=== PATIENT | male | born 1950 | race American Indian/Alaskan Native ===

== ENCOUNTER 2021-06-15 10:22 | Inpatient (IN) | payer SELFPAY ==
--- NOTE | 2021-06-15 11:07 | Emergency Department Report ---
ED Shortness of Breath HPI - General Chief Complaint: Dyspnea/Respdistress Stated Complaint: SOB Time Seen by Provider: 06/15/21 11:02 Source: patient Mode of arrival: Ambulatory Limitations: No Limitations - History of Present Illness Initial Comments: 70-year-old male with a past medical history of hypertension, hyperlipidemia and diabetes presents to the ER today with complaints of shortness of breath. Patient states that symptoms started about a month ago. He states that his shortness of breath is mainly on exertion and has been getting worse over the past 1 month. He reports left-sided chest pain which started about 1 week ago. He states that is intermittent and nonradiating. He reports chronic intermittent lower extremity swelling, but he states that he has been getting worse over the past couple weeks. He denies any calf pain. He denies any cough, wheezing or fever or chills at home. He denies any URI symptoms. He denies any ill contacts. He denies any history of PEs or DVT and denies any risk factors for PE or DVT. He denies any history of heart disease, or lung disease. He states that he does not smoke. He states that he did take the Vestor vaccine about 3 months ago. Complaint: shortness of breath -: month(s) (1) - Related Data Home Medications Medication Instructions Recorded Confirmed Last Taken NIFEdipine [Nifedipine ER] 60 mg PO BID 06/15/21 06/15/21 06/15/21 07:00 metFORMIN [Glucophage] 500 mg PO BID 06/15/21 06/15/21 Unknown Allergies Allergy/AdvReac Type Severity Reaction Status Date / Time No Known Allergies Allergy Verified 06/15/21 10:30 ED Review of Systems ROS: Stated complaint: SOB Other details as noted in HPI Comment: All other systems reviewed and negative Constitutional: denies: chills, fever, weakness Eyes: denies: eye pain, eye discharge, vision change ENT: denies: ear pain, throat pain, congestion Respiratory: shortness of breath, SOB with exertion. denies: cough, wheezing Cardiovascular: chest pain Gastrointestinal: denies: abdominal pain, nausea, diarrhea, constipation, hematemesis, melena, hematochezia Genitourinary: denies: urgency, dysuria Musculoskeletal: joint swelling. denies: back pain, arthralgia, myalgia Skin: denies: rash, lesions, change in color, change in hair/nails, pruritus Neurological: denies: headache, weakness, numbness, paresthesias, confusion, abnormal gait, vertigo Psychiatric: denies: anxiety, depression, auditory hallucinations, visual hallucinations, homicidal thoughts, suicidal thoughts Hematological/Lymphatic: denies: easy bleeding, swollen glands ED Past Medical Hx - Past Medical History Previous Medical History?: Yes Hx Hypertension: Yes - Surgical History Past Surgical History?: No - Medications Home Medications: Home Medications Medication Instructions Recorded Confirmed Last Taken Type NIFEdipine [Nifedipine ER] 60 mg PO BID 06/15/21 06/15/21 06/15/21 07:00 History metFORMIN [Glucophage] 500 mg PO BID 06/15/21 06/15/21 Unknown History ED Physical Exam - General Limitations: No Limitations General appearance: alert, in no apparent distress - Head Head exam: Present: atraumatic, normocephalic, normal inspection - Eye Eye exam: Present: normal appearance, PERRL, EOMI Pupils: Present: normal accommodation - ENT ENT exam: Present: normal exam, mucous membranes moist, TM's normal bilaterally - Neck Neck exam: Present: normal inspection, full ROM. Absent: meningismus - Respiratory Respiratory exam: Present: normal lung sounds bilaterally. Absent: respiratory distress, wheezes, rales, rhonchi, stridor - Cardiovascular Cardiovascular Exam: Present: regular rate, normal rhythm, normal heart sounds - Extremities Exam Extremities exam: Present: pedal edema (mild 1+ pitting edema ). Absent: calf tenderness - Back Exam Back exam: Present: full ROM - Neurological Exam Neurological exam: Present: alert, oriented X3, CN II-XII intact - Psychiatric Psychiatric exam: Present: normal affect, normal mood - Skin Skin exam: Present: intact ED Course Vital Signs 06/15/21 06/15/21 06/15/21 10:31 11:49 13:15 Temperature 98.5 F 97.4 F L Pulse Rate 99 H 93 H Respiratory 16 16 12 Rate Blood Pressure 162/91 [Left] O2 Sat by Pulse 99 99 99 Oximetry 06/15/21 13:31 Temperature 98.8 F Pulse Rate 87 Respiratory 18 Rate Blood Pressure 156/92 [Left] O2 Sat by Pulse 99 Oximetry ED Medical Decision Making - Lab Data Result diagrams: 06/15/21 11:56 06/15/21 11:56 - EKG Data EKG shows normal: sinus rhythm Rate: normal (97) No standard instances [place]/QRS: left axis deviation Qtc: prolonged - EKG Data Interpretation: nonspecific ST-T wave lencho - Radiology Data Radiology results: report reviewed Patient: REZA MARSH MR#: [id number] : 1950 Acct:[id number] Age/Sex: 70 / M ADM Date: 06/15/21 Loc: ED Attending Dr: Ordering Physician: ITZEL REYNAGA Date of Service: 06/15/21 Procedure(s): XR chest routine 2V Accession Number(s): [id number] cc: ITZEL REYNAGA Fluoro Time In Minutes: CHEST 2 VIEWS INDICATION / CLINICAL INFORMATION: Chest Pain/sob. COMPARISON: None available. FINDINGS: SUPPORT DEVICES: None. HEART / MEDIASTINUM: No significant abnormality. LUNGS / PLEURA: No significant pulmonary or pleural abnormality. No pne umothorax. ADDITIONAL FINDINGS: No significant additional findings. IMPRESSION: 1. No acute findings. Signer Name: Jc Aleman MD Signed: 06/15/2021 11:22 AM Workstation Name: [id number] Transcribed By: SB Dictated By: JC ALEMAN MD Electronically Authenticated By: JC ALEMAN MD Signed Date/Time: 06/15/211121 DD/ 21 TD/TT: [facility] [address] [place] [address] Nuclear Medicine Report Signed Patient: REZA MARSH MR#: [id number] : 1950 Acct:[id number] Age/Sex: 70 / M ADM Date: 06/15/21 Loc: ED Attending Dr: Ordering Physician: ITZEL REYNAGA Date of Service: 06/15/21 Procedure(s): NM perfusion only lung scan Accession Number(s): [id number] cc: ITZEL REYNAGA NUCLEAR MEDICINE PERFUSION SCAN INDICATION: Elevated D-Dimer, SOB CORRELATION: Chest x-ray performed earlier today at 1113 hours RADIOPHARMACEUTICAL: Perfusion: 5.3 mCi Tc-99m MAA given IV FINDINGS: Perfusion images show symmetric and uniform radiotracer distribution throughout bilateral lung zones with no evidence of unmatched segmental perfusion defects. Normal cardiac silhouette. IMPRESSION: Low probability perfusion scan for pulmonary embolism. Signer Name: Lang Mcdermott Jr, MD Signed: 06/15/2021 2:05 PM Workstation Name: [id number] Transcribed By: TTR Dictated By: LANG MCDERMOTT JR, MD Electronically Authenticated By: LANG MCDERMOTT JR, MD Signed Date/Time: 06/15/211404 DD/ 03 TD/TT: - Medical Decision Making 1328; labs reviewed --CBC shows mild anemia with a hemoglobin of 9.5, but otherwise unremarkable; CMP shows that patient is in renal failure with a creatinine of 10.5 and the BUN of 85, his troponin is also positive at 0.103, BNP is 3359, D-dimer is positive at 1059.21; chest x-ray shows nothing acute. Given patient's abnormal renal functions, CTA changed over to a VQ scan. Patient currently laying in the bed comfortably is not in any acute distress. He denies any chest pain currently. He is currently not toxic or ill-appearing. Discussed lab results with patient, he does admit that he has some level of renal insufficiency but he is not on dialysis. He denies again any history of cardiac disease or ever having had a stress test or heart cath in the past and he has never seen a sole tier in the past. Informed patient that given abnormal findings, he will be admitted to the hospital for additional cardiac work-up. 1335: Discussed case with Dr Dale for admission Critical care attestation.: If time is entered above; I have spent that time in minutes in the direct care o f this critically ill patient, excluding procedure time. ED Disposition Clinical Impression: NSTEMI (non-ST elevated myocardial infarction), Renal failure, Elevated d-dimer Disposition: 04 [facility] Is pt being admited?: Yes Condition: Stable
--- NOTE | 2021-06-15 11:27 | XRay Report ---
CHEST 2 VIEWS INDICATION / CLINICAL INFORMATION: Chest Pain/sob. COMPARISON: None available. FINDINGS: SUPPORT DEVICES: None. HEART / MEDIASTINUM: No significant abnormality. LUNGS / PLEURA: No significant pulmonary or pleural abnormality. No pneumothorax. ADDITIONAL FINDINGS: No significant additional findings. IMPRESSION: 1. No acute findings. Signer Name: Jc Aleman MD Signed: 06/15/2021 11:22 AM Workstation Name: [id number]
[2021-06-15 12:24] LABS: Basophils % (Auto) 0.2 % (0.0-1.8); Eosinophils % (Auto) 0.3 % (0.0-4.3); Hematocrit 28.7 % (35.5-45.6); Hemoglobin 9.5 gm/dl (11.8-15.2); Lymphocytes # (Auto) 1.2 K/mm3 (1.2-5.4); Lymphocytes % (Auto) 15.8 % (13.4-35.0); Mean Corpuscular HGB Conc 33 % (32-34); Mean Corpuscular Volume 83 fl (84-94); Monocytes # (Auto) 0.5 K/mm3 (0.0-0.8); Monocytes % (Auto) 6.9 % (0.0-7.3); Platelet Count 164 K/mm3 (140-440); Red Blood Count 3.44 M/mm3 (3.65-5.03); Red Cell Distribution Width 16.4 % (13.2-15.2)
[2021-06-15 12:47] LABS: Albumin 4.2 g/dL (3.9-5); Calcium 6.3 mg/dL (8.4-10.2)
[2021-06-15] MEDS ORDERED: ASPIRIN 325 MG TAB PO ONE (13:18)
--- NOTE | 2021-06-15 14:09 | Nuclear Medicine Report ---
NUCLEAR MEDICINE PERFUSION SCAN INDICATION: Elevated D-Dimer, SOB CORRELATION: Chest x-ray performed earlier today at 1113 hours RADIOPHARMACEUTICAL: Perfusion: 5.3 mCi Tc-99m MAA given IV FINDINGS: Perfusion images show symmetric and uniform radiotracer distribution throughout bilateral lung zones with no evidence of unmatched segmental perfusion defects. Normal cardiac silhouette. IMPRESSION: Low probability perfusion scan for pulmonary embolism. Signer Name: Lang Mcdermott Jr, MD Signed: 06/15/2021 2:05 PM Workstation Name: [id number]
[2021-06-15 15:13] LABS: Chol/HDL Ratio 1.96 %
[2021-06-15] MEDS ORDERED: ACETAMINOPHEN 325 MG TAB PO PRN (17:51)
[2021-06-15] MEDS ORDERED: METOCLOPRAMIDE 10 MG/2 ML INJ IV PRN (17:51)
[2021-06-15] MEDS ORDERED: oxyCODONE /ACETAMINOPHEN 5-325MG TAB PO PRN (17:51)
[2021-06-15] MEDS ORDERED: HYDROmorphone 1 MG/1 ML INJ IV PRN (17:51)
[2021-06-15] MEDS ORDERED: ONDANSETRON 4 MG/2 ML INJ IV PRN (17:51)
--- NOTE | 2021-06-15 17:51 | History and Physical Report ---
History of Present Illness Date of examination: 06/15/21 Date of admission: 06/15/21 13:36 Chief complaint: Shortness of breath for 4 weeks History of present illness: 70-year-old -[place] male with history of chronic kidney disease, hypertension and type 2 diabetes comes in for shortness of breath of unknown duration will also for the last 1 week. Patient with orthopnea. Patient has CKD. For follow-up. Also complains of lower extremity swelling. Patient is shortness of breath on minimal exertion consistent with class IV NYHA symptoms. Also orthopnea present. Patient did not have dialysis but patient knows that he has chronic kidney disease. No fever or chills. Patient is vaccinated. Took [employer] vaccination 3 months ago Patient has no known history of pulmonary embolism or DVT. - Past Medical History Previous Medical History?: Yes --Hypertension: Yes --CKD - Surgical History and Past Surgical History?: No -social history No smoking or drinking alcohol - family history HTN Review of Systems ROS: Stated complaint: SOB Other details as noted in HPI Comment: All other systems reviewed and negative Constitutional: denies: chills, fever, weakness Eyes: denies: eye pain, eye discharge, vision change ENT: denies: ear pain, throat pain, congestion Respiratory: shortness of breath, SOB with exertion. denies: cough, wheezing Cardiovascular: chest pain Gastrointestinal: denies: abdominal pain, nausea, diarrhea, constipation, hematemesis, melena, hematochezia Genitourinary: denies: urgency, dysuria Musculoskeletal: joint swelling. denies: back pain, arthralgia, myalgia Skin: denies: rash, lesions, change in color, change in hair/nails, pruritus Neurological: denies: headache, weakness, numbness, paresthesias, confusion, abnormal gait, vertigo Psychiatric: denies: anxiety, depression, auditory hallucinations, visual hallucinations, homicidal thoughts, suicidal thoughts Hematological/Lymphatic: denies: easy bleeding, swollen glands Medications and Allergies Allergies Allergy/AdvReac Type Severity Reaction Status Date / Time No Known Allergies Allergy Verified 06/15/21 10:30 Home Medications Medication Instructions Recorded Confirmed Last Taken Type NIFEdipine [Nifedipine ER] 60 mg PO BID 06/15/21 06/15/21 06/15/21 07:00 History metFORMIN [Glucophage] 500 mg PO BID 06/15/21 06/15/21 Unknown History Active Meds: Active Medications Nifedipine (Nifedipine Xl 60 Mg Tab) 60 mg PO BID MELLISA Exam - Constitutional Vitals: Temp Pulse Resp BP Pulse Ox 98.8 F 87 18 156/92 99 06/15/21 13:31 06/15/21 13:31 06/15/21 13:31 06/15/21 13:31 06/15/21 13:31 General appearance: Present: mild distress, well-nourished - EENT Eyes: Present: PERRL ENT: hearing intact, clear oral mucosa - Neck Neck: Present: supple, normal ROM - Respiratory Respiratory effort: normal Respiratory: bilateral: CTA - Cardiovascular Heart rate: 78 Rhythm: regular Heart Sounds: Present: S1 & S2. Absent: rub, click - Extremities Extremities: pulses symmetrical, No edema Peripheral Pulses: within normal limits - Abdominal General gastrointestinal: Present: soft, non-tender, non-distended, normal bowel sounds Male genitourinary: Present: normal - Integumentary Integumentary: Present: clear, warm, dry - Musculoskeletal Musculoskeletal: gait normal, strength equal bilaterally - Psychiatric Psychiatric: appropriate mood/affect, intact judgment & insight - Neurologic Neurologic: CNII-XII intact, moves all extremities - Allied Health Allied health notes reviewed: nursing, case management HEART Score - HEART Score History: Slightly suspicious Age: > 65 Risk factors: 1-2 risk factors Troponin: Troponin T 0.105 ng/mL (0.00-0.029) H* 06/15/21 13:40 - Critical Actions Critical Actions: 4-6 pts:12-16.6% risk of adverse cardiac event. Should be admitted Results - Labs CBC & Chem 7: 06/16/21 02:49 06/16/21 02:49 Labs: Laboratory Last Values WBC 7.4 K/mm3 (4.5-11.0) 06/15/21 11:56 RBC 3.44 M/mm3 (3.65-5.03) L 06/15/21 11:56 Hgb 9.5 gm/dl (11.8-15.2) L 06/15/21 11:56 Hct 28.7 % (35.5-45.6) L 06/15/21 11:56 MCV 83 fl (84-94) L 06/15/21 11:56 MCH 28 pg (28-32) 06/15/21 11:56 MCHC 33 % (32-34) 06/15/21 11:56 RDW 16.4 % (13.2-15.2) H 06/15/21 11:56 Plt Count 164 K/mm3 (140-440) 06/15/21 11:56 Lymph % (Auto) 15.8 % (13.4-35.0) 06/15/21 11:56 [place] % (Auto) 6.9 % (0.0-7.3) 06/15/21 11:56 Eos % (Auto) 0.3 % (0.0-4.3) 06/15/21 11:56 Baso % (Auto) 0.2 % (0.0-1.8) 06/15/21 11:56 Lymph # (Auto) 1.2 K/mm3 (1.2-5.4) 06/15/21 11:56 [place] # (Auto) 0.5 K/mm3 (0.0-0.8) 06/15/21 11:56 Eos # (Auto) 0.0 K/mm3 (0.0-0.4) 06/15/21 11:56 Baso # (Auto) 0.0 K/mm3 (0.0-0.1) 06/15/21 11:56 Seg Neutrophils % 76.8 % (40.0-70.0) H 06/15/21 11:56 Seg Neutrophils # 5.7 K/mm3 (1.8-7.7) 06/15/21 11:56 D-Dimer 1059.21 ng/mlDDU (0-234) H 06/15/21 11:56 Sodium 138 mmol/L (137-145) 06/15/21 11:56 Potassium 4.7 mmol/L (3.6-5.0) 06/15/21 11:56 Chloride 96.3 mmol/L (98-107) L 06/15/21 11:56 Carbon Dioxide 22 mmol/L (22-30) 06/15/21 11:56 Anion Gap 24 mmol/L 06/15/21 11:56 BUN 85 mg/dL (9-20) H 06/15/21 11:56 Creatinine 10.5 mg/dL (0.8-1.3) H 06/15/21 11:56 Estimated GFR 5 ml/min 06/15/21 11:56 BUN/Creatinine Ratio 8 % 06/15/21 11:56 Glucose 146 mg/dL (75-100) H 06/15/21 11:56 Calcium 6.3 mg/dL (8.4-10.2) L 06/15/21 11:56 Magnesium 1.90 mg/dL (1.7-2.3) 06/15/21 13:40 Total Bilirubin 0.30 mg/dL (0.1-1.2) 06/15/21 11:56 AST 11 units/L (5-40) 06/15/21 11:56 ALT 10 units/L (7-56) 06/15/21 11:56 Alkaline Phosphatase 86 units/L (35-129) 06/15/21 11:56 Troponin T 0.105 ng/mL (0.00-0.029) H* 06/15/21 13:40 NT-Pro-B Natriuret Pep 3327 pg/mL (0-900) H 06/15/21 13:40 Total Protein 7.5 g/dL (6.3-8.2) 06/15/21 11:56 Albumin 4.2 g/dL (3.9-5) 06/15/21 11:56 Albumin/Globulin Ratio 1.3 % 06/15/21 11:56 Triglycerides 67 mg/dL (2-149) 06/15/21 11:56 Cholesterol 130 mg/dL (50-199) 06/15/21 11:56 LDL Cholesterol Direct 55 mg/dL (50-130) 06/15/21 11:56 HDL Cholesterol 66 mg/dL (40-59) H 06/15/21 11:56 Cholesterol/HDL Ratio 1.96 % 06/15/21 11:56 Lipase 41 units/L (13-60) 06/15/21 11:56 - Imaging and Cardiology EKG: report reviewed Imaging and Cardiology: Chest x-ray No acute findings Pulmonary perfusion scan Low probability perfusion scan for pulmonary embolism Assessment and Plan Advance Directives: Yes (Full code) VTE prophylaxis?: Chemical Plan of care discussed with patient/family: Yes - Patient Problems (1) NSTEMI (non-ST elevated myocardial infarction) Current Visit: Yes Status: Acute Plan to address problem: Secondary to troponin leak CK-MBs--normal Cardiology consult Heparin was not initiated at this point because NSTEMI type II leak is more common in the setting Lexiscan if cardiology agrees (2) ESRD needing dialysis Current Visit: Yes Status: Acute Plan to address problem: Patient never had dialysis before Creatinine is around 10,5 (3) Uncontrolled hypertension Current Visit: Yes Status: Acute Plan to address problem: Patient initiated on valsartan one 6212 and Coreg 12.5 twice daily.. Patient is on Procardia XL 60 twice a day from home Adjust medications as necessary IV hydralazine 10 mg every 3 hours as needed for blood pressure more than 160/100 (4) Volume overload Current Visit: Yes Status: Acute Qualifiers: Hypervolemia type: other Qualified Code(s): E87.79 - Other fluid overload Plan to address problem: Secondary to end-stage renal disease and fluid retention Patient needs hemodialysis Vascular surgery consult requested for Vas-Cath placement (5) Acute exacerbation of CHF (congestive heart failure) Current Visit: Yes Status: Acute Qualifiers: Heart failure type: combined systolic and diastolic Qualified Code(s): I50.43 - Acute on chronic combined systolic (congestive) and diastolic (congestive) heart failure Plan to address problem: Echocardiogram for ejection fraction and valve function Needs emergent hemodialysis for increased ultrafiltration (6) DVT prophylaxis Current Visit: Yes Status: Acute Plan to address problem: On heparin and GI prophylaxis
[2021-06-15] MEDS ORDERED: hydrALAZINE 20 MG/1 ML INJ IV PRN (18:10)
[2021-06-15 20:02] LABS: Creatine Kinase MB 4.3 ng/mL (0.0-4.0)
[2021-06-15] MEDS: VALSARTAN 160MG TAB PO SCH (21:09)
[2021-06-15] MEDS ORDERED: NON-FORMULARY EACH (Nifedipine [Nifedipine Er] 60 MG Tablet.Er) PO SCH (22:00)
[2021-06-16] MEDS: FAMOTIDINE 20 MG TAB PO SCH ×2 (00:05→10:10)
[2021-06-16] MEDS: carvediloL 12.5 MG TAB PO SCH ×2 (00:05→10:10)
[2021-06-16] MEDS: NIFEdipine XL 60 MG TAB PO SCH ×2 (00:06→10:10)
[2021-06-16] MEDS: HEPARIN 5,000 UNIT/1 ML VIAL SUB-Q SCH ×2 (00:06→10:10)
[2021-06-16 01:49] LABS: Creatine Kinase MB 4.3 ng/mL (0.0-4.0)
[2021-06-16 03:12] LABS: Basophils % (Auto) 0.5 % (0.0-1.8); Eosinophils # (Auto) 0.1 K/mm3 (0.0-0.4); Eosinophils % (Auto) 1.5 % (0.0-4.3); Hematocrit 29.5 % (35.5-45.6); Hemoglobin 9.6 gm/dl (11.8-15.2); Lymphocytes # (Auto) 1.8 K/mm3 (1.2-5.4); Lymphocytes % (Auto) 25.9 % (13.4-35.0); Mean Corpuscular HGB Conc 33 % (32-34); Mean Corpuscular Volume 83 fl (84-94); Monocytes # (Auto) 0.5 K/mm3 (0.0-0.8); Monocytes % (Auto) 6.7 % (0.0-7.3); Platelet Count 189 K/mm3 (140-440); Red Blood Count 3.57 M/mm3 (3.65-5.03); Red Cell Distribution Width 16.5 % (13.2-15.2)
[2021-06-16 04:02] LABS: Albumin 4.4 g/dL (3.9-5); Calcium 6.4 mg/dL (8.4-10.2)
[2021-06-16] MEDS: VALSARTAN 160MG TAB PO SCH (08:00)
[2021-06-16 08:03] LABS: Creatine Kinase MB 3.8 ng/mL (0.0-4.0)
--- NOTE | 2021-06-16 09:02 | Consultation ---
History of Present Illness - Reason for Consult Consult date: 06/16/21 Acute on chronic renal failure - History of Present Illness Patient with a history of known chronic kidney disease who follows up with a complex case manager in [place]. He presents complaining of worsening shortness of breath. PE work-up is negative. Patient is noted to have significantly worsening renal function. Beyond the shortness of breath, the patient has no complaints Past History Past Medical History: ESRD Medications and Allergies Allergies Allergy/AdvReac Type Severity Reaction Status Date / Time No Known Allergies Allergy Verified 06/15/21 10:30 Home Medications Medication Instructions Recorded Confirmed Last Taken Type NIFEdipine [Nifedipine ER] 60 mg PO BID 06/15/21 06/15/21 06/15/21 07:00 History metFORMIN [Glucophage] 500 mg PO BID 06/15/21 06/15/21 Unknown History Active Meds: Active Medications Acetaminophen (Acetaminophen 325 Mg Tab) 650 mg PO Q4H PRN PRN Reason: Pain MILD(1-3)/Fever >100.5/TAVERAS Carvedilol (Carvedilol 12.5 Mg Tab) 12.5 mg PO BID [facility] Last Admin: 06/16/21 00:05 Dose: 12.5 mg Documented by: Famotidine (Famotidine 20 Mg Tab) 20 mg PO BID [facility] Last Admin: 06/16/21 00:05 Dose: 20 mg Documented by: Heparin Sodium (Porcine) (Heparin 5,000 Unit/1 Ml Vial) 5,000 unit SUB-Q Q12HR [facility] Last Admin: 06/16/21 00:06 Dose: 5,000 unit Documented by: Hydralazine HCl (Hydralazine 20 Mg/1 Ml Inj) 10 mg IV Q3H PRN PRN Reason: Blood Pressure Hydromorphone HCl (Hydromorphone 1 Mg/1 Ml Inj) 0.5 mg IV Q3H PRN PRN Reason: Pain , Severe (7-10) Metoclopramide HCl (Metoclopramide 10 Mg/2 Ml Inj) 10 mg IV Q6H PRN PRN Reason: Nausea And Vomiting Nifedipine (Nifedipine Xl 60 Mg Tab) 60 mg PO BID [facility] Last Admin: 06/16/21 00:06 Dose: 60 mg Documented by: Ondansetron HCl (Ondansetron 4 Mg/2 Ml Inj) 4 mg IV Q3H PRN PRN Reason: Nausea And Vomiting Oxycodone/Acetaminophen (Oxycodone /Acetaminophen 5-325mg Tab) 1 tab PO Q6H PRN PRN Reason: Pain, Moderate (4-6) Sodium Chloride (Sodium Chloride 0.9% 10 Ml Flush Syringe) 10 ml IV BID [facility] Last Admin: 06/15/21 22:00 Dose: 10 ml Documented by: Sodium Chloride (Sodium Chloride 0.9% 10 Ml Flush Syringe) 10 ml IV PRN PRN PRN Reason: LINE FLUSH Valsartan (Valsartan 160mg Tab) 160 mg PO Q12H [facility] Last Admin: 06/15/21 21:09 Dose: 160 mg Documented by: Review of Systems All systems: negative Exam - Constitutional Vitals: Temp Pulse Resp BP Pulse Ox 98.0 F 78 18 109/64 97 06/16/21 08:03 06/16/21 08:03 06/16/21 08:03 06/16/21 08:03 06/16/21 08:03 General appearance: Present: no acute distress, obese - EENT Eyes: Present: EOM intact ENT: hearing intact - Neck Neck: Present: normal ROM - Respiratory Respiratory effort: normal - Abdominal General gastrointestinal: Present: deferred Male genitourinary: Present: deferred - Rectal Rectal Exam: deferred - Psychiatric Psychiatric: appropriate mood/affect, cooperative Results - Labs CBC & Chem 7: 06/16/21 02:49 06/16/21 02:49 Labs: Abnormal lab results 06/15/21 06/15/21 06/15/21 Range/Units 11:56 11:56 11:56 RBC 3.44 L (3.65-5.03) M/mm3 Hgb 9.5 L (11.8-15.2) gm/dl Hct 28.7 L (35.5-45.6) % MCV 83 L (84-94) fl MCH (28-32) pg RDW 16.4 H (13.2-15.2) % Seg Neutrophils % 76.8 H (40.0-70.0) % D-Dimer 1059.21 H (0-234) ng/mlDDU Chloride 96.3 L (98-107) mmol/L Carbon Dioxide (22-30) mmol/L BUN 85 H (9-20) mg/dL Creatinine 10.5 H (0.8-1.3) mg/dL Glucose 146 H (75-100) mg/dL Calcium 6.3 L (8.4-10.2) mg/dL Total Creatine Kinase (55-170) units/L CK-MB (CK-2) (0.0-4.0) ng/mL Troponin T 0.103 H* (0.00-0.029) ng/mL NT-Pro-B Natriuret Pep (0-900) pg/mL HDL Cholesterol 66 H (40-59) mg/dL 06/15/21 06/15/21 06/15/21 Range/Units 11:56 13:40 13:40 RBC (3.65-5.03) M/mm3 Hgb (11.8-15.2) gm/dl Hct (35.5-45.6) % MCV (84-94) fl MCH (28-32) pg RDW (13.2-15.2) % Seg Neutrophils % (40.0-70.0) % D-Dimer (0-234) ng/mlDDU Chloride (98-107) mmol/L Carbon Dioxide (22-30) mmol/L BUN (9-20) mg/dL Creatinine (0.8-1.3) mg/dL Glucose (75-100) mg/dL Calcium (8.4-10.2) mg/dL Total Creatine Kinase (55-170) units/L CK-MB (CK-2) (0.0-4.0) ng/mL Troponin T 0.105 H* (0.00-0.029) ng/mL NT-Pro-B Natriuret Pep 3359 H 3327 H (0-900) pg/mL HDL Cholesterol (40-59) mg/dL 06/15/21 06/16/21 06/16/21 Range/Units 19:17 00:45 02:49 RBC 3.57 L (3.65-5.03) M/mm3 Hgb 9.6 L (11.8-15.2) gm/dl Hct 29.5 L (35.5-45.6) % MCV 83 L (84-94) fl MCH 27 L (28-32) pg RDW 16.5 H (13.2-15.2) % Seg Neutrophils % (40.0-70.0) % D-Dimer (0-234) ng/mlDDU Chloride (98-107) mmol/L Carbon Dioxide (22-30) mmol/L BUN (9-20) mg/dL Creatinine (0.8-1.3) mg/dL Glucose (75-100) mg/dL Calcium (8.4-10.2) mg/dL Total Creatine Kinase 1195 H 1207 H (55-170) units/L CK-MB (CK-2) 4.3 H 4.3 H (0.0-4.0) ng/mL Troponin T (0.00-0.029) ng/mL NT-Pro-B Natriuret Pep (0-900) pg/mL HDL Cholesterol (40-59) mg/dL 06/16/21 06/16/21 Range/Units 02:49 06:54 RBC (3.65-5.03) M/mm3 Hgb (11.8-15.2) gm/dl Hct (35.5-45.6) % MCV (84-94) fl MCH (28-32) pg RDW (13.2-15.2) % Seg Neutrophils % (40.0-70.0) % D-Dimer (0-234) ng/mlDDU Chloride 95.9 L (98-107) mmol/L Carbon Dioxide 19 L (22-30) mmol/L BUN 88 H (9-20) mg/dL Creatinine 11.0 H (0.8-1.3) mg/dL Glucose 169 H (75-100) mg/dL Calcium 6.4 L (8.4-10.2) mg/dL Total Creatine Kinase 985 H (55-170) units/L CK-MB (CK-2) (0.0-4.0) ng/mL Troponin T (0.00-0.029) ng/mL NT-Pro-B Natriuret Pep (0-900) pg/mL HDL Cholesterol (40-59) mg/dL Assessment and Plan Patient will be brought down the Technical Maintenance Specialist today for placement of a Vas-Cath.
--- NOTE | 2021-06-16 09:57 | Consultation ---
History of Present Illness - Reason for Consult Consult date: 06/16/21 acute renal failure, end stage renal disease - History of Present Illness This is a 70 year-old man with ESRD who presents for shortness of breath, concerning renal labs Patient recently moved to the area from [place]. He does not have a local shovel operator but had labs showing creatinine of 11. Does have a history of CHF as well. Patient notes that he is feeling fine this AM, never had true shortness of breath per his report. Per his request, spoke with his prior shovel operator from [place] Dr. Alyssa Francisco at length this morning. He notes that clinically that patient has been stable, and in reviewing his renal f unction/electrolytes, he is at his baseline. He was working with the patient to start outpatient dialysis, but patient has been resistant to doing so. Currently, patient denies any issues including dyspnea, edema, nausea, vomiting, headaches. Past History Past Medical History: ESRD Past Surgical History: No surgical history Social history: no significant social history Family history: no significant family history Medications and Allergies Allergies Allergy/AdvReac Type Severity Reaction Status Date / Time No Known Allergies Allergy Verified 06/15/21 10:30 Home Medications Medication Instructions Recorded Confirmed Last Taken Type NIFEdipine [Nifedipine ER] 60 mg PO BID 06/15/21 06/15/21 06/15/21 07:00 History metFORMIN [Glucophage] 500 mg PO BID 06/15/21 06/15/21 Unknown History Active Meds: Active Medications Acetaminophen (Acetaminophen 325 Mg Tab) 650 mg PO Q4H PRN PRN Reason: Pain MILD(1-3)/Fever >100.5/TAVERAS Carvedilol (Carvedilol 12.5 Mg Tab) 12.5 mg PO BID [facility] Last Admin: 06/16/21 00:05 Dose: 12.5 mg Documented by: Famotidine (Famotidine 20 Mg Tab) 20 mg PO BID [facility] Last Admin: 06/16/21 00:05 Dose: 20 mg Documented by: Heparin Sodium (Porcine) (Heparin 5,000 Unit/1 Ml Vial) 5,000 unit SUB-Q Q12HR [facility] Last Admin: 06/16/21 00:06 Dose: 5,000 unit Documented by: Hydralazine HCl (Hydralazine 20 Mg/1 Ml Inj) 10 mg IV Q3H PRN PRN Reason: Blood Pressure Hydromorphone HCl (Hydromorphone 1 Mg/1 Ml Inj) 0.5 mg IV Q3H PRN PRN Reason: Pain , Severe (7-10) Metoclopramide HCl (Metoclopramide 10 Mg/2 Ml Inj) 10 mg IV Q6H PRN PRN Reason: Nausea And Vomiting Nifedipine (Nifedipine Xl 60 Mg Tab) 60 mg PO BID [facility] Last Admin: 06/16/21 00:06 Dose: 60 mg Documented by: Ondansetron HCl (Ondansetron 4 Mg/2 Ml Inj) 4 mg IV Q3H PRN PRN Reason: Nausea And Vomiting Oxycodone/Acetaminophen (Oxycodone /Acetaminophen 5-325mg Tab) 1 tab PO Q6H PRN PRN Reason: Pain, Moderate (4-6) Sodium Chloride (Sodium Chloride 0.9% 10 Ml Flush Syringe) 10 ml IV BID [facility] Last Admin: 06/15/21 22:00 Dose: 10 ml Documented by: Sodium Chloride (Sodium Chloride 0.9% 10 Ml Flush Syringe) 10 ml IV PRN PRN PRN Reason: LINE FLUSH Valsartan (Valsartan 160mg Tab) 160 mg PO Q12H [facility] Last Admin: 06/15/21 21:09 Dose: 160 mg Documented by: Review of Systems All systems: negative (as per HPI) Exam - Vital Signs Vital signs: Vital Signs Temp Pulse Resp BP Pulse Ox 98.5 F 99 H 16 162/91 99 06/15/21 10:31 06/15/21 10:31 06/15/21 10:31 06/15/21 10:31 06/15/21 10:31 - Physical Exam Narrative exam: Constitutional: no acute distress Head: NC/AT Neck: supple Lungs: clear to auscultation CV: RRR, no M/R/G Abdomen: soft, non-tender, bowel sounds present Back: nontender Extremities: no edema, pulses WNL Skin: intact Neuro: no focal deficits, alert and oriented x4 Results - Lab Results 06/16/21 02:49 06/16/21 02:49 Most recent lab results Calcium 6.4 mg/dL (8.4-10.2) L 06/16/21 02:49 Magnesium 1.90 mg/dL (1.7-2.3) 06/15/21 13:40 Assessment and Plan This is a 70 year old man with known CKD 5 who presents with abnormal labs. # ESRD: known for some time with active planning in outpatient basis in [place]. As noted, spoke at length today with his primary shovel operator in [place] who notes he is at baseline clinical status No immediate need for renal replacement therapy given his electrolytes/volume status, but will need planning for access in outpatient setting as well as dialysis planning, can be arranged as an outpatient - daily labs while inpatient - renally dose meds - avoid nephrotoxins - renal diet - we will arrange close outpatient CKD/ESKD follow up in next week with repeat labs, etc - please ensure outpatient vascular follow up and vein mapping with Dr. Morgan, et al; otherwise will refer on outpatient basis - no emergent need for HD # Acidosis: will start NaHCO3 repletion, please ensure prescription sent on discharge # Anemia: last hemoglobin 9.5, will need local bean picker machine operator for ESAs/IV iron, will refer as outpatient # HTN: BP stable this morning on current regimen # Secondary Hyperparathyroidism: check PTH, P as outpatient.
--- NOTE | 2021-06-16 10:35 | Electrocardiograph Report ---
[facility] Test Date: 2021-06-15 Test Time: 12:04:39 Pat Name: REZA MARSH Department: Room: A466 Gender: M Credit Portfolio Advisor: VINCENT : 1950 Requested By: ITZEL REYNAGA Order Number: [id number] Reading MD: Rashawn Gee Measurements Intervals [place] Rate: 87 P: 60 [place]: 190 QRS: -34 QRSD: 91 T: 77 QT: 416 QTc: 502 Interpretive Statements Sinus rhythm Probable left atrial enlargement Left axis deviation Probable anteroseptal infarct, old Prolonged QT interval No previous ECG available for comparison Electronically Signed On 06-16-2021 10:34:50 EDT by Rashawn Gee
--- NOTE | 2021-06-16 10:37 | Electrocardiograph Report ---
[facility] Test Date: 2021-06-16 Test Time: 07:17:42 Pat Name: REZA MARSH Department: Room: A466 1 Gender: M 911 Telecommunicator: PATRICE : 1950 Requested By: ITZEL REYNAGA Order Number: [id number] Reading MD: Rashawn Gee Measurements Intervals [place] Rate: 82 P: 63 MT: 203 QRS: -50 QRSD: 85 T: 69 QT: 428 QTc: 500 Interpretive Statements Sinus rhythm Left anterior fascicular block Compared to ECG 06/15/2021 12:04:39 Left anterior fascicular block now present Left-axis deviation no longer present Myocardial infarct finding no longer present Prolonged QT interval no longer present Electronically Signed On 06-16-2021 10:37:13 EDT by Rashawn Gee
[2021-06-16] MEDS ORDERED: FLU VACC QUAD 2021-22(6MOS UP)/PF 60 MCG/0.5 ML SYRINGE IM ONE (12:00)
--- NOTE | 2021-06-16 13:34 | XRay Report ---
LEFT FOOT 2 VIEW(S) INDICATION / CLINICAL INFORMATION: Left ankle pain COMPARISON: None available. FINDINGS: BONES / JOINT(S): No acute fracture or subluxation. Mild polyarticular arthritis DIP PIP joints of fi rst through fifth toes. Moderate degenerative arthrosis subtalar and talonavicular joints. SOFT TISSUES: Moderate dorsal soft tissue swelling ADDITIONAL FINDINGS: None. Signer Name: Maxime Fleming MD Signed: 06/16/2021 1:30 PM Workstation Name: [id number]
--- NOTE | 2021-06-16 14:31 | Discharge Summary ---
Providers - Providers Date of Admission: 06/15/21 13:36 Date of discharge: 06/16/21 Attending physician: SVETA MARCUS MD 06/15/21 17:51 Consult to Physician [CONS] Routine Comment: Consulting Provider: JOSEPH MORAN Physician Instructions: Reason For Exam: esrd 06/15/21 19:50 Consult to Physician [CONS] Routine Comment: Consulting Provider: SARAH TORREZ Physician Instructions: Reason For Exam: Vas-Cath placement Primary care physician: [employer] Hospitalization Reason for admission: Shortness of breath Condition: Good Pertinent studies: Reviewed. Procedures: None. Hospital course: The patient is a 70-year-old -Cymro male with history of chronic kidney disease, hypertension and type 2 diabetes presents with shortness of breath of for approximately 1 week. The patient was found to have significant CKD (stage V) leading to concerns for volume overload requiring emergent hemodialysis. The patient's symptoms resolved and he is currently saturating well on room air. Nephrology was consulted (who contacted his prior senior sous chef in [place]) and recommended permacath placement in the outpatient setting. The patient currently does not exhibit any symptoms or severe acidosis requiring emergent hemodialysis at this point in time. The patient is currently euvolemic per the last assessment. The patient complained of left ankle swelling that was evaluated with x-ray, and imaging was found to be ne gative for any acute abnormalities but positive for signs of chronic degenerative arthrosis. The patient is safe for discharge, and patient expressed understanding. The patient will follow up with nephrology in the outpatient setting for establishment of hemodialysis. Disposition: 01 HOME / SELF CARE / HOMELESS Final Discharge Diagnosis (Prints w/discharge instructions): Chronic kidney disease stage 5; metabolic acidosis with anion gap Time spent for discharge: 40 Core Measure Documentation - Palliative Care Palliative Care/ Comfort Measures: Not Applicable - Core Measures Any of the following diagnoses?: none - VTE Discharge Requirements Deep Vein Thrombosis/Pulmonary Embolism Present on Admission: No Has pt received <5 days of overlap therapy or INR<2.0: No (Not indicated) Anticoagulant overlap therapy prescribed at discharge: No Contraindication No Overlap Therapy order at DC: Not Indicated - Acute [place] Discharge Requirements Aspirin at discharge: No Reason for no aspirin on DC: Medical contraindication (Not indicated) SHELLY/ARB for LVSD if EF <40%: Not Applicable Reason for no SHELLY/ARB: Medical contraindication (Not indicated) Beta bran at discharge: No Reason for no beta bran on DC: Medical contraindication (Not indicated) Statin for LDL = or >100 mg/dl on DC: Not Applicable Reason for no statin on DC: Medical contraindication (Not indicated) - Heart Failure Discharge Requirements SHELLY/ARB for LVSD if EF <40%: Not Applicable Reason for no SHELLY/ARB: Medical contraindication (Not indicated) Beta bran at discharge: No Reason for no beta bran on DC: Medical contraindication (Not indicated) - Stroke Discharge Requirements Statin for LDL = or >70 mg/dl on DC: Not Applicable Reason for no statin on DC: Not Indicated Anticoag for atrial fib/atrial flutter: Not Applicable Reason for no anticoag for AF/F on DC: Not Indicated Antithrombotic for ischemic stroke: No Reason for no antithrombotic on DC: Not Indicated Exam - Constitutional Vitals: Temp Pulse Resp BP Pulse Ox 98.0 F 86 18 128/79 97 06/16/21 08:03 06/16/21 10:10 06/16/21 08:03 06/16/21 10:10 06/16/21 08:03 General appearance: Present: no acute distress, well-nourished, obese - EENT Eyes: Present: PERRL, EOM intact ENT: hearing intact, clear oral mucosa, dentition normal - Neck Neck: Present: supple, normal ROM - Respiratory Respiratory effort: normal - Cardiovascular Rhythm: regular Heart Sounds: Present: S1 & S2 - Extremities Extremities: no ischemia, pulses intact, pulses symmetrical, normal temperature, normal color Extremity abnormal: edema (Mild edema of left ankle) Peripheral Pulses: within normal limits - Abdominal General gastrointestinal: Present: soft, non-tender, non-distended, normal bowel sounds Male genitourinary: Present: deferred - Rectal Rectal Exam: deferred - Integumentary Integumentary: Present: clear, warm, dry - Musculoskeletal Musculoskeletal: strength equal bilaterally - Psychiatric Psychiatric: appropriate mood/affect, intact judgment & insight, memory intact, cooperative - Neurologic Neurologic: CNII-XII intact, moves all extremities - Allied Health Allied health notes reviewed: nursing Plan Activity: no restrictions Diet: renal Care Plan Goals: Patient will follow up with outpatient nephrology to establish plan for initiating hemodialysis. Health Concerns: Patient should return to the ER if they experience any of the following: Shortness of breath, chest pain/chest pressure, inability to produce urine, uncontrollable nausea and vomiting, weakness, or confusion. Assessment: Discharging home with family. Follow up with: PRIMARY CARE, [Primary Care Provider] - 7 Days AIDEN MARLOW MD [Staff Physician] - 14 Days Prescriptions: carvediloL [Coreg] 12.5 mg PO BID #30 tablet Valsartan [Diovan] 160 mg PO Q12H #30 tablet NIFEdipine XL [Procardia Xl] 60 mg PO BID #30 tablet
[2021-06-16 17:22] VITALS: BP 122/71
[2021-06-16] MEDS ORDERED: FAMOTIDINE 20 MG TAB PO SCH (22:00)
[2021-06-17] MEDS ORDERED: FLU VACC QUAD 2021-22(6MOS UP)/PF 60 MCG/0.5 ML SYRINGE IM ONE (12:00)
== END 2021-06-16 17:24 | disposition home or self-care (01) | DRG 280 ==
LOC: ED 10:22 → 4A 13:36
PROVIDERS: ADMIT Internal Medicine; ATTEND Student in an Organized Health Care Education/Training Program
DX: I13.2 Hypertensive heart and chronic kidney disease with heart failure and with stage 5 chronic kidney disease, or end stage renal disease (principal); N18.6 End stage renal disease; I21.A1 Myocardial infarction type 2; I50.43 Acute on chronic combined systolic (congestive) and diastolic (congestive) heart failure; E87.2 Acidosis; N25.81 Secondary hyperparathyroidism of renal origin; E78.5 Hyperlipidemia, unspecified; Z79.84 Long term (current) use of oral hypoglycemic drugs; E11.22 Type 2 diabetes mellitus with diabetic chronic kidney disease; D64.9 Anemia, unspecified
CPT/HCPCS: 36415; 71046; 78580; 80053; 80061; 82550; 82553; 83690; 83735; 83880; 84484; 85025; 85379; 93005; G0378; A9540; J1644

== ENCOUNTER 2021-06-29 15:16 | Inpatient (IN) | payer MEDICAID ==
--- NOTE | 2021-06-29 16:01 | Event Note ---
ED Screening Note ED Screening Note: Patient presents sent in by his speed runner Dr. Diaz He states he needs dialysis and they are planning to put a port in He states he has lower extremity edema worse in the left ankle This initial assessment/diagnostic orders/clinical plan/treatment(s) is/are subject to change based on patients health status, clinical progression and re- assessment by fellow clinical providers in the ED. Further treatment and workup at subsequent clinical providers discretion. Patient/guardian urged not to elope from the ED as their condition may be serious if not clinically assessed and managed. Initial orders include: Labs
[2021-06-29 16:20] LABS: Basophils % (Auto) 0.5 % (0.0-1.8); Eosinophils # (Auto) 0.1 K/mm3 (0.0-0.4); Eosinophils % (Auto) 1.3 % (0.0-4.3); Hematocrit 26.6 % (35.5-45.6); Hemoglobin 8.6 gm/dl (11.8-15.2); Lymphocytes # (Auto) 1.1 K/mm3 (1.2-5.4); Mean Corpuscular HGB Conc 32 % (32-34); Mean Corpuscular Volume 84 fl (84-94); Monocytes # (Auto) 0.6 K/mm3 (0.0-0.8); Monocytes % (Auto) 8.5 % (0.0-7.3); Platelet Count 153 K/mm3 (140-440); Red Blood Count 3.18 M/mm3 (3.65-5.03); Red Cell Distribution Width 17.4 % (13.2-15.2)
[2021-06-29 16:39] LABS: Albumin 4.1 g/dL (3.9-5); Calcium 6.4 mg/dL (8.4-10.2)
[2021-06-29] MEDS ORDERED: SODIUM BICARB 8.4% 50 MEQ/50 ML SYRINGE IV ONE (17:06)
[2021-06-29] MEDS ORDERED: SODIUM POLYSTYRENE 15 GM/60 ML ORAL LIQD PO ONE (17:07)
[2021-06-29] MEDS ORDERED: INSULIN REGULAR, HUMAN 100 UNITS/1 ML IV ONE (17:08)
[2021-06-29] MEDS ORDERED: DEXTROSE 50% IN WATER (25GM) 50 ML SYRINGE IV ONE (17:09)
--- NOTE | 2021-06-29 17:11 | Emergency Department Report ---
ED General Adult HPI - General Chief complaint: Recheck/Abnormal Lab/Rx Stated complaint: DIALYSIS, HIGH BLOOD PRESS Time Seen by Provider: 06/29/21 15:59 Source: patient Mode of arrival: Ambulatory Limitations: No Limitations - History of Present Illness Initial comments: Patient presents to the emergency department the chief complaint of lower extremity swelling. Patient presents to the ED by way of his forest pathology professor office was Dr. Orr. He has a history of chronic kidney disease stage V and is here for evaluation for dialysis. Patient denies chest pain or shortness of breath with exertion. He does complain of tightness of his lower extremities due to the swelling. -: Gradual Location: lower extremity Severity scale (0 -10): 2 Quality: other (tight) Consistency: constant Improves with: none Worsens with: none Associated Symptoms: denies other symptoms Treatments Prior to Arrival: none - Related Data Home Medications Medication Instructions Recorded Confirmed Last Taken NIFEdipine [Nifedipine ER] 60 mg PO BID 06/15/21 06/15/21 06/15/21 07:00 Previous Rx's Medication Instructions Recorded Last Taken Type NIFEdipine XL [Procardia Xl] 60 mg PO BID #30 tablet 06/16/21 Unknown Rx Valsartan [Diovan] 160 mg PO Q12H #30 tablet 06/16/21 Unknown Rx carvediloL [Coreg] 12.5 mg PO BID #30 tablet 06/16/21 Unknown Rx Allergies Allergy/AdvReac Type Severity Reaction Status Date / Time No Known Allergies Allergy Verified 06/15/21 10:30 ED Review of Systems ROS: Stated complaint: DIALYSIS, HIGH BLOOD PRESS Other details as noted in HPI Comment: All other systems reviewed and negative Constitutional: denies: chills, fever Eyes: denies: eye pain, eye discharge, vision change ENT: denies: ear pain, throat pain Respiratory: denies: cough, shortness of breath, wheezing Cardiovascular: denies: chest pain, palpitations Endocrine: no symptoms reported Gastrointestinal: denies: abdominal pain, nausea, diarrhea Genitourinary: denies: urgency, dysuria Musculoskeletal: denies: back pain, joint swelling, arthralgia Skin: denies: rash, lesions Neurological: denies: headache, weakness, paresthesias Psychiatric: denies: anxiety, depression Hematological/Lymphatic: denies: easy bleeding, easy bruising ED Past Medical Hx - Past Medical History Previous Medical History?: Yes Hx Hypertension: Yes Hx Renal Disease: Yes - Surgical History Past Surgical History?: No - Social History Smoking Status: Never Smoker Substance Use Type: None - Medications Home Medications: Home Medications Medication Instructions Recorded Confirmed Last Taken Type NIFEdipine [Nifedipine ER] 60 mg PO BID 06/15/21 06/15/21 06/15/21 07:00 History NIFEdipine XL [Procardia Xl] 60 mg PO BID #30 tablet 06/16/21 Unknown Rx Valsartan [Diovan] 160 mg PO Q12H #30 tablet 06/16/21 Unknown Rx carvediloL [Coreg] 12.5 mg PO BID #30 tablet 06/16/21 Unknown Rx ED Physical Exam - General Limitations: No Limitations General appearance: alert, in no apparent distress - Head Head exam: Present: atraumatic, normocephalic - Eye Eye exam: Present: normal appearance, PERRL, EOMI - ENT ENT exam: Present: mucous membranes moist - Neck Neck exam: Present: normal inspection - Respiratory Respiratory exam: Present: normal lung sounds bilaterally. Absent: respiratory distress - Cardiovascular Cardiovascular Exam: Present: regular rate, normal rhythm. Absent: systolic murmur, diastolic murmur, rubs, gallop - GI/Abdominal GI/Abdominal exam: Present: soft, normal bowel sounds - Rectal Rectal exam: Present: deferred - Extremities Exam Extremities exam: Present: other (LE edema) - Back Exam Back exam: Present: normal inspection - Neurological Exam Neurological exam: Present: alert, oriented X3 - Psychiatric Psychiatric exam: Present: normal affect, normal mood - Skin Skin exam: Present: warm, dry, intact, normal color. Absent: rash ED Course Vital Signs 06/29/21 06/29/21 06/29/21 15:34 18:08 18:16 Temperature 97.9 F Pulse Rate 80 88 Respiratory 22 14 Rate Blood Pressure 162/92 191/103 O2 Sat by Pulse 98 100 99 Oximetry 06/29/21 06/29/21 06/29/21 18:18 18:30 18:46 Temperature Pulse Rate 83 68 Respiratory 20 16 9 L Rate Blood Pressure 188/94 188/94 O2 Sat by Pulse 97 100 100 Oximetry 06/29/21 19:00 Temperature Pulse Rate 66 Respiratory 10 L Rate Blood Pressure 162/99 O2 Sat by Pulse 100 Oximetry ED Medical Decision Making - Lab Data Result diagrams: 06/29/21 16:02 06/29/21 16:02 Lab Results 06/29/21 06/29/21 06/29/21 Range/Units 16:02 16:02 Unknown WBC 7.2 (4.5-11.0) K/mm3 RBC 3.18 L (3.65-5.03) M/mm3 Hgb 8.6 L (11.8-15.2) gm/dl Hct 26.6 L (35.5-45.6) % MCV 84 (84-94) fl MCH 27 L (28-32) pg MCHC 32 (32-34) % RDW 17.4 H (13.2-15.2) % Plt Count 153 (140-440) K/mm3 Lymph % (Auto) 15.0 (13.4-35.0) % Evangeline % (Auto) 8.5 H (0.0-7.3) % Eos % (Auto) 1.3 (0.0-4.3) % Baso % (Auto) 0.5 (0.0-1.8) % Lymph # (Auto) 1.1 L (1.2-5.4) K/mm3 Evangeline # (Auto) 0.6 (0.0-0.8) K/mm3 Eos # (Auto) 0.1 (0.0-0.4) K/mm3 Baso # (Auto) 0.0 (0.0-0.1) K/mm3 Seg Neutrophils % 74.7 H (40.0-70.0) % Seg Neutrophils # 5.4 (1.8-7.7) K/mm3 PT 15.1 H (12.2-14.9) Sec. INR 1.07 (0.87-1.13) APTT 29.7 (24.2-36.6) Sec. Sodium 141 (137-145) mmol/L Potassium 5.6 H (3.6-5.0) mmol/L Chloride 103.5 (98-107) mmol/L Carbon Dioxide 22 (22-30) mmol/L Anion Gap 21 mmol/L BUN 90 H (9-20) mg/dL Creatinine 10.8 H (0.8-1.3) mg/dL Estimated GFR 6 ml/min BUN/Creatinine Ratio 8 % Glucose 122 H (75-100) mg/dL Calcium 6.4 L (8.4-10.2) mg/dL Total Bilirubin 0.30 (0.1-1.2) mg/dL AST 9 (5-40) units/L ALT 9 (7-56) units/L Alkaline Phosphatase 74 (35-129) units/L Total Protein 6.7 (6.3-8.2) g/dL Albumin 4.1 (3.9-5) g/dL Albumin/Globulin Ratio 1.6 % - EKG Data -: EKG Interpreted by Me EKG shows normal: sinus rhythm Rate: normal - EKG Data When compared to previous EKG there are: other 06/29/21 18:47 LAD - Radiology Data Radiology results: report reviewed - Medical Decision Making Patient given IV sodium bicarb, IV calcium chloride, IV insulin, IV D50, Kayexalate Critical Care Time: Yes Critical care time in (mins) excluding proc time.: 35 Critical care attestation.: If time is entered above; I have spent that time in minutes in the direct care of this critically ill patient, excluding procedure time. ED Disposition Clinical Impression: Hyperkalemia, Chronic kidney disease, stage V requiring chronic dialysis Disposition: 09 ADMITTED INPATIENT Is pt being admited?: Yes Does the pt Need Aspirin: No Condition: Fair Referrals: PRIMARY CARE, [Primary Care Provider] - 3-5 Days
[2021-06-29 17:38] LABS: INR 1.07 (0.87-1.13)
[2021-06-29 17:39] LABS: Partial Thromboplastin Time 29.7 Sec. (24.2-36.6)
[2021-06-29] MEDS ORDERED: CALCIUM CHLORIDE 1,000 MG in SODIUM CHLORIDE 0.9% 100 ML IV ONE (18:00)
[2021-06-30] MEDS ORDERED: ONDANSETRON 4 MG/2 ML INJ IV PRN (01:53)
[2021-06-30] MEDS ORDERED: METOCLOPRAMIDE 10 MG/2 ML INJ IV PRN ×2 (01:53→02:03)
[2021-06-30] MEDS ORDERED: ACETAMINOPHEN 325 MG TAB PO PRN (01:53)
[2021-06-30] MEDS ORDERED: HYDROmorphone 1 MG/1 ML INJ IV PRN (01:53)
--- NOTE | 2021-06-30 01:53 | History and Physical Report ---
History of Present Illness Date of examination: 06/29/21 Date of admission: 06/29/21 19:22 Chief complaint: Swelling of both the legs and shortness of breath for 1 week History of present illness: 70-year-old -[place] male with history of hypertension and end-stage renal disease was sent in by his manager cash for evaluation of dialysis. Patient has been getting shortness of breath on very minimal exertion, orthopnea and bilateral leg swelling. Patient is a very poor historian. Patient says he stays in [place]. Patient has chronic kidney disease stage V progressing to end-stage renal disease needing dialysis. His creatinine was in the mid tens in the emergency room. No fever or chills. - Past Medical History --Previous Medical History?: Yes --Hypertension: Yes --Renal Disease: Yes - Surgical History --Past Surgical History?: No - Social History --Smoking Status: Never Smoker --Substance Use Type: None -Family history Htn - Medications Home Medications: Home Medications Medication Instructions Recorded Confirmed Last Taken Type NIFEdipine [Nifedipine ER] 60 mg PO BID 06/15/21 06/15/21 06/15/21 07:00 History NIFEdipine XL [Procardia Xl] 60 mg PO BID #30 tablet 06/16/21 Unknown Rx Valsartan [Diovan] 160 mg PO Q12H #30 tablet 06/16/21 Unknown Rx carvediloL [Coreg] 12.5 mg PO BID #30 tablet 06/16/21 Unknown Rx Review of Systems --ROS: Stated complaint: DIALYSIS, HIGH BLOOD PRESS Other details as noted in HPI Comment: All other systems reviewed and negative Constitutional: denies: chills, fever Eyes: denies: eye pain, eye discharge, vision change ENT: denies: ear pain, throat pain Respiratory: denies: cough, shortness of breath, wheezing Cardiovascular: denies: chest pain, palpitations Endocrine: no symptoms reported Gastrointestinal: denies: abdominal pain, nausea, diarrhea Genitourinary: denies: urgency, dysuria Musculoskeletal: denies: back pain, joint swelling, arthralgia Skin: denies: rash, lesions Neurological: denies: headache, weakness, paresthesias Psychiatric: denies: anxiety, depression Hematological/Lymphatic: denies: easy bleeding, easy bruising Medications and Allergies Allergies Allergy/AdvReac Type Severity Reaction Status Date / Time No Known Allergies Allergy Verified 06/15/21 10:30 Home Medications Medication Instructions Recorded Confirmed Last Taken Type NIFEdipine [Nifedipine ER] 60 mg PO BID 06/15/21 06/15/21 06/15/21 07:00 History NIFEdipine XL [Procardia Xl] 60 mg PO BID #30 tablet 06/16/21 Unknown Rx Valsartan [Diovan] 160 mg PO Q12H #30 tablet 06/16/21 Unknown Rx carvediloL [Coreg] 12.5 mg PO BID #30 tablet 06/16/21 Unknown Rx Exam - Constitutional Vitals: Temp Pulse Resp BP Pulse Ox 98.7 F 82 11 L 137/101 99 06/30/21 01:22 06/30/21 01:22 06/30/21 01:22 06/30/21 01:22 06/30/21 01:22 General appearance: Present: no acute distress, well-nourished - EENT Eyes: Present: PERRL ENT: hearing intact, clear oral mucosa - Neck Neck: Present: supple, normal ROM - Respiratory Respiratory effort: normal Respiratory: bilateral: CTA - Cardiovascular Heart rate: 78 Rhythm: regular Heart Sounds: Present: S1 & S2. Absent: rub, click - Extremities Extremities: pulses symmetrical, No edema, abnormal (Swelling of both the lower extremities, 4+ pitting edema) Peripheral Pulses: within normal limits - Abdominal General gastrointestinal: Present: soft, non-tender, non-distended, normal bowel sounds Male genitourinary: Present: normal - Integumentary Integumentary: Present: clear, warm, dry - Musculoskeletal Musculoskeletal: gait normal, strength equal bilaterally - Psychiatric Psychiatric: appropriate mood/affect, intact judgment & insight - Neurologic Neurologic: CNII-XII intact, moves all extremities HEART Score - HEART Score History: Moderately suspicious Age: > 65 Risk factors: > 3 risk factors or hx of atherosclerotic disease Troponin: 1-3x normal limit - Critical Actions Critical Actions: 4-6 pts:12-16.6% risk of adverse cardiac event. Should be admitted Results - Labs CBC & Chem 7: 06/29/21 16:02 06/30/21 04:21 Labs: Laboratory Last Values WBC 7.2 K/mm3 (4.5-11.0) 06/29/21 16:02 RBC 3.18 M/mm3 (3.65-5.03) L 06/29/21 16:02 Hgb 8.6 gm/dl (11.8-15.2) L 06/29/21 16:02 Hct 26.6 % (35.5-45.6) L 06/29/21 16:02 MCV 84 fl (84-94) 06/29/21 16:02 MCH 27 pg (28-32) L 06/29/21 16:02 MCHC 32 % (32-34) 06/29/21 16:02 RDW 17.4 % (13.2-15.2) H 06/29/21 16:02 Plt Count 153 K/mm3 (140-440) 06/29/21 16:02 Lymph % (Auto) 15.0 % (13.4-35.0) 06/29/21 16:02 [place] % (Auto) 8.5 % (0.0-7.3) H 06/29/21 16:02 Eos % (Auto) 1.3 % (0.0-4.3) 06/29/21 16:02 Baso % (Auto) 0.5 % (0.0-1.8) 06/29/21 16:02 Lymph # (Auto) 1.1 K/mm3 (1.2-5.4) L 06/29/21 16:02 [place] # (Auto) 0.6 K/mm3 (0.0-0.8) 06/29/21 16:02 Eos # (Auto) 0.1 K/mm3 (0.0-0.4) 06/29/21 16:02 Baso # (Auto) 0.0 K/mm3 (0.0-0.1) 06/29/21 16:02 Seg Neutrophils % 74.7 % (40.0-70.0) H 06/29/21 16:02 Seg Neutrophils # 5.4 K/mm3 (1.8-7.7) 06/29/21 16:02 PT 15.1 Sec. (12.2-14.9) H 06/29/21 Unknown INR 1.07 (0.87-1.13) 06/29/21 Unknown APTT 29.7 Sec. (24.2-36.6) 06/29/21 Unknown Sodium 141 mmol/L (137-145) 06/29/21 16:02 Potassium 5.6 mmol/L (3.6-5.0) H 06/29/21 16:02 Chloride 103.5 mmol/L (98-107) 06/29/21 16:02 Carbon Dioxide 22 mmol/L (22-30) 06/29/21 16:02 Anion Gap 21 mmol/L 06/29/21 16:02 BUN 90 mg/dL (9-20) H 06/29/21 16:02 Creatinine 10.8 mg/dL (0.8-1.3) H 06/29/21 16:02 Estimated GFR 6 ml/min 06/29/21 16:02 BUN/Creatinine Ratio 8 % 06/29/21 16:02 Glucose 122 mg/dL (75-100) H 06/29/21 16:02 Calcium 6.4 mg/dL (8.4-10.2) L 06/29/21 16:02 Total Bilirubin 0.30 mg/dL (0.1-1.2) 06/29/21 16:02 AST 9 units/L (5-40) 06/29/21 16:02 ALT 9 units/L (7-56) 06/29/21 16:02 Alkaline Phosphatase 74 units/L (35-129) 06/29/21 16:02 Total Protein 6.7 g/dL (6.3-8.2) 06/29/21 16:02 Albumin 4.1 g/dL (3.9-5) 06/29/21 16:02 Albumin/Globulin Ratio 1.6 % 06/29/21 16:02 Short CBC 06/29/21 Range/Units 16:02 WBC 7.2 (4.5-11.0) K/mm3 Hgb 8.6 L (11.8-15.2) gm/dl Hct 26.6 L (35.5-45.6) % Plt Count 153 (140-440) K/mm3 BMP 06/29/21 06/30/21 16:02 04:21 Sodium 141 146 H Potassium 5.6 H 5.2 H Chloride 103.5 106.8 Carbon Dioxide 22 24 BUN 90 H 90 H Creatinine 10.8 H 11.1 H Glucose 122 H 101 H Calcium 6.4 L 6.6 L Liver Function 06/29/21 Range/Units 16:02 Total Bilirubin 0.30 (0.1-1.2) mg/dL AST 9 (5-40) units/L ALT 9 (7-56) units/L Alkaline Phosphatase 74 (35-129) units/L Albumin 4.1 (3.9-5) g/dL Assessment and Plan Advance Directives: Yes (Full code) VTE prophylaxis?: Chemical Plan of care discussed with patient/family: Yes - Patient Problems (1) Hypertensive emergency Current Visit: Yes Status: Acute Plan to address problem: Patient initiated on valsartan carvedilol and hydralazine 50 mg every 8 hours Hydralazine IV 10 mg every 3 hours as needed basis (2) Acute respiratory failure with hypoxia Current Visit: Yes Status: Acute Plan to address problem: Patient is minimally hypoxic O2 supplementation (3) Hypervolemia Current Visit: Yes Status: Acute Qualifiers: Hypervolemia type: unspecified Qualified Code(s): E87.70 - Fluid overload, unspecified Plan to address problem: Patient needs emergent hemodialysis Vas-Cath to be done followed by hemodialysis Vascular and nephrology consulted (4) ESRD needing dialysis Current Visit: No Status: Acute Plan to address problem: Patient needs a Vas-Cath and hemodialysis emergently Vascular surgery/IR and nephrology consult requested (5) Hyperkalemia Current Visit: Yes Status: Acute Plan to address problem: Hyperkalemia treated in the emergency room with Kayexalate calcium gluconate and sodium bicarbonate (6) Hypocalcemia Current Visit: Yes Status: Acute Plan to address problem: Caltrate D twice daily (7) Anemia Current Visit: Yes Status: Chronic Qualifiers: Anemia type: due to chronic kidney disease Plan to address problem: Anemia due to chronic kidney disease Will defer to nephrology regarding Epogen (8) DVT prophylaxis Current Visit: No Status: Acute Plan to address problem: On heparin and GI prophylaxis
[2021-06-30] MEDS: hydrALAZINE 20 MG/1 ML INJ IV PRN (02:13)
[2021-06-30] MEDS: hydrALAZINE 25 MG TAB PO SCH ×3 (02:13→17:02)
[2021-06-30] MEDS: carvediloL 12.5 MG TAB PO SCH ×3 (02:51→21:54)
[2021-06-30 05:10] LABS: Calcium 6.6 mg/dL (8.4-10.2)
[2021-06-30] MEDS ORDERED: CALCIUM GLUCONATE 2,000 MG in SODIUM CHLORIDE 0.9% 100 ML IV ONE (06:42)
[2021-06-30] MEDS: VALSARTAN 160MG TAB PO SCH ×2 (06:49→21:52)
[2021-06-30] MEDS ORDERED: SODIUM CHLORIDE 0.9% 100 ML IV PRN (10:00)
[2021-06-30] MEDS: CALCIUM CARB/VIT D3/MINERALS 600 MG/800 UNITS TAB PO SCH ×2 (10:40→21:54)
[2021-06-30] MEDS: FAMOTIDINE 10 MG TAB PO SCH ×2 (10:40→21:55)
--- NOTE | 2021-06-30 11:55 | Electrocardiograph Report ---
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
[2021-06-30] MEDS ORDERED: MIDAZOLAM 2 MG/2 ML INJ ONE (11:58)
[2021-06-30] MEDS ORDERED: fentaNYL 100 MCG/2 ML INJ ONE (11:58)
[2021-06-30] MEDS ORDERED: LIDOCAINE (2%) 20 MG/1 ML VIAL 20 ML MDV INFILTRATI ONE ×3 (12:00→12:41)
[2021-06-30] MEDS ORDERED: HEPARIN/NS 5000 UNIT/500ML 500 ML IR ONE (12:00)
--- NOTE | 2021-06-30 12:19 | Consultation ---
History of Present Illness - Reason for Consult Consult date: 06/30/21 End-stage renal disease - History of Present Illness Patient with a history of hypertension, end-stage renal disease who presents with worsening volume overload and shortness of breath. Patient has not yet been initiated on hemodialysis. He follows with Dr. Diaz Medications and Allergies Allergies Allergy/AdvReac Type Severity Reaction Status Date / Time tramadol AdvReac Vomiting Verified 06/30/21 09:22 Home Medications Medication Instructions Recorded Confirmed Last Taken Type NIFEdipine XL [Procardia Xl] 60 mg PO BID #30 tablet 06/16/21 06/30/21 06/28/21 Rx Valsartan [Diovan] 160 mg PO Q12H #30 tablet 06/16/21 06/30/21 06/28/21 Rx carvediloL [Coreg] 12.5 mg PO BID #30 tablet 06/16/21 06/30/21 06/28/21 Rx AtorvaSTATin [Lipitor] 40 mg PO QHS 06/30/21 06/30/21 06/28/21 History Cholecalciferol (Vitamin D3) 2 cap PO QDAY 06/30/21 06/30/21 06/28/21 History [Vitamin D3 5,000 UNIT] Cyanocobalamin (Vitamin B-12) 500 mcg SL QDAY 06/30/21 06/30/21 06/28/21 History [Vitamin B-12] Doxazosin [Cardura] 4 mg PO QDAY 06/30/21 06/30/21 06/28/21 History Magnesium 250 mg PO QDAY 06/30/21 06/30/21 06/28/21 History Thiamine HCl [Vitamin B-1] 250 mg PO QDAY 06/30/21 06/30/21 06/28/21 History Torsemide [Demadex] 100 mg PO BID 06/30/21 06/30/21 06/28/21 History Turmeric Root Extract [Turmeric 500 mg PO QDAY 06/30/21 06/30/21 06/28/21 History Curcumin] allopurinoL [Zyloprim] 100 mg PO QDAY 06/30/21 06/30/21 06/28/21 History predniSONE [Deltasone] 40 mg PO QDAY 06/30/21 06/30/21 06/28/21 History Active Meds: Active Medications Acetaminophen (Acetaminophen 325 Mg Tab) 650 mg PO Q4H PRN PRN Reason: Pain MILD(1-3)/Fever >100.5/TAVERAS Carvedilol (Carvedilol 12.5 Mg Tab) 12.5 mg PO BID [facility] Last Admin: 06/30/21 10:40 Dose: Not Given Documented by: Famotidine (Famotidine 10 Mg Tab) 10 mg PO BID [facility] Last Admin: 06/30/21 10:40 Dose: Not Given Documented by: Hydralazine HCl (Hydralazine 25 Mg Tab) 50 mg PO Q8H [facility] Last Admin: 06/30/21 02:13 Dose: 50 mg Documented by: Hydralazine HCl (Hydralazine 20 Mg/1 Ml Inj) 10 mg IV Q3H PRN PRN Reason: Blood Pressure Last Admin: 06/30/21 02:13 Dose: 10 mg Documented by: Hydromorphone HCl (Hydromorphone 1 Mg/1 Ml Inj) 0.5 mg IV Q3H PRN PRN Reason: Pain , Severe (7-10) Sodium Chloride (Nacl 0.9%) 100 mls @ 999 mls/hr IV EM PRN PRN Reason: Hypotension Metoclopramide HCl (Metoclopramide 10 Mg/2 Ml Inj) 2.5 mg IV Q6H PRN PRN Reason: Nausea And Vomiting Multivitamins/Minerals (Calcium Carb/Vit D3/Minerals 600 Mg/800 Units Tab) 1 each PO BID [facility] Last Admin: 06/30/21 10:40 Dose: Not Given Documented by: Ondansetron HCl (Ondansetron 4 Mg/2 Ml Inj) 4 mg IV Q8H PRN PRN Reason: Nausea And Vomiting Oxycodone/Acetaminophen (Oxycodone /Acetaminophen 5-325mg Tab) 1 tab PO Q6H PRN PRN Reason: Pain, Moderate (4-6) Sodium Chloride (Sodium Chloride 0.9% 10 Ml Flush Syringe) 10 ml IV BID [facility] Last Admin: 06/30/21 10:41 Dose: 10 ml Documented by: Sodium Chloride (Sodium Chloride 0.9% 10 Ml Flush Syringe) 10 ml IV PRN PRN PRN Reason: LINE FLUSH Valsartan (Valsartan 160mg Tab) 160 mg PO BID [facility] Last Admin: 06/30/21 06:49 Dose: 160 mg Documented by: Review of Systems All systems: negative Exam - Constitutional Vitals: Temp Pulse Resp BP Pulse Ox 98.8 F 77 11 L 156/86 100 06/30/21 05:11 06/30/21 06:49 06/30/21 05:11 06/30/21 06:49 06/30/21 05:11 General appearance: Present: no acute distress - EENT Eyes: Present: EOM intact ENT: hearing intact - Neck Neck: Present: supple - Respiratory Respiratory effort: normal, other (Sitting up) - Cardiovascular Rhythm: regular - Extremities Extremities: no ischemia Extremity abnormal: edema - Abdominal General gastrointestinal: Present: deferred Male genitourinary: Present: deferred - Rectal Rectal Exam: deferred - Psychiatric Psychiatric: appropriate mood/affect, cooperative Results - Labs CBC & Chem 7: 06/29/21 16:02 06/30/21 04:21 Labs: Abnormal lab results 06/29/21 06/29/21 06/29/21 Range/Units 16:02 16:02 Unknown RBC 3.18 L (3.65-5.03) M/mm3 Hgb 8.6 L (11.8-15.2) gm/dl Hct 26.6 L (35.5-45.6) % MCH 27 L (28-32) pg RDW 17.4 H (13.2-15.2) % [place] % (Auto) 8.5 H (0.0-7.3) % Lymph # (Auto) 1.1 L (1.2-5.4) K/mm3 Seg Neutrophils % 74.7 H (40.0-70.0) % PT 15.1 H (12.2-14.9) Sec. Sodium (137-145) mmol/L Potassium 5.6 H (3.6-5.0) mmol/L BUN 90 H (9-20) mg/dL Creatinine 10.8 H (0.8-1.3) mg/dL Glucose 122 H (75-100) mg/dL Calcium 6.4 L (8.4-10.2) mg/dL 06/30/21 Range/Units 04:21 RBC (3.65-5.03) M/mm3 Hgb (11.8-15.2) gm/dl Hct (35.5-45.6) % MCH (28-32) pg RDW (13.2-15.2) % [place] % (Auto) (0.0-7.3) % Lymph # (Auto) (1.2-5.4) K/mm3 Seg Neutrophils % (40.0-70.0) % PT (12.2-14.9) Sec. Sodium 146 H (137-145) mmol/L Potassium 5.2 H (3.6-5.0) mmol/L BUN 90 H (9-20) mg/dL Creatinine 11.1 H (0.8-1.3) mg/dL Glucose 101 H (75-100) mg/dL Calcium 6.6 L (8.4-10.2) mg/dL Assessment and Plan Patient was brought to the [facility] today for placement of a Vas-Cath and initiation of hemodialysis.
[2021-06-30] MEDS ORDERED: SODIUM CHLORIDE 0.9% 250ML 250 ML ONE (12:22)
[2021-06-30] MEDS ORDERED: HEPARIN 2,000 UNIT in SODIUM CHLORIDE 0.9% 500 ML 500 ML IR ONE (12:41)
[2021-06-30] MEDS ORDERED: HEPARIN 10,000 UNITS/10 ML VIAL ONE (12:42)
[2021-06-30] MEDS ORDERED: HEPARIN 10,000 UNITS/10 ML VIAL IV ONE (12:44)
--- NOTE | 2021-06-30 12:52 | Event Note ---
Date: 06/30/21 Not in room during visit, in labor service representative for procedure. Plan to start HD today following catheter placement Patient was seen outpatient yesterday and is agreeable to plan, permission was obtained from patient and daughter to initiate HD. All possible complications were discussed and questions were answered. Skyla Graham MD
[2021-06-30] MEDS ORDERED: hydrALAZINE 20 MG/1 ML INJ ONE (13:02)
--- NOTE | 2021-06-30 13:04 | Operative Report ---
Operative Report Operative Report: Exam: Ultrasound and fluoroscopic guided placement of Vas-Cath Clinical indication: Patient with a history of end-stage renal disease who presents with volume overload and needs immediate access for dialysis Date: 06/30/2021 Procedure: Following an explanation of the risks, benefits and alternatives; written informed consent was obtained. The patient was brought to the angiographic suite and placed in spine position on the examination table. Initial ultrasound evaluation of his neck demonstrated a patent right internal jugular vein. The patient's right neck was prepped and draped in the usual sterile fashion. 2% lidocaine was used for anesthesia. Under ultrasound guidance, the right internal jugular vein was cannulated with a 7 cm 18-gauge needle. A 0.035 guidewire was advanced into the IVC and right hepatic vein. The needle was removed and following serial dilation over the guidewire, a 15 cm precurved Vas-Cath was advanced over the guidewire to position the tip of the catheter in the proximal right atrium. The guidewire was removed. Both ports flushed and aspirated easily and were then locked with appropriate volumes of heparin. The catheter was securely fastened to the skin surface using 2-0 Ethilon suture. Sterile dressings were applied. The patient tolerated the procedure well. There were no immediate postprocedure complications. Sedation was not utilized secondary to patient's respiratory status. Continuous cardiopulmonary monitoring was utilized. Impression: Ultrasound and fluoroscopic guided placement of Vas-Cath via the right internal jugular vein.
--- NOTE | 2021-06-30 13:35 | Progress Note ---
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 #Hypertensive emergency #Volume overload/hypervolemia -Patient initiated on valsartan 160 mg daily, carvedilol 12.5 mg twice daily, p.o. hydralazine 50 mg every 8 hours, and IV hydralazine 10 mg every 3 hours as needed -Blood pressure goal <140/80 -continue to monitor #Newly diagnosed ESRD -Vas-Cath placed by Vascular (06/30/2021) -Nephrology on board; appreciate recs. Initiating hemodialysis today. -Renally dose medications. Avoid nephrotoxic drugs. -Initiating renal diet. -Continue to monitor #Acute hypoxic respiratory failure-resolved -Patient initially on 2 L nasal cannula -Likely secondary to hypertensive emergency and need for emergent dialysis -continue to monitor #Hyperkalemia #Hypocalcemia -Potassium 5.2; treated with Kayexalate, calcium gluconate, and sodium bicarbonate in the ED -Calcium repleted -Should be corrected with hemodialysis. Continue to monitor #Anemia of chronic disease -Hemoglobin 8.6 -Transfuse if hemoglobin less than 7 or patient becomes symptomatic -We will likely benefit from initiation of Epogen during hemodialysis -Continue to monitor #DVT prophylaxis -Continue subcutaneous heparin 5000 units every 8 hours Disposition Plan: Continue medical management Total Time Spent with Patient (Minutes): 30 History Interval history: No acute events overnight. Hospitalist Physical - Constitutional Vitals: Temp Pulse Resp BP Pulse Ox 98.8 F 83 15 169/94 100 06/30/21 05:11 06/30/21 10:00 06/30/21 10:00 06/30/21 10:00 06/30/21 09:00 General appearance: Present: no acute distress - EENT Eyes: Present: PERRL, EOM intact ENT: hearing intact, clear oral mucosa, dentition normal - Neck Neck: Present: supple, normal ROM - Respiratory Respiratory effort: normal - Cardiovascular Rhythm: regular Heart Sounds: Present: S1 & S2 - Extremities Extremities: no ischemia, pulses intact, pulses symmetrical, normal temperature, normal color Extremity abnormal: edema (1+ pitting edema of bilateral feet) Peripheral Pulses: within normal limits - Abdominal General gastrointestinal: soft, non-tender, non-distended, normal bowel sounds - Integumentary Integumentary: Present: clear, warm, dry - Psychiatric Psychiatric: appropriate mood/affect, memory intact, cooperative, other (limited insight of medical condition) - Neurologic Neurologic: CNII-XII intact, moves all extremities - Allied Health Allied health notes reviewed: nursing HEART Score - HEART Score Age: > 65 Risk factors: > 3 risk factors or hx of atherosclerotic disease Troponin: 1-3x normal limit - Critical Actions Critical Actions: 4-6 pts:12-16.6% risk of adverse cardiac event. Should be admitted Results - Labs CBC & Chem 7: 06/29/21 16:02 06/30/21 04:21 Labs: Laboratory Last Values WBC 7.2 K/mm3 (4.5-11.0) 06/29/21 16:02 RBC 3.18 M/mm3 (3.65-5.03) L 06/29/21 16:02 Hgb 8.6 gm/dl (11.8-15.2) L 06/29/21 16:02 Hct 26.6 % (35.5-45.6) L 06/29/21 16:02 MCV 84 fl (84-94) 06/29/21 16:02 MCH 27 pg (28-32) L 06/29/21 16:02 MCHC 32 % (32-34) 06/29/21 16:02 RDW 17.4 % (13.2-15.2) H 06/29/21 16:02 Plt Count 153 K/mm3 (140-440) 06/29/21 16:02 Lymph % (Auto) 15.0 % (13.4-35.0) 06/29/21 16:02 [place] % (Auto) 8.5 % (0.0-7.3) H 06/29/21 16:02 Eos % (Auto) 1.3 % (0.0-4.3) 06/29/21 16:02 Baso % (Auto) 0.5 % (0.0-1.8) 06/29/21 16:02 Lymph # (Auto) 1.1 K/mm3 (1.2-5.4) L 06/29/21 16:02 [place] # (Auto) 0.6 K/mm3 (0.0-0.8) 06/29/21 16:02 Eos # (Auto) 0.1 K/mm3 (0.0-0.4) 06/29/21 16:02 Baso # (Auto) 0.0 K/mm3 (0.0-0.1) 06/29/21 16:02 Seg Neutrophils % 74.7 % (40.0-70.0) H 06/29/21 16:02 Seg Neutrophils # 5.4 K/mm3 (1.8-7.7) 06/29/21 16:02 PT 15.1 Sec. (12.2-14.9) H 06/29/21 Unknown INR 1.07 (0.87-1.13) 06/29/21 Unknown APTT 29.7 Sec. (24.2-36.6) 06/29/21 Unknown Sodium 146 mmol/L (137-145) H 06/30/21 04:21 Potassium 5.2 mmol/L (3.6-5.0) H 06/30/21 04:21 Chloride 106.8 mmol/L (98-107) 06/30/21 04:21 Carbon Dioxide 24 mmol/L (22-30) 06/30/21 04:21 Anion Gap 20 mmol/L 06/30/21 04:21 BUN 90 mg/dL (9-20) H 06/30/21 04:21 Creatinine 11.1 mg/dL (0.8-1.3) H 06/30/21 04:21 Estimated GFR 6 ml/min 06/30/21 04:21 BUN/Creatinine Ratio 8 % 06/30/21 04:21 Glucose 101 mg/dL (75-100) H 06/30/21 04:21 Calcium 6.6 mg/dL (8.4-10.2) L 06/30/21 04:21 Total Bilirubin 0.30 mg/dL (0.1-1.2) 06/29/21 16:02 AST 9 units/L (5-40) 06/29/21 16:02 ALT 9 units/L (7-56) 06/29/21 16:02 Alkaline Phosphatase 74 units/L (35-129) 06/29/21 16:02 Total Protein 6.7 g/dL (6.3-8.2) 06/29/21 16:02 Albumin 4.1 g/dL (3.9-5) 06/29/21 16:02 Albumin/Globulin Ratio 1.6 % 06/29/21 16:02 Active Medications - Current Medications Current Medications: Generic Name Dose Route Start Last Admin Trade Name Freq PRN Reason Stop Dose Admin Acetaminophen 650 mg 06/30/21 01:53 Acetaminophen 325 Mg Tab PO Q4H PRN Pain MILD(1-3)/Fever >100.5/TAVERAS Carvedilol 12.5 mg 06/30/21 02:00 06/30/21 10:40 Carvedilol 12.5 Mg Tab PO Not Given BID MELLISA Famotidine 10 mg 06/30/21 10:00 06/30/21 10:40 Famotidine 10 Mg Tab PO Not Given BID MELLISA Hydralazine HCl 50 mg 06/30/21 02:00 06/30/21 02:13 Hydralazine 25 Mg Tab PO 50 mg Q8H MELLISA Administration Hydralazine HCl 10 mg 06/30/21 02:00 06/30/21 02:13 Hydralazine 20 Mg/1 Ml Inj IV 10 mg Q3H PRN Administration Blood Pressure Hydromorphone HCl 0.5 mg 06/30/21 01:53 Hydromorphone 1 Mg/1 Ml Inj IV Q3H PRN Pain , Severe (7-10) Sodium Chloride 100 mls @ 999 mls/hr 06/30/21 10:00 Nacl 0.9% IV EM PRN Hypotension Metoclopramide HCl 2.5 mg 06/30/21 02:03 Metoclopramide 10 Mg/2 Ml Inj IV Q6H PRN Nausea And Vomiting Multivitamins/Minerals 1 each 06/30/21 10:00 06/30/21 10:40 Calcium Carb/Vit D3/Minerals 600 Mg/800 Units Tab PO Not Given BID [facility] Ondansetron HCl 4 mg 06/30/21 01:53 Ondansetron 4 Mg/2 Ml Inj IV Q8H PRN Nausea And Vomiting Oxycodone/Acetaminophen 1 tab 06/30/21 01:53 Oxycodone /Acetaminophen 5-325mg Tab PO Q6H PRN Pain, Moderate (4-6) Sodium Chloride 10 ml 06/30/21 10:00 06/30/21 10:41 Sodium Chloride 0.9% 10 Ml Flush Syringe IV 10 ml BID MELLISA Administration Sodium Chloride 10 ml 06/30/21 01:53 Sodium Chloride 0.9% 10 Ml Flush Syringe IV PRN PRN LINE FLUSH Valsartan 160 mg 06/30/21 06:35 06/30/21 06:49 Valsartan 160mg Tab PO 160 mg BID MELLISA Administration
[2021-06-30 16:45] LABS: Hepatitis C Virus Antibody Non-Reactive (NonReactive)
[2021-06-30 17:05] LABS: Hepatitis B Surface Antigen Nonreactive (Negative)
[2021-07-01] MEDS: oxyCODONE /ACETAMINOPHEN 5-325MG TAB PO PRN ×2 (00:10→18:22)
[2021-07-01] MEDS: hydrALAZINE 25 MG TAB PO SCH ×3 (02:50→18:45)
[2021-07-01 06:33] LABS: Basophils % (Auto) 0.4 % (0.0-1.8); Eosinophils # (Auto) 0.1 K/mm3 (0.0-0.4); Eosinophils % (Auto) 1.8 % (0.0-4.3); Hematocrit 25.7 % (35.5-45.6); Hemoglobin 8.3 gm/dl (11.8-15.2); Lymphocytes # (Auto) 1.5 K/mm3 (1.2-5.4); Lymphocytes % (Auto) 20.1 % (13.4-35.0); Mean Corpuscular HGB Conc 32 % (32-34); Mean Corpuscular Volume 83 fl (84-94); Monocytes % (Auto) 13.2 % (0.0-7.3); Platelet Count 123 K/mm3 (140-440); Red Blood Count 3.11 M/mm3 (3.65-5.03)
[2021-07-01 06:35] LABS: INR 1.12 (0.87-1.13)
[2021-07-01 06:43] LABS: Albumin 3.6 g/dL (3.9-5); Calcium 7.4 mg/dL (8.4-10.2)
[2021-07-01] MEDS: VALSARTAN 160MG TAB PO SCH ×2 (09:34→22:04)
[2021-07-01] MEDS: carvediloL 12.5 MG TAB PO SCH ×2 (09:34→22:04)
[2021-07-01] MEDS: FAMOTIDINE 10 MG TAB PO SCH ×2 (09:34→22:04)
[2021-07-01] MEDS: CALCIUM CARB/VIT D3/MINERALS 600 MG/800 UNITS TAB PO SCH ×2 (09:34→22:04)
[2021-07-01] MEDS: predniSONE 10 MG TAB PO SCH (10:50)
--- NOTE | 2021-07-01 13:48 | Progress Note ---
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 #Hypertensive emergency-resolved #Volume overload/hypervolemia-resolved -Patient initiated on valsartan 160 mg daily, carvedilol 12.5 mg twice daily, p.o. hydralazine 50 mg every 8 hours, and IV hydralazine 10 mg every 3 hours as needed -Blood pressure goal <140/80 -Currently controlled with the initiation of hemodialysis -continue to monitor #Newly diagnosed ESRD -Vas-Cath placed by Vascular (06/30/2021) -Nephrology on board; appreciate recs. Initiated hemodialysis on 06/30/2021. Repeat dialysis today. -Renally dose medications. Avoid nephrotoxic drugs. -Continue renal diet. -Continue to monitor #Recurrent gout -Unable to utilize colchicine or allopurinol given ESRD -Initiating p.o. prednisone 30 mg for symptomatic relief. Will discuss with nephrology possible options for urate lowering medications given ESRD. -Continue to monitor #Acute hypoxic respiratory failure-resolved -Patient initially on 2 L nasal cannula -Likely secondary to hypertensive emergency and need for emergent dialysis -continue to monitor #Hyperkalemia-resolved #Hypocalcemia-resolved -Potassium 5.2; treated with Kayexalate, calcium gluconate, and sodium bicarbonate in the ED -Calcium repleted -Should be corrected with hemodialysis. Continue to monitor #Anemia of chronic disease -Hemoglobin 8.6 -Transfuse if hemoglobin less than 7 or patient becomes symptomatic -We will likely benefit from initiation of Epogen during hemodialysis -Continue to monitor #DVT prophylaxis -Continue subcutaneous heparin 5000 units every 8 hours #Discharge planning -Social work and case management currently working to obtain hemodialysis facility -Patient is self-pay and needs to initiate Medicaid/Medicare application. Disposition Plan: Continue medical management; pending outpatient HD facility Total Time Spent with Patient (Minutes): 30 History Interval history: Patient underwent placement of Vas-Cath in right upper chest and underwent initiation of dialysis on 06/30/2021. Patient tolerated both procedures well. Hospitalist Physical - Constitutional Vitals: Temp Pulse Resp BP Pulse Ox 98.1 F 92 H 18 164/81 98 07/01/21 07:40 07/01/21 07:45 07/01/21 07:45 07/01/21 07:40 07/01/21 07:45 General appearance: Present: no acute distress, well-nourished, obese - EENT Eyes: Present: PERRL, EOM intact ENT: hearing intact, clear oral mucosa, dentition normal - Neck Neck: Present: supple, normal ROM - Respiratory Respiratory effort: normal Details: Vas-Cath in upper right chest with appropriate tenderness but without purulence or skin breakdown. - Cardiovascular Rhythm: regular Heart Sounds: Present: S1 & S2 - Extremities Extremities: no ischemia, pulses intact, pulses symmetrical, normal temperature, normal color Extremity abnormal: edema (Trace to 1+ pitting edema in bilateral lower extremities to mid anguiano), tenderness (Tenderness of left ankle consistent with gout) Peripheral Pulses: within normal limits - Abdominal General gastrointestinal: soft, non-tender, non-distended, normal bowel sounds - Integumentary Integumentary: Present: clear, warm, dry - Psychiatric Psychiatric: appropriate mood/affect, memory intact, cooperative, other (Limited insight on severity of illness) - Neurologic Neurologic: CNII-XII intact, moves all extremities - Allied Health Allied health notes reviewed: nursing HEART Score - HEART Score Age: > 65 Risk factors: > 3 risk factors or hx of atherosclerotic disease Troponin: 1-3x normal limit - Critical Actions Critical Actions: 4-6 pts:12-16.6% risk of adverse cardiac event. Should be admitted Results - Labs CBC & Chem 7: 07/01/21 04:29 07/01/21 04:29 Labs: Laboratory Last Values WBC 7.6 K/mm3 (4.5-11.0) 07/01/21 04:29 RBC 3.11 M/mm3 (3.65-5.03) L 07/01/21 04:29 Hgb 8.3 gm/dl (11.8-15.2) L 07/01/21 04:29 Hct 25.7 % (35.5-45.6) L 07/01/21 04:29 MCV 83 fl (84-94) L 07/01/21 04:29 MCH 27 pg (28-32) L 07/01/21 04:29 MCHC 32 % (32-34) 07/01/21 04:29 RDW 17.0 % (13.2-15.2) H 07/01/21 04:29 Plt Count 123 K/mm3 (140-440) L 07/01/21 04:29 Lymph % (Auto) 20.1 % (13.4-35.0) 07/01/21 04:29 Simpson % (Auto) 13.2 % (0.0-7.3) H 07/01/21 04:29 Eos % (Auto) 1.8 % (0.0-4.3) 07/01/21 04:29 Baso % (Auto) 0.4 % (0.0-1.8) 07/01/21 04:29 Lymph # (Auto) 1.5 K/mm3 (1.2-5.4) 07/01/21 04:29 Simpson # (Auto) 1.0 K/mm3 (0.0-0.8) H 07/01/21 04:29 Eos # (Auto) 0.1 K/mm3 (0.0-0.4) 07/01/21 04:29 Baso # (Auto) 0.0 K/mm3 (0.0-0.1) 07/01/21 04:29 Seg Neutrophils % 64.5 % (40.0-70.0) 07/01/21 04:29 Seg Neutrophils # 4.9 K/mm3 (1.8-7.7) 07/01/21 04:29 PT 15.6 Sec. (12.2-14.9) H 07/01/21 04:29 INR 1.12 (0.87-1.13) 07/01/21 04:29 APTT 29.7 Sec. (24.2-36.6) 06/29/21 Unknown Sodium 141 mmol/L (137-145) 07/01/21 04:29 Potassium 4.4 mmol/L (3.6-5.0) 07/01/21 04:29 Chloride 101.7 mmol/L (98-107) 07/01/21 04:29 Carbon Dioxide 26 mmol/L (22-30) 07/01/21 04:29 Anion Gap 18 mmol/L 07/01/21 04:29 BUN 63 mg/dL (9-20) H 07/01/21 04:29 Creatinine 8.6 mg/dL (0.8-1.3) H 07/01/21 04:29 Estimated GFR 8 ml/min 07/01/21 04:29 BUN/Creatinine Ratio 7 % 07/01/21 04:29 Glucose 117 mg/dL (75-100) H 07/01/21 04:29 Calcium 7.4 mg/dL (8.4-10.2) L 07/01/21 04:29 Phosphorus 5.80 mg/dL (2.5-4.5) H 07/01/21 04:29 Magnesium 1.70 mg/dL (1.7-2.3) 07/01/21 04:29 Total Bilirubin 0.40 mg/dL (0.1-1.2) 07/01/21 04:29 AST 9 units/L (5-40) 07/01/21 04:29 ALT 7 units/L (7-56) 07/01/21 04:29 Alkaline Phosphatase 63 units/L (35-129) 07/01/21 04:29 Total Protein 6.2 g/dL (6.3-8.2) L 07/01/21 04:29 Albumin 3.6 g/dL (3.9-5) L 07/01/21 04:29 Albumin/Globulin Ratio 1.4 % 07/01/21 04:29 PTH Intact 335.8 pg/mL (15-65) H 06/30/21 16:06 Hepatitis A IgM Ab Non-reactive (NonReactive) 06/30/21 16:06 Hep Bs Antigen Nonreactive (Negative) 06/30/21 16:06 Hep B Core IgM Ab Non-reactive (NonReactive) 06/30/21 16:06 Hepatitis C Antibody Non-reactive (NonReactive) 06/30/21 16:06 Garcia/IV: Voiding Method Urinal Active Medications - Current Medications Current Medications: Generic Name Dose Route Start Last Admin Trade Name Freq PRN Reason Stop Dose Admin Acetaminophen 650 mg 06/30/21 01:53 Acetaminophen 325 Mg Tab PO Q4H PRN Pain MILD(1-3)/Fever >100.5/TAVERAS Carvedilol 12.5 mg 06/30/21 02:00 07/01/21 09:34 Carvedilol 12.5 Mg Tab PO 12.5 mg BID MELLISA Administration Famotidine 10 mg 06/30/21 10:00 07/01/21 09:34 Famotidine 10 Mg Tab PO 10 mg BID MELLISA Administration Hydralazine HCl 50 mg 06/30/21 02:00 07/01/21 09:33 Hydralazine 25 Mg Tab PO 50 mg Q8H MELLISA Administration Hydralazine HCl 10 mg 06/30/21 02:00 06/30/21 02:13 Hydralazine 20 Mg/1 Ml Inj IV 10 mg Q3H PRN Administration Blood Pressure Hydromorphone HCl 0.5 mg 06/30/21 01:53 Hydromorphone 1 Mg/1 Ml Inj IV Q3H PRN Pain , Severe (7-10) Sodium Chloride 100 mls @ 999 mls/hr 06/30/21 10:00 Nacl 0.9% IV EM PRN Hypotension Metoclopramide HCl 2.5 mg 06/30/21 02:03 Metoclopramide 10 Mg/2 Ml Inj IV Q6H PRN Nausea And Vomiting Multivitamins/Minerals 1 each 06/30/21 10:00 07/01/21 09:34 Calcium Carb/Vit D3/Minerals 600 Mg/800 Units Tab PO 1 each BID MELLISA Administration Ondansetron HCl 4 mg 06/30/21 01:53 Ondansetron 4 Mg/2 Ml Inj IV Q8H PRN Nausea And Vomiting Oxycodone/Acetaminophen 1 tab 06/30/21 01:53 07/01/21 00:10 Oxycodone /Acetaminophen 5-325mg Tab PO 1 tab Q6H PRN Administration Pain, Moderate (4-6) Prednisone 30 mg 07/01/21 10:00 07/01/21 10:50 Prednisone 10 Mg Tab PO 30 mg QDAY MELLISA Administration Sodium Chloride 10 ml 06/30/21 10:00 07/01/21 09:36 Sodium Chloride 0.9% 10 Ml Flush Syringe IV Not Given BID MELLISA Sodium Chloride 10 ml 06/30/21 01:53 Sodium Chloride 0.9% 10 Ml Flush Syringe IV PRN PRN LINE FLUSH Valsartan 160 mg 06/30/21 06:35 07/01/21 09:34 Valsartan 160mg Tab PO 160 mg BID MELLISA Administration Nutrition/Malnutrition Assess - Dietary Evaluation Nutrition/Malnutrition Findings: Nutrition Notes Start: 07/01/21 11:55 Freq: Status: Active Protocol: Document 07/01/21 11:55 MARIA ALEJANDRA (Rec: 07/01/21 12:14 MARIA ALEJANDRA [id number]) Nutrition Notes Need for Assessment generated from: chaser helper,MST Initial or Follow up Assessment Current Diagnosis CKD (stage V CKD),Hypertension Other Pertinent Diagnosis Lower extremities swelling, Anemia, w/Hemodialysis. Current Diet Renal Diet (since D 06/30). Labs/Tests 07/01: BUN 63, Cr 8.6, Glu 117 , Ca 7.4, Phos 5.8, T pro 6.2, Alb 3.6. Pertinent Medications 07/01: Nutritionally unremarkable. Height 6 ft Weight 125.5 kg [place] Body Weight (kg) 80.90 BMI 37.5 Weight Status Obese Percent of energy/protein needs met: Prescribed Renal Diet provides for energy/protein needs (2, 072 Kcal/77 g) during LOS. Burn Absent Trauma Absent GI Symptoms None Food Allergy No Skin Integrity/Comment Clear, warm, dry. Minimum of two criteria No physical signs of malnutrition #1 Nutrition Diagnosis No nutrition diagnosis at this time Comments: Pt shows no sign of Malnutrition risk with the information available at the time form Progress Notes and ADL Notes. Is patient on ventilator? No Is Patient Ambulatory and/or Out of Bed Yes REE-([place]-ambulatory/OOB) [ 2681.900 NUTR.[id number]] Kcal/Kg value to use for calculation 17 Approximate Energy Requirements Using 2134 kcal/Kg Calculation Used for Recommendations Kcal/kg Additional Notes Protein: 0.8-1.0 g/Kg/Kcal; 65 -81 g/day; 260-324 Kcal/day ( from IBW). Fluids: 1.0 ml/Kcal/day, or as per MD. Nutrition Intervention Change Diet Order: Continue Renal Diet. Goal #1 Maintain body weight within +/ -3% of current BWt during LOS. Goal #2 Reach and maintain acceptable chemistry lab values during LOS. Follow-Up By: 07/07/21 Additional Comments Continue monitoring acceptance of foods, %PO intake of meals , Hydration, and BM. - Attestation Statement I have reviewed and agreed w/ Malnutrition eval & tx plan: Yes
--- NOTE | 2021-07-01 17:14 | Consultation ---
History of Present Illness - Reason for Consult Consult date: 07/01/21 end stage renal disease - History of Present Illness This is a 70-year-old man who was seen in outpatient clinic for CKD stage V and was noted to be short of breath and fluid overloaded. He was subsequently advised to present to the emergency department for initiation of dialysis and access placement. Nephrology was consulted for dialysis management. He notes shortness of breath, lower extremity edema and hand tremors. He denies chest pain, nausea and vomiting. Medications and Allergies Allergies Allergy/AdvReac Type Severity Reaction Status Date / Time tramadol AdvReac Vomiting Verified 07/01/21 07:05 Home Medications Medication Instructions Recorded Confirmed Last Taken Type NIFEdipine XL [Procardia Xl] 60 mg PO BID #30 tablet 06/16/21 06/30/21 06/28/21 Rx Valsartan [Diovan] 160 mg PO Q12H #30 tablet 06/16/21 06/30/21 06/28/21 Rx carvediloL [Coreg] 12.5 mg PO BID #30 tablet 06/16/21 06/30/21 06/28/21 Rx AtorvaSTATin [Lipitor] 40 mg PO QHS 06/30/21 06/30/21 06/28/21 History Cholecalciferol (Vitamin D3) 2 cap PO QDAY 06/30/21 06/30/21 06/28/21 History [Vitamin D3 5,000 UNIT] Cyanocobalamin (Vitamin B-12) 500 mcg SL QDAY 06/30/21 06/30/21 06/28/21 History [Vitamin B-12] Doxazosin [Cardura] 4 mg PO QDAY 06/30/21 06/30/21 06/28/21 History Magnesium 250 mg PO QDAY 06/30/21 06/30/21 06/28/21 History Thiamine HCl [Vitamin B-1] 250 mg PO QDAY 06/30/21 06/30/21 06/28/21 History Torsemide [Demadex] 100 mg PO BID 06/30/21 06/30/21 06/28/21 History Turmeric Root Extract [Turmeric 500 mg PO QDAY 06/30/21 06/30/21 06/28/21 History Curcumin] allopurinoL [Zyloprim] 100 mg PO QDAY 06/30/21 06/30/21 06/28/21 History predniSONE [Deltasone] 40 mg PO QDAY 06/30/21 06/30/21 06/28/21 History Active Meds: Active Medications Acetaminophen (Acetaminophen 325 Mg Tab) 650 mg PO Q4H PRN PRN Reason: Pain MILD(1-3)/Fever >100.5/TAVERAS Carvedilol (Carvedilol 12.5 Mg Tab) 12.5 mg PO BID [facility] Last Admin: 07/01/21 09:34 Dose: 12.5 mg Documented by: Famotidine (Famotidine 10 Mg Tab) 10 mg PO BID [facility] Last Admin: 07/01/21 09:34 Dose: 10 mg Documented by: Hydralazine HCl (Hydralazine 25 Mg Tab) 50 mg PO Q8H [facility] Last Admin: 07/01/21 09:33 Dose: 50 mg Documented by: Hydralazine HCl (Hydralazine 20 Mg/1 Ml Inj) 10 mg IV Q3H PRN PRN Reason: Blood Pressure Last Admin: 06/30/21 02:13 Dose: 10 mg Documented by: Hydromorphone HCl (Hydromorphone 1 Mg/1 Ml Inj) 0.5 mg IV Q3H PRN PRN Reason: Pain , Severe (7-10) Sodium Chloride (Nacl 0.9%) 100 mls @ 999 mls/hr IV EM PRN PRN Reason: Hypotension Metoclopramide HCl (Metoclopramide 10 Mg/2 Ml Inj) 2.5 mg IV Q6H PRN PRN Reason: Nausea And Vomiting Multivitamins/Minerals (Calcium Carb/Vit D3/Minerals 600 Mg/800 Units Tab) 1 each PO BID [facility] Last Admin: 07/01/21 09:34 Dose: 1 each Documented by: Ondansetron HCl (Ondansetron 4 Mg/2 Ml Inj) 4 mg IV Q8H PRN PRN Reason: Nausea And Vomiting Oxycodone/Acetaminophen (Oxycodone /Acetaminophen 5-325mg Tab) 1 tab PO Q6H PRN PRN Reason: Pain, Moderate (4-6) Last Admin: 07/01/21 00:10 Dose: 1 tab Documented by: Prednisone (Prednisone 10 Mg Tab) 30 mg PO QDAY [facility] Last Admin: 07/01/21 10:50 Dose: 30 mg Documented by: Sodium Chloride (Sodium Chloride 0.9% 10 Ml Flush Syringe) 10 ml IV BID [facility] Last Admin: 07/01/21 09:36 Dose: Not Given Documented by: Sodium Chloride (Sodium Chloride 0.9% 10 Ml Flush Syringe) 10 ml IV PRN PRN PRN Reason: LINE FLUSH Valsartan (Valsartan 160mg Tab) 160 mg PO BID [facility] Last Admin: 07/01/21 09:34 Dose: 160 mg Documented by: Review of Systems Constitutional: no fever, no chills Ears, nose, mouth and throat: no nasal congestion, no nasal discharge Cardiovascular: shortness of breath, no chest pain Respiratory: shortness of breath, no cough Gastrointestinal: no nausea, no vomiting Genitourinary Male: no dysuria Musculoskeletal: no muscle weakness, no muscle cramps Integumentary: no rash, no pruritis Neurological: no paralysis, no weakness Psychiatric: no anxiety, no paranoia Endocrine: no polydipsia, no polyuria Hematologic/Lymphatic: no easy bruising, no easy bleeding Exam - Vital Signs Vital signs: Vital Signs Temp Pulse Resp BP Pulse Ox 97.9 F 80 22 162/92 98 06/29/21 15:34 06/29/21 15:34 06/29/21 15:34 06/29/21 15:34 06/29/21 15:34 - Physical Exam Narrative exam: General: No acute distress HEENT: Oral mucosa moist Neck: Supple, no JVD Chest: Clear to auscultation bilaterally Heart: RRR, S1 and S2, no pericardial rub Abdomen: Soft, nontender, no renal bruit Extremity: No peripheral cyanosis, bilateral lower extremity edema Neurological: Alert, awake, no asterixis Dermatology: No skin rash Psych: No agitation Musculoskeletal: No joint effusion Results - Lab Results 07/01/21 04:29 07/01/21 04:29 Most recent lab results Calcium 7.4 mg/dL (8.4-10.2) L 07/01/21 04:29 Phosphorus 5.80 mg/dL (2.5-4.5) H 07/01/21 04:29 Magnesium 1.70 mg/dL (1.7-2.3) 07/01/21 04:29 Assessment and Plan Assessment - End-stage renal disease on hemodialysis - Hypertension - Anemia of ESRD - Hyperparathyroidism - Hyperphosphatemia Recommendations - Started HD 06/30, plan for next session tomorrow - Monitor labs and volume status daily and assess need for additional dialysis session - Continue home antihypertensives - Hold antihypertensives on hemodialysis days for systolics less than 160 - Epogen with HD - Hectorol with HD - Start calcium acetate - ESRD diet with 1.4 g/kg per day protein - Renally dose medication for creatinine clearance less than 15 cc/min - CM to assist with placement
[2021-07-01] MEDS: CALCIUM ACETATE 667 MG CAP PO SCH (22:04)
[2021-07-02] MEDS: hydrALAZINE 25 MG TAB PO SCH ×3 (03:30→18:08)
[2021-07-02 05:54] LABS: Basophils % (Auto) 0.3 % (0.0-1.8); Eosinophils % (Auto) 0.4 % (0.0-4.3); Hemoglobin 8.4 gm/dl (11.8-15.2); Lymphocytes # (Auto) 1.1 K/mm3 (1.2-5.4); Lymphocytes % (Auto) 14.8 % (13.4-35.0); Mean Corpuscular HGB Conc 33 % (32-34); Mean Corpuscular Volume 83 fl (84-94); Monocytes # (Auto) 0.8 K/mm3 (0.0-0.8); Monocytes % (Auto) 10.4 % (0.0-7.3); Platelet Count 122 K/mm3 (140-440); Red Blood Count 3.12 M/mm3 (3.65-5.03); Red Cell Distribution Width 16.8 % (13.2-15.2)
[2021-07-02] MEDS: oxyCODONE /ACETAMINOPHEN 5-325MG TAB PO PRN ×2 (06:02→21:47)
[2021-07-02 06:08] LABS: Calcium 6.6 mg/dL (8.4-10.2)
[2021-07-02] MEDS: CALCIUM ACETATE 667 MG CAP PO SCH ×3 (08:07→21:42)
[2021-07-02] MEDS: CALCIUM CARB/VIT D3/MINERALS 600 MG/800 UNITS TAB PO SCH ×2 (10:08→21:43)
[2021-07-02] MEDS: carvediloL 12.5 MG TAB PO SCH ×2 (10:09→21:42)
[2021-07-02] MEDS: VALSARTAN 160MG TAB PO SCH ×2 (10:10→21:42)
--- NOTE | 2021-07-02 13:23 | Progress Note ---
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 #Hypertensive emergency-resolved #Volume overload/hypervolemia-resolved -Patient initiated on valsartan 160 mg daily, carvedilol 12.5 mg twice daily, p.o. hydralazine 50 mg every 8 hours, and IV hydralazine 10 mg every 3 hours as needed -Blood pressure goal <140/80 -Currently controlled with the initiation of hemodialysis -continue to monitor #Newly diagnosed ESRD on hemodialysis -Vas-Cath placed by [facility] (06/30/2021) -Nephrology on board; appreciate recs. Initiated hemodialysis on 06/30/2021. Repeat dialysis today. -Renally dose medications. Avoid nephrotoxic drugs. -Continue renal diet. -Continue to monitor #Recurrent gout -Unable to utilize colchicine or allopurinol given ESRD -Initiating p.o. prednisone 30 mg for symptomatic relief. Will discuss with nephrology possible options for urate lowering medications given ESRD. -Continue to monitor #Acute hypoxic respiratory failure-resolved -Patient initially on 2 L nasal cannula -Likely secondary to hypertensive emergency and need for emergent dialysis -continue to monitor #Hyperkalemia-resolved #Hypocalcemia-resolved -Potassium 5.2; treated with Kayexalate, calcium gluconate, and sodium bicarbonate in the ED -Calcium repleted -Should be corrected with hemodialysis. Continue to monitor #Anemia of chronic disease -Hemoglobin 8.6 -Transfuse if hemoglobin less than 7 or patient becomes symptomatic -We will likely benefit from initiation of Epogen during hemodialysis -Continue to monitor #DVT prophylaxis -Continue subcutaneous heparin 5000 units every 8 hours #Discharge planning -Social work and case management currently working to obtain hemodialysis facility -Patient is self-pay and needs to initiate Medicaid/Medicare application. Disposition Plan: Continue medical management. Pending outpatient hemodialysis placement. Total Time Spent with Patient (Minutes): 35 History Interval history: Patient underwent hemodialysis (day 2 of 3 of initiation). Patient tolerated procedure well. No acute events over night. The patient denies fevers, chills, nausea, vomiting, abdominal pain, chest pain/pressure, shortness of breath, urinary symptoms, weakness, or confusion. Hospitalist Physical - Constitutional Vitals: Temp Pulse Resp BP Pulse Ox 98.8 F 70 20 158/80 97 07/02/21 11:21 07/02/21 11:21 07/02/21 11:21 07/02/21 11:21 07/02/21 11:21 General appearance: Present: no acute distress, well-nourished, obese - EENT Eyes: Present: PERRL, EOM intact ENT: hearing intact, clear oral mucosa, dentition normal - Neck Neck: Present: supple, normal ROM - Respiratory Respiratory effort: normal Details: Vas-Cath in upper right chest. Skin intact without erythema, purulence, or skin breakdown. - Cardiovascular Rhythm: regular Heart Sounds: Present: S1 & S2 - Extremities Extremities: no ischemia, pulses intact, pulses symmetrical, No edema, normal temperature, normal color Peripheral Pulses: within normal limits - Abdominal General gastrointestinal: soft, non-tender, non-distended, normal bowel sounds - Integumentary Integumentary: Present: clear, warm, dry - Psychiatric Psychiatric: appropriate mood/affect, intact judgment & insight, memory intact, cooperative - Neurologic Neurologic: CNII-XII intact, moves all extremities - Allied Health Allied health notes reviewed: nursing HEART Score - HEART Score Age: > 65 Risk factors: > 3 risk factors or hx of atherosclerotic disease Troponin: 1-3x normal limit - Critical Actions Critical Actions: 4-6 pts:12-16.6% risk of adverse cardiac event. Should be admitted Results - Labs CBC & Chem 7: 07/02/21 04:29 07/02/21 04:29 Labs: Laboratory Last Values WBC 7.4 K/mm3 (4.5-11.0) 07/02/21 04:29 RBC 3.12 M/mm3 (3.65-5.03) L 07/02/21 04:29 Hgb 8.4 gm/dl (11.8-15.2) L 07/02/21 04:29 Hct 26.0 % (35.5-45.6) L 07/02/21 04:29 MCV 83 fl (84-94) L 07/02/21 04:29 MCH 27 pg (28-32) L 07/02/21 04:29 MCHC 33 % (32-34) 07/02/21 04:29 RDW 16.8 % (13.2-15.2) H 07/02/21 04:29 Plt Count 122 K/mm3 (140-440) L 07/02/21 04:29 Lymph % (Auto) 14.8 % (13.4-35.0) 07/02/21 04:29 Norman % (Auto) 10.4 % (0.0-7.3) H 07/02/21 04:29 Eos % (Auto) 0.4 % (0.0-4.3) 07/02/21 04:29 Baso % (Auto) 0.3 % (0.0-1.8) 07/02/21 04:29 Lymph # (Auto) 1.1 K/mm3 (1.2-5.4) L 07/02/21 04:29 Norman # (Auto) 0.8 K/mm3 (0.0-0.8) 07/02/21 04:29 Eos # (Auto) 0.0 K/mm3 (0.0-0.4) 07/02/21 04:29 Baso # (Auto) 0.0 K/mm3 (0.0-0.1) 07/02/21 04:29 Seg Neutrophils % 74.1 % (40.0-70.0) H 07/02/21 04:29 Seg Neutrophils # 5.5 K/mm3 (1.8-7.7) 07/02/21 04:29 PT 15.6 Sec. (12.2-14.9) H 07/01/21 04:29 INR 1.12 (0.87-1.13) 07/01/21 04:29 APTT 29.7 Sec. (24.2-36.6) 06/29/21 Unknown Sodium 141 mmol/L (137-145) 07/02/21 04:29 Potassium 4.6 mmol/L (3.6-5.0) 07/02/21 04:29 Chloride 102.2 mmol/L (98-107) 07/02/21 04:29 Carbon Dioxide 23 mmol/L (22-30) 07/02/21 04:29 Anion Gap 20 mmol/L 07/02/21 04:29 BUN 69 mg/dL (9-20) H 07/02/21 04:29 Creatinine 9.9 mg/dL (0.8-1.3) H 07/02/21 04:29 Estimated GFR 6 ml/min 07/02/21 04:29 BUN/Creatinine Ratio 7 % 07/02/21 04:29 Glucose 150 mg/dL (75-100) H 07/02/21 04:29 Calcium 6.6 mg/dL (8.4-10.2) L 07/02/21 04:29 Phosphorus 4.80 mg/dL (2.5-4.5) H 07/02/21 04:29 Magnesium 1.80 mg/dL (1.7-2.3) 07/02/21 04:29 Total Bilirubin 0.40 mg/dL (0.1-1.2) 07/01/21 04:29 AST 9 units/L (5-40) 07/01/21 04:29 ALT 7 units/L (7-56) 07/01/21 04:29 Alkaline Phosphatase 63 units/L (35-129) 07/01/21 04:29 Total Protein 6.2 g/dL (6.3-8.2) L 07/01/21 04:29 Albumin 3.6 g/dL (3.9-5) L 07/01/21 04:29 Albumin/Globulin Ratio 1.4 % 07/01/21 04:29 PTH Intact 335.8 pg/mL (15-65) H 06/30/21 16:06 Nasal Screen MRSA (PCR) Negative (Negative) 06/30/21 17:36 Hepatitis A IgM Ab Non-reactive (NonReactive) 06/30/21 16:06 Hep Bs Antigen Nonreactive (Negative) 06/30/21 16:06 Hep B Core IgM Ab Non-reactive (NonReactive) 06/30/21 16:06 Hepatitis C Antibody Non-reactive (NonReactive) 06/30/21 16:06 Garcia/IV: Voiding Method Urinal Active Medications - Current Medications Current Medications: Generic Name Dose Route Start Last Admin Trade Name Freq PRN Reason Stop Dose Admin Acetaminophen 650 mg 06/30/21 01:53 Acetaminophen 325 Mg Tab PO Q4H PRN Pain MILD(1-3)/Fever >100.5/TAVERAS Calcium Acetate 667 mg 07/01/21 20:00 07/01/21 22:04 Calcium Acetate 667 Mg Cap PO 667 mg TID MELLISA Administration Carvedilol 12.5 mg 06/30/21 02:00 07/01/21 22:04 Carvedilol 12.5 Mg Tab PO 12.5 mg BID MELLISA Administration Famotidine 10 mg 06/30/21 10:00 07/01/21 22:04 Famotidine 10 Mg Tab PO 10 mg BID MELLISA Administration Hydralazine HCl 50 mg 06/30/21 02:00 07/02/21 03:30 Hydralazine 25 Mg Tab PO 50 mg Q8H MELLISA Administration Hydralazine HCl 10 mg 06/30/21 02:00 06/30/21 02:13 Hydralazine 20 Mg/1 Ml Inj IV 10 mg Q3H PRN Administration Blood Pressure Hydromorphone HCl 0.5 mg 06/30/21 01:53 Hydromorphone 1 Mg/1 Ml Inj IV Q3H PRN Pain , Severe (7-10) Sodium Chloride 100 mls @ 999 mls/hr 06/30/21 10:00 Nacl 0.9% IV EM PRN Hypotension Metoclopramide HCl 2.5 mg 06/30/21 02:03 Metoclopramide 10 Mg/2 Ml Inj IV Q6H PRN Nausea And Vomiting Multivitamins/Minerals 1 each 06/30/21 10:00 07/01/21 22:04 Calcium Carb/Vit D3/Minerals 600 Mg/800 Units Tab PO 1 each BID MELLISA Administration Ondansetron HCl 4 mg 06/30/21 01:53 Ondansetron 4 Mg/2 Ml Inj IV Q8H PRN Nausea And Vomiting Oxycodone/Acetaminophen 1 tab 06/30/21 01:53 07/02/21 06:02 Oxycodone /Acetaminophen 5-325mg Tab PO 1 tab Q6H PRN Administration Pain, Moderate (4-6) Prednisone 30 mg 07/01/21 10:00 07/01/21 10:50 Prednisone 10 Mg Tab PO 30 mg QDAY MELLISA Administration Sodium Chloride 10 ml 06/30/21 10:00 07/01/21 22:05 Sodium Chloride 0.9% 10 Ml Flush Syringe IV 10 ml BID MELLISA Administration Sodium Chloride 10 ml 06/30/21 01:53 Sodium Chloride 0.9% 10 Ml Flush Syringe IV PRN PRN LINE FLUSH Valsartan 160 mg 06/30/21 06:35 07/01/21 22:04 Valsartan 160mg Tab PO 160 mg BID MELLISA Administration Nutrition/Malnutrition Assess - Dietary Evaluation Nutrition/Malnutrition Findings: Nutrition Notes Start: 07/01/21 11:55 Freq: Status: Active Protocol: Document 07/01/21 11:55 MARIA ALEJANDRA (Rec: 07/01/21 12:14 MARIA ALEJANDRA [id number]) Nutrition Notes Need for Assessment generated from: gyro mechanic,MST Initial or Follow up Assessment Current Diagnosis CKD (stage V CKD),Hypertension Other Pertinent Diagnosis Lower extremities swelling, Anemia, w/Hemodialysis. Current Diet Renal Diet (since D 06/30). Labs/Tests 07/01: BUN 63, Cr 8.6, Glu 117 , Ca 7.4, Phos 5.8, T pro 6.2, Alb 3.6. Pertinent Medications 07/01: Nutritionally unremarkable. Height 6 ft Weight 125.5 kg [place]herty Body Weight (kg) 80.90 BMI 37.5 Weight Status Obese Percent of energy/protein needs met: Prescribed Renal Diet provides for energy/protein needs (2, 072 Kcal/77 g) during LOS. Burn Absent Trauma Absent GI Symptoms None Food Allergy No Skin Integrity/Comment Clear, warm, dry. Minimum of two criteria No physical signs of malnutrition #1 Nutrition Diagnosis No nutrition diagnosis at this time Comments: Pt shows no sign of Malnutrition risk with the information available at the time form Progress Notes and ADL Notes. Is patient on ventilator? No Is Patient Ambulatory and/or Out of Bed Yes REE-([facility]-ambulatory/OOB) [ 2681.900 NUTR.MSJOOB] Kcal/Kg value to use for calculation 17 Approximate Energy Requirements Using 2134 kcal/Kg Calculation Used for Recommendations Kcal/kg Additional Notes Protein: 0.8-1.0 g/Kg/Kcal; 65 -81 g/day; 260-324 Kcal/day ( from IBW). Fluids: 1.0 ml/Kcal/day, or as per MD. Nutrition Intervention Change Diet Order: Continue Renal Diet. Goal #1 Maintain body weight within +/ -3% of current BWt during LOS. Goal #2 Reach and maintain acceptable chemistry lab values during LOS. Follow-Up By: 07/07/21 Additional Comments Continue monitoring acceptance of foods, %PO intake of meals , Hydration, and BM.
[2021-07-02] MEDS: hydrALAZINE 20 MG/1 ML INJ IV PRN (17:13)
[2021-07-02] MEDS: predniSONE 10 MG TAB PO SCH (18:10)
[2021-07-02] MEDS: FAMOTIDINE 10 MG TAB PO SCH ×2 (18:10→21:41)
[2021-07-03] MEDS: hydrALAZINE 25 MG TAB PO SCH ×3 (04:54→21:18)
[2021-07-03 05:21] LABS: Basophils % (Auto) 0.5 % (0.0-1.8); Eosinophils # (Auto) 0.2 K/mm3 (0.0-0.4); Eosinophils % (Auto) 2.9 % (0.0-4.3); Hematocrit 26.6 % (35.5-45.6); Hemoglobin 8.6 gm/dl (11.8-15.2); Lymphocytes # (Auto) 1.7 K/mm3 (1.2-5.4); Lymphocytes % (Auto) 22.2 % (13.4-35.0); Mean Corpuscular HGB Conc 32 % (32-34); Mean Corpuscular Volume 84 fl (84-94); Monocytes # (Auto) 0.9 K/mm3 (0.0-0.8); Monocytes % (Auto) 12.2 % (0.0-7.3); Platelet Count 134 K/mm3 (140-440); Red Blood Count 3.18 M/mm3 (3.65-5.03); Red Cell Distribution Width 17.3 % (13.2-15.2)
[2021-07-03 05:41] LABS: Calcium 6.8 mg/dL (8.4-10.2)
[2021-07-03] MEDS: CALCIUM ACETATE 667 MG CAP PO SCH ×3 (08:00→21:17)
[2021-07-03] MEDS: CALCITRIOL 0.5 MCG CAP PO SCH (10:25)
[2021-07-03] MEDS: CALCIUM CARB/VIT D3/MINERALS 600 MG/800 UNITS TAB PO SCH ×2 (10:25→21:17)
[2021-07-03] MEDS: carvediloL 12.5 MG TAB PO SCH ×2 (10:25→21:17)
[2021-07-03] MEDS: VALSARTAN 160MG TAB PO SCH ×2 (10:25→21:17)
[2021-07-03] MEDS: predniSONE 10 MG TAB PO SCH (10:25)
[2021-07-03] MEDS: FAMOTIDINE 10 MG TAB PO SCH ×2 (10:25→21:18)
[2021-07-03] MEDS ORDERED: LIDOCAINE 5% OINTMENT 35 GM TP ONE (12:00)
--- NOTE | 2021-07-03 12:52 | Progress Note ---
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 #Hypertensive emergency-resolved #Volume overload/hypervolemia-resolved -Patient initiated on valsartan 160 mg daily, carvedilol 12.5 mg twice daily, p.o. hydralazine 50 mg every 8 hours, and IV hydralazine 10 mg every 3 hours as needed -Blood pressure goal <140/80 -Currently controlled with the initiation of hemodialysis -continue to monitor #Newly diagnosed ESRD on hemodialysis -Vas-Cath placed by [facility] (06/30/2021) -Nephrology on board; appreciate recs. Initiated hemodialysis on 06/30/2021. Repeat dialysis today. -Renally dose medications. Avoid nephrotoxic drugs. -Continue renal diet. -Continue to monitor #Recurrent gout-stable -Unable to utilize colchicine or allopurinol given ESRD -Initiating p.o. prednisone 30 mg for symptomatic relief. Will discuss with nephrology possible options for urate lowering medications given ESRD. -Continue to monitor #Acute hypoxic respiratory failure-resolved -Patient initially on 2 L nasal cannula -Likely secondary to hypertensive emergency and need for emergent dialysis -continue to monitor #Hyperkalemia-resolved #Hypocalcemia-resolved -Potassium 5.2; treated with Kayexalate, calcium gluconate, and sodium bicarbonate in the ED -Calcium repleted -Should be corrected with hemodialysis. Continue to monitor #Anemia of chronic disease -Hemoglobin 8.6 -Transfuse if hemoglobin less than 7 or patient becomes symptomatic -We will likely benefit from initiation of Epogen during hemodialysis -Continue to monitor #DVT prophylaxis -Continue subcutaneous heparin 5000 units every 8 hours #Discharge planning -Social work and case management currently working to obtain hemodialysis facility -Patient is self-pay and needs to initiate Medicaid/Medicare application. -Patient is medically ready for discharge. Disposition Plan: Pending hemodialysis placement. Medically ready for discharge. Total Time Spent with Patient (Minutes): 30 History Interval history: No acute events over night. The patient denies fevers, chills, nausea, vomiting, abdominal pain, chest pain/pressure, shortness of breath, urinary symptoms, weakness, or confusion. Hospitalist Physical - Constitutional Vitals: Temp Pulse Resp BP Pulse Ox 98.8 F 82 20 153/82 97 07/03/21 09:06 07/03/21 09:06 07/03/21 09:06 07/03/21 09:06 07/03/21 09:06 General appearance: Present: no acute distress, well-nourished, obese - EENT Eyes: Present: PERRL, EOM intact ENT: hearing intact, clear oral mucosa, dentition normal - Neck Neck: Present: supple, normal ROM Details: Vas-Cath in upper right chest. No purulence, erythema, or skin breakdown present. Appropriate tenderness at site given recent insertion. - Respiratory Respiratory effort: normal - Cardiovascular Rhythm: regular Heart Sounds: Present: S1 & S2 - Extremities Extremities: no ischemia, pulses intact, pulses symmetrical, normal temperature, normal color Extremity abnormal: edema, tenderness (Tenderness of the left ankle with mild e kacie) Peripheral Pulses: within normal limits - Abdominal General gastrointestinal: soft, non-tender, non-distended, normal bowel sounds - Integumentary Integumentary: Present: clear, warm, dry - Psychiatric Psychiatric: appropriate mood/affect, intact judgment & insight, memory intact, cooperative - Neurologic Neurologic: CNII-XII intact - Allied Health Allied health notes reviewed: nursing HEART Score - HEART Score Age: > 65 Risk factors: > 3 risk factors or hx of atherosclerotic disease Troponin: 1-3x normal limit - Critical Actions Critical Actions: 4-6 pts:12-16.6% risk of adverse cardiac event. Should be admitted Results - Labs CBC & Chem 7: 07/03/21 04:11 07/03/21 04:11 Labs: Laboratory Last Values WBC 7.6 K/mm3 (4.5-11.0) 07/03/21 04:11 RBC 3.18 M/mm3 (3.65-5.03) L 07/03/21 04:11 Hgb 8.6 gm/dl (11.8-15.2) L 07/03/21 04:11 Hct 26.6 % (35.5-45.6) L 07/03/21 04:11 MCV 84 fl (84-94) 07/03/21 04:11 MCH 27 pg (28-32) L 07/03/21 04:11 MCHC 32 % (32-34) 07/03/21 04:11 RDW 17.3 % (13.2-15.2) H 07/03/21 04:11 Plt Count 134 K/mm3 (140-440) L 07/03/21 04:11 Lymph % (Auto) 22.2 % (13.4-35.0) 07/03/21 04:11 Stanton % (Auto) 12.2 % (0.0-7.3) H 07/03/21 04:11 Eos % (Auto) 2.9 % (0.0-4.3) 07/03/21 04:11 Baso % (Auto) 0.5 % (0.0-1.8) 07/03/21 04:11 Lymph # (Auto) 1.7 K/mm3 (1.2-5.4) 07/03/21 04:11 Stanton # (Auto) 0.9 K/mm3 (0.0-0.8) H 07/03/21 04:11 Eos # (Auto) 0.2 K/mm3 (0.0-0.4) 07/03/21 04:11 Baso # (Auto) 0.0 K/mm3 (0.0-0.1) 07/03/21 04:11 Seg Neutrophils % 62.2 % (40.0-70.0) 07/03/21 04:11 Seg Neutrophils # 4.7 K/mm3 (1.8-7.7) 07/03/21 04:11 PT 15.6 Sec. (12.2-14.9) H 07/01/21 04:29 INR 1.12 (0.87-1.13) 07/01/21 04:29 APTT 29.7 Sec. (24.2-36.6) 06/29/21 Unknown Sodium 142 mmol/L (137-145) 07/03/21 04:11 Potassium 4.2 mmol/L (3.6-5.0) 07/03/21 04:11 Chloride 103.2 mmol/L (98-107) 07/03/21 04:11 Carbon Dioxide 26 mmol/L (22-30) 07/03/21 04:11 Anion Gap 17 mmol/L 07/03/21 04:11 BUN 43 mg/dL (9-20) H 07/03/21 04:11 Creatinine 7.1 mg/dL (0.8-1.3) H 07/03/21 04:11 Estimated GFR 9 ml/min 07/03/21 04:11 BUN/Creatinine Ratio 6 % 07/03/21 04:11 Glucose 126 mg/dL (75-100) H 07/03/21 04:11 Calcium 6.8 mg/dL (8.4-10.2) L 07/03/21 04:11 Phosphorus 4.30 mg/dL (2.5-4.5) 07/03/21 04:11 Magnesium 1.70 mg/dL (1.7-2.3) 07/03/21 04:11 Total Bilirubin 0.40 mg/dL (0.1-1.2) 07/01/21 04:29 AST 9 units/L (5-40) 07/01/21 04:29 ALT 7 units/L (7-56) 07/01/21 04:29 Alkaline Phosphatase 63 units/L (35-129) 07/01/21 04:29 Total Protein 6.2 g/dL (6.3-8.2) L 07/01/21 04:29 Albumin 3.6 g/dL (3.9-5) L 07/01/21 04:29 Albumin/Globulin Ratio 1.4 % 07/01/21 04:29 PTH Intact 335.8 pg/mL (15-65) H 06/30/21 16:06 Nasal Screen MRSA (PCR) Negative (Negative) 06/30/21 17:36 Coronavirus (PCR) Negative (Negative) 07/02/21 Unknown Hepatitis A IgM Ab Non-reactive (NonReactive) 06/30/21 16:06 Hep Bs Antigen Nonreactive (Negative) 06/30/21 16:06 Hep B Core IgM Ab Non-reactive (NonReactive) 06/30/21 16:06 Hepatitis C Antibody Non-reactive (NonReactive) 06/30/21 16:06 Garcia/IV: Voiding Method Toilet Active Medications - Current Medications Current Medications: Generic Name Dose Route Start Last Admin Trade Name Freq PRN Reason Stop Dose Admin Acetaminophen 650 mg 06/30/21 01:53 Acetaminophen 325 Mg Tab PO Q4H PRN Pain MILD(1-3)/Fever >100.5/TAVERAS Calcitriol 0.5 mcg 07/03/21 10:00 07/03/21 10:25 Calcitriol 0.5 Mcg Cap PO 0.5 mcg QDAY MELLISA Administration Calcium Acetate 667 mg 07/01/21 20:00 07/02/21 21:42 Calcium Acetate 667 Mg Cap PO 667 mg TID MELLISA Administration Carvedilol 12.5 mg 06/30/21 02:00 07/03/21 10:25 Carvedilol 12.5 Mg Tab PO 12.5 mg BID MELLISA Administration Famotidine 10 mg 06/30/21 10:00 07/03/21 10:25 Famotidine 10 Mg Tab PO 10 mg BID MELLISA Administration Hydralazine HCl 50 mg 06/30/21 02:00 07/03/21 10:26 Hydralazine 25 Mg Tab PO 50 mg Q8H MELLISA Administration Hydralazine HCl 10 mg 06/30/21 02:00 07/02/21 17:13 Hydralazine 20 Mg/1 Ml Inj IV 10 mg Q3H PRN Administration Blood Pressure Hydromorphone HCl 0.5 mg 06/30/21 01:53 Hydromorphone 1 Mg/1 Ml Inj IV Q3H PRN Pain , Severe (7-10) Sodium Chloride 100 mls @ 999 mls/hr 06/30/21 10:00 Nacl 0.9% IV EM PRN Hypotension Metoclopramide HCl 2.5 mg 06/30/21 02:03 Metoclopramide 10 Mg/2 Ml Inj IV Q6H PRN Nausea And Vomiting Multivitamins/Minerals 1 each 06/30/21 10:00 07/03/21 10:25 Calcium Carb/Vit D3/Minerals 600 Mg/800 Units Tab PO 1 each BID MELLISA Administration Ondansetron HCl 4 mg 06/30/21 01:53 Ondansetron 4 Mg/2 Ml Inj IV Q8H PRN Nausea And Vomiting Oxycodone/Acetaminophen 1 tab 06/30/21 01:53 07/02/21 21:47 Oxycodone /Acetaminophen 5-325mg Tab PO 1 tab Q6H PRN Administration Pain, Moderate (4-6) Prednisone 30 mg 07/01/21 10:00 07/03/21 10:25 Prednisone 10 Mg Tab PO 07/05/21 10:00 30 mg QDAY MELLISA Administration Sodium Chloride 10 ml 06/30/21 10:00 07/03/21 10:26 Sodium Chloride 0.9% 10 Ml Flush Syringe IV 10 ml BID MELLISA Administration Sodium Chloride 10 ml 06/30/21 01:53 Sodium Chloride 0.9% 10 Ml Flush Syringe IV PRN PRN LINE FLUSH Valsartan 160 mg 06/30/21 06:35 07/03/21 10:25 Valsartan 160mg Tab PO 160 mg BID MELLISA Administration Nutrition/Malnutrition Assess - Dietary Evaluation Nutrition/Malnutrition Findings: Nutrition Notes Start: 07/01/21 11:55 Freq: Status: Active Protocol: Document 07/01/21 11:55 MARIA ALEJANDRA (Rec: 07/01/21 12:14 MARIA ALEJANDRA [id number]) Nutrition Notes Need for Assessment generated from: ornamenter hand,MST Initial or Follow up Assessment Current Diagnosis CKD (stage V CKD),Hypertension Other Pertinent Diagnosis Lower extremities swelling, Anemia, w/Hemodialysis. Current Diet Renal Diet (since D 06/30). Labs/Tests 07/01: BUN 63, Cr 8.6, Glu 117 , Ca 7.4, Phos 5.8, T pro 6.2, Alb 3.6. Pertinent Medications 07/01: Nutritionally unremarkable. Height 6 ft Weight 125.5 kg [place] Body Weight (kg) 80.90 BMI 37.5 Weight Status Obese Percent of energy/protein needs met: Prescribed Renal Diet provides for energy/protein needs (2, 072 Kcal/77 g) during LOS. Burn Absent Trauma Absent GI Symptoms None Food Allergy No Skin Integrity/Comment Clear, warm, dry. Minimum of two criteria No physical signs of malnutrition #1 Nutrition Diagnosis No nutrition diagnosis at this time Comments: Pt shows no sign of Malnutrition risk with the information available at the time form Progress Notes and ADL Notes. Is patient on ventilator? No Is Patient Ambulatory and/or Out of Bed Yes REE-([place]-ambulatory/OOB) [ 2683.900 NUTR.MSJOOB] Kcal/Kg value to use for calculation 17 Approximate Energy Requirements Using 2134 kcal/Kg Calculation Used for Recommendations Kcal/kg Additional Notes Protein: 0.8-1.0 g/Kg/Kcal; 65 -81 g/day; 260-324 Kcal/day ( from IBW). Fluids: 1.0 ml/Kcal/day, or as per MD. Nutrition Intervention Change Diet Order: Continue Renal Diet. Goal #1 Maintain body weight within +/ -3% of current BWt during LOS. Goal #2 Reach and maintain acceptable chemistry lab values during LOS. Follow-Up By: 07/07/21 Additional Comments Continue monitoring acceptance of foods, %PO intake of meals , Hydration, and BM. - Attestation Statement I have reviewed and agreed w/ Malnutrition eval & tx plan: Yes
--- NOTE | 2021-07-03 15:35 | Progress Note ---
Assessment and Plan Assessment - End-stage renal disease on hemodialysis - Hypertension - Anemia of ESRD - Hyperparathyroidism - Hyperphosphatemia Recommendations - Started HD 06/30, plan for next session tomorrow - Monitor labs and volume status daily and assess need for additional dialysis session - Continue home antihypertensives - Hold antihypertensives on hemodialysis days for systolics less than 160 - Continue Calcitriol - Epogen with HD - Continue calcium acetate - ESRD diet with 1.4 g/kg per day protein - Renally dose medication for creatinine clearance less than 15 cc/min - CM to assist with placement Subjective Date of service: 07/03/21 Principal diagnosis: Uremia Interval history: No issues with HD Feels better post dialysis Objective - Exam Narrative Exam: General: No acute distress HEENT: Oral mucosa moist Neck: Supple, no JVD Chest: Clear to auscultation bilaterally Heart: RRR, S1 and S2, no pericardial rub Abdomen: Soft, nontender, no renal bruit Extremity: No peripheral cyanosis, bilateral lower extremity edema Neurological: Alert, awake, + asterixis Dermatology: No skin rash Psych: No agitation Musculoskeletal: No joint effusion - Vital Signs Vital signs: Vital Signs - 12hr 07/03/21 07/03/21 07/03/21 04:23 04:54 08:58 Temperature 98.2 F Pulse Rate 69 69 82 Respiratory 18 Rate Blood Pressure 153/84 153/84 O2 Sat by Pulse 97 100 Oximetry 07/03/21 07/03/21 09:06 12:40 Temperature 98.8 F 99.1 F Pulse Rate 82 74 Respiratory 20 20 Rate Blood Pressure 153/82 166/102 O2 Sat by Pulse 97 96 Oximetry - Lab 07/03/21 04:11 07/03/21 04:11 Most recent lab results Calcium 6.8 mg/dL (8.4-10.2) L 07/03/21 04:11 Phosphorus 4.30 mg/dL (2.5-4.5) 07/03/21 04:11 Magnesium 1.70 mg/dL (1.7-2.3) 07/03/21 04:11 Medications & Allergies - Medications Allergies/Adverse Reactions: Allergies tramadol Adverse Reaction (Verified 07/01/21 07:05) Vomiting Patient states that when he takes tramadol on an empty stomach, it makes him vomit Home Medications: Home Medications Medication Instructions Recorded Confirmed Last Taken Type NIFEdipine XL [Procardia Xl] 60 mg PO BID #30 tablet 06/16/21 06/30/21 06/28/21 Rx Valsartan [Diovan] 160 mg PO Q12H #30 tablet 06/16/21 06/30/21 06/28/21 Rx carvediloL [Coreg] 12.5 mg PO BID #30 tablet 06/16/21 06/30/21 06/28/21 Rx AtorvaSTATin [Lipitor] 40 mg PO QHS 06/30/21 06/30/21 06/28/21 History Cholecalciferol (Vitamin D3) 2 cap PO QDAY 06/30/21 06/30/21 06/28/21 History [Vitamin D3 5,000 UNIT] Cyanocobalamin (Vitamin B-12) 500 mcg SL QDAY 06/30/21 06/30/21 06/28/21 History [Vitamin B-12] Doxazosin [Cardura] 4 mg PO QDAY 06/30/21 06/30/21 06/28/21 History Magnesium 250 mg PO QDAY 06/30/21 06/30/21 06/28/21 History Thiamine HCl [Vitamin B-1] 250 mg PO QDAY 06/30/21 06/30/21 06/28/21 History Torsemide [Demadex] 100 mg PO BID 06/30/21 06/30/21 06/28/21 History Turmeric Root Extract [Turmeric 500 mg PO QDAY 06/30/21 06/30/21 06/28/21 History Curcumin] allopurinoL [Zyloprim] 100 mg PO QDAY 06/30/21 06/30/21 06/28/21 History predniSONE [Deltasone] 40 mg PO QDAY 06/30/21 06/30/21 06/28/21 History Active Medications: Generic Name Dose Route Start Last Admin Trade Name Freq PRN Reason Stop Dose Admin Acetaminophen 650 mg 06/30/21 01:53 Acetaminophen 325 Mg Tab PO Q4H PRN Pain MILD(1-3)/Fever >100.5/TAVERAS Calcitriol 0.5 mcg 07/03/21 10:00 07/03/21 10:25 Calcitriol 0.5 Mcg Cap PO 0.5 mcg QDAY MELLISA Administration Calcium Acetate 667 mg 07/01/21 20:00 07/03/21 08:00 Calcium Acetate 667 Mg Cap PO Not Given TID MELLISA Carvedilol 12.5 mg 06/30/21 02:00 07/03/21 10:25 Carvedilol 12.5 Mg Tab PO 12.5 mg BID MELLISA Administration Famotidine 10 mg 06/30/21 10:00 07/03/21 10:25 Famotidine 10 Mg Tab PO 10 mg BID MELLISA Administration Hydralazine HCl 50 mg 06/30/21 02:00 07/03/21 10:26 Hydralazine 25 Mg Tab PO 50 mg Q8H MELLISA Administration Hydralazine HCl 10 mg 06/30/21 02:00 07/02/21 17:13 Hydralazine 20 Mg/1 Ml Inj IV 10 mg Q3H PRN Administration Blood Pressure Hydromorphone HCl 0.5 mg 06/30/21 01:53 Hydromorphone 1 Mg/1 Ml Inj IV Q3H PRN Pain , Severe (7-10) Sodium Chloride 100 mls @ 999 mls/hr 06/30/21 10:00 Nacl 0.9% IV EM PRN Hypotension Metoclopramide HCl 2.5 mg 06/30/21 02:03 Metoclopramide 10 Mg/2 Ml Inj IV Q6H PRN Nausea And Vomiting Multivitamins/Minerals 1 each 06/30/21 10:00 07/03/21 10:25 Calcium Carb/Vit D3/Minerals 600 Mg/800 Units Tab PO 1 each BID MELLISA Administration Ondansetron HCl 4 mg 06/30/21 01:53 Ondansetron 4 Mg/2 Ml Inj IV Q8H PRN Nausea And Vomiting Oxycodone/Acetaminophen 1 tab 06/30/21 01:53 07/02/21 21:47 Oxycodone /Acetaminophen 5-325mg Tab PO 1 tab Q6H PRN Administration Pain, Moderate (4-6) Prednisone 30 mg 07/01/21 10:00 07/03/21 10:25 Prednisone 10 Mg Tab PO 07/05/21 10:00 30 mg QDAY MELLISA Administration Sodium Chloride 10 ml 06/30/21 10:00 07/03/21 10:26 Sodium Chloride 0.9% 10 Ml Flush Syringe IV 10 ml BID MELLISA Administration Sodium Chloride 10 ml 06/30/21 01:53 Sodium Chloride 0.9% 10 Ml Flush Syringe IV PRN PRN LINE FLUSH Valsartan 160 mg 06/30/21 06:35 07/03/21 10:25 Valsartan 160mg Tab PO 160 mg BID MELLISA Administration
[2021-07-04] MEDS: hydrALAZINE 25 MG TAB PO SCH ×3 (05:44→21:02)
[2021-07-04] MEDS ORDERED: EPOETIN ALFA-EPBX 10,000 UNIT/1 ML VIAL IV PRN (06:00)
[2021-07-04 06:40] LABS: Calcium 6.7 mg/dL (8.4-10.2)
[2021-07-04] MEDS ORDERED: CALCIUM GLUCONATE 2,000 MG in SODIUM CHLORIDE 0.9% 100 ML IV ONE (09:00)
--- NOTE | 2021-07-04 09:33 | Progress Note ---
Assessment and Plan - End-stage renal disease on hemodialysis --HD intiation on Jun 30 - Hypertension - Anemia of ESRD - Secondary hyperparathyroidism Recommendations - Hemodialysis today - UF as tolerated - Continue home antihypertensives; hold antihypertensives on hemodialysis days for systolics less than 160 - Continuen with HDe Calcitriol - Epog - Continue calcium acetate - ESRD diet with 1.4 g/kg per day protein - Renally dose medication for creatinine clearance less than 15 cc/min - Outpatient HD clnic placement in progress - Will need permcath placement prior to discharge Subjective Date of service: 07/04/21 Principal diagnosis: Uremia Interval history: Patient has no complaints today Objective - Vital Signs Vital signs: Vital Signs - 12hr 07/03/21 07/04/21 07/04/21 23:51 04:29 05:44 Temperature 98.4 F 98.4 F Pulse Rate 77 83 85 Respiratory 18 18 Rate Blood Pressure 145/79 164/89 164/89 O2 Sat by Pulse 97 99 Oximetry 07/04/21 08:01 Temperature 98.8 F Pulse Rate 82 Respiratory 18 Rate Blood Pressure 164/85 O2 Sat by Pulse 97 Oximetry - General Appearance General appearance: well-developed, well-nourished EENT: ATNC Respiratory: Present: Clear to Ascultation Cardiology: regular, S1S2 Gastrointestinal: normal Integumentary: no rash, warm and dry Neurologic: alert and oriented x3 Psychiatric: cooperative - Lab 07/03/21 04:11 07/04/21 05:33 Most recent lab results Calcium 6.7 mg/dL (8.4-10.2) L 07/04/21 05:33 Phosphorus 4.30 mg/dL (2.5-4.5) 07/04/21 05:33 Magnesium 1.80 mg/dL (1.7-2.3) 07/04/21 05:33 Medications & Allergies - Medications Allergies/Adverse Reactions: Allergies tramadol Adverse Reaction (Verified 07/01/21 07:05) Vomiting Patient states that when he takes tramadol on an empty stomach, it makes him vomit Home Medications: Home Medications Medication Instructions Recorded Confirmed Last Taken Type NIFEdipine XL [Procardia Xl] 60 mg PO BID #30 tablet 06/16/21 06/30/21 06/28/21 Rx Valsartan [Diovan] 160 mg PO Q12H #30 tablet 06/16/21 06/30/21 06/28/21 Rx carvediloL [Coreg] 12.5 mg PO BID #30 tablet 06/16/21 06/30/21 06/28/21 Rx AtorvaSTATin [Lipitor] 40 mg PO QHS 06/30/21 06/30/21 06/28/21 History Cholecalciferol (Vitamin D3) 2 cap PO QDAY 06/30/21 06/30/21 06/28/21 History [Vitamin D3 5,000 UNIT] Cyanocobalamin (Vitamin B-12) 500 mcg SL QDAY 06/30/21 06/30/21 06/28/21 History [Vitamin B-12] Doxazosin [Cardura] 4 mg PO QDAY 06/30/21 06/30/21 06/28/21 History Magnesium 250 mg PO QDAY 06/30/21 06/30/21 06/28/21 History Thiamine HCl [Vitamin B-1] 250 mg PO QDAY 06/30/21 06/30/21 06/28/21 History Torsemide [Demadex] 100 mg PO BID 06/30/21 06/30/21 06/28/21 History Turmeric Root Extract [Turmeric 500 mg PO QDAY 06/30/21 06/30/21 06/28/21 History Curcumin] allopurinoL [Zyloprim] 100 mg PO QDAY 06/30/21 06/30/21 06/28/21 History predniSONE [Deltasone] 40 mg PO QDAY 06/30/21 06/30/21 06/28/21 History Active Medications: Generic Name Dose Route Start Last Admin Trade Name Artemioq PRN Reason Stop Dose Admin Acetaminophen 650 mg 06/30/21 01:53 Acetaminophen 325 Mg Tab PO Q4H PRN Pain MILD(1-3)/Fever >100.5/TAVERAS Amlodipine Besylate 5 mg 07/04/21 10:00 Amlodipine 5 Mg Tab PO QDAY MELLISA Calcitriol 0.5 mcg 07/03/21 10:00 07/03/21 10:25 Calcitriol 0.5 Mcg Cap PO 0.5 mcg QDAY MELLISA Administration Calcium Acetate 667 mg 07/01/21 20:00 07/03/21 21:17 Calcium Acetate 667 Mg Cap PO 667 mg TID MELLISA Administration Carvedilol 12.5 mg 06/30/21 02:00 07/03/21 21:17 Carvedilol 12.5 Mg Tab PO 12.5 mg BID MELLISA Administration Famotidine 10 mg 06/30/21 10:00 07/03/21 21:18 Famotidine 10 Mg Tab PO 10 mg BID MELLISA Administration Hydralazine HCl 50 mg 06/30/21 02:00 07/04/21 05:44 Hydralazine 25 Mg Tab PO 50 mg Q8H MELLISA Administration Hydralazine HCl 10 mg 06/30/21 02:00 07/02/21 17:13 Hydralazine 20 Mg/1 Ml Inj IV 10 mg Q3H PRN Administration Blood Pressure Hydromorphone HCl 0.5 mg 06/30/21 01:53 Hydromorphone 1 Mg/1 Ml Inj IV Q3H PRN Pain , Severe (7-10) Sodium Chloride 100 mls @ 999 mls/hr 06/30/21 10:00 Nacl 0.9% IV EM PRN Hypotension Metoclopramide HCl 2.5 mg 06/30/21 02:03 Metoclopramide 10 Mg/2 Ml Inj IV Q6H PRN Nausea And Vomiting Multivitamins/Minerals 1 each 06/30/21 10:00 07/03/21 21:17 Calcium Carb/Vit D3/Minerals 600 Mg/800 Units Tab PO 1 each BID MELLISA Administration Ondansetron HCl 4 mg 06/30/21 01:53 Ondansetron 4 Mg/2 Ml Inj IV Q8H PRN Nausea And Vomiting Oxycodone/Acetaminophen 1 tab 06/30/21 01:53 07/02/21 21:47 Oxycodone /Acetaminophen 5-325mg Tab PO 1 tab Q6H PRN Administration Pain, Moderate (4-6) Prednisone 30 mg 07/01/21 10:00 07/03/21 10:25 Prednisone 10 Mg Tab PO 07/05/21 10:00 30 mg QDAY MELLISA Administration Sodium Chloride 10 ml 06/30/21 10:00 07/03/21 21:18 Sodium Chloride 0.9% 10 Ml Flush Syringe IV 10 ml BID MELLISA Administration Sodium Chloride 10 ml 06/30/21 01:53 Sodium Chloride 0.9% 10 Ml Flush Syringe IV PRN PRN LINE FLUSH Valsartan 160 mg 06/30/21 06:35 07/03/21 21:17 Valsartan 160mg Tab PO 160 mg BID MELLISA Administration
[2021-07-04] MEDS: CALCIUM ACETATE 667 MG CAP PO SCH ×3 (10:10→21:00)
[2021-07-04] MEDS: predniSONE 10 MG TAB PO SCH (10:10)
[2021-07-04] MEDS: FAMOTIDINE 10 MG TAB PO SCH ×2 (10:11→21:00)
[2021-07-04] MEDS: CALCIUM CARB/VIT D3/MINERALS 600 MG/800 UNITS TAB PO SCH ×2 (10:11→21:00)
[2021-07-04] MEDS: CALCITRIOL 0.5 MCG CAP PO SCH (10:11)
[2021-07-04 12:04] LABS: Vitamin D, 25-OH, D2 13 ng/mL
--- NOTE | 2021-07-04 12:11 | Event Note ---
Date: 07/04/21 Reviewed nephrology notes. NPO except sips of water after [place] Permcath tomorrow.
--- NOTE | 2021-07-04 12:44 | Discharge Summary ---
Providers - Providers Date of Admission: 06/29/21 19:22 Date of discharge: 07/04/21 Attending physician: SVETA MARCUS MD 06/30/21 01:53 Consult to Physician [CONS] Routine Comment: Consulting Provider: JOSEPH MORAN Physician Instructions: Reason For Exam: esrd 06/30/21 01:57 Consult to Physician [CONS] Routine Comment: Consulting Provider: SARAH LE Physician Instructions: Reason For Exam: Vas cath placement Primary care physician: SOFTWARE SPECIALIST Hospitalization Reason for admission: ESRD needing hemodialysis initiation Condition: Fair Pertinent studies: Reviewed. Procedures: Placement of Vas-Cath by vascular surgery. Hospital course: The patient is a 70-year-old -[place] male with history of longstanding hypertension and end-stage renal disease was sent in by his historian dramatic arts for initiation of dialysis. The patient presented with hypertensive emergency complicated by volume overload and acute hypoxic respiratory failure. Blood pressures were stabilized. Vascular surgery placed the Vas-Cath on 06/30/2021, and the patient followed with hemodialysis. The patient has undergone 2 sessions of hemodialysis while inpatient. Respiratory failure was resolved. Patient was started on amlodipine 5 mg daily for blood pressure control and will likely need titration with his primary care provider versus historian dramatic arts in the outpatient setting. Case management and social work have been working with the patient to apply for Medicaid versus Medicare. A hemodialysis chair has been established for the patient, and the patient is medically cleared for discharge. Patient expressed understanding. Disposition: 01 HOME / SELF CARE / HOMELESS Final Discharge Diagnosis (Prints w/discharge instructions): ESRD on hemodialysis; acute hypoxic respiratory failure; hypertensive emergency; chronic gout; anemia of chronic disease Time spent for discharge: 40 minutes Core Measure Documentation - Palliative Care Palliative Care/ Comfort Measures: Not Applicable - Core Measures Any of the following diagnoses?: none - VTE Discharge Requirements Deep Vein Thrombosis/Pulmonary Embolism Present on Admission: No Has pt received <5 days of overlap therapy or INR<2.0: No (Not indicated) Anticoagulant overlap therapy prescribed at discharge: No Contraindication No Overlap Therapy order at DC: Not Indicated - Acute DE Discharge Requirements Aspirin at discharge: No Reason for no aspirin on DC: Medical contraindication (Not indicated) SHELLY/ARB for LVSD if EF <40%: Not Applicable Reason for no SHELLY/ARB: Renal impairment Beta bran at discharge: No Reason for no beta bran on DC: Medical contraindication (Not indicated) Statin for LDL = or >100 mg/dl on DC: No Reason for no statin on DC: Medical contraindication (Not indicated) Exam - Constitutional Vitals: Temp Pulse Resp BP Pulse Ox 98.8 F 82 18 164/85 97 07/04/21 08:01 07/04/21 08:01 07/04/21 08:01 07/04/21 08:01 07/04/21 08:01 General appearance: Present: no acute distress, well-nourished, obese - EENT Eyes: Present: PERRL, EOM intact ENT: hearing intact, clear oral mucosa, dentition normal - Neck Neck: Present: supple, normal ROM Details: Vas-Cath in upper right chest - Respiratory Respiratory effort: normal - Cardiovascular Rhythm: regular Heart Sounds: Present: S1 & S2 - Extremities Extremities: no ischemia, pulses intact, pulses symmetrical, No edema, normal temperature, normal color Extremity abnormal: tenderness (Mild tenderness of left ankle) Peripheral Pulses: within normal limits - Abdominal General gastrointestinal: Present: soft, non-tender, non-distended, normal bowel sounds Male genitourinary: Present: deferred - Rectal Rectal Exam: deferred - Integumentary Integumentary: Present: clear, warm, dry - Musculoskeletal Musculoskeletal: strength equal bilaterally - Psychiatric Psychiatric: appropriate mood/affect, intact judgment & insight, memory intact, cooperative - Neurologic Neurologic: CNII-XII intact, moves all extremities - Allied Health Allied health notes reviewed: nursing Plan Activity: no restrictions Diet: renal Care Plan Goals: Patient discharging home safely. Assessment: The patient was admitted for initiation of hemodialysis after being declared ESRD. Patient tolerated placement of Vas-Cath in the right upper chest without any complications. The patient has since been undergoing hemodialysis (a total of 2 times while hospitalized). Social work and case management have been working with the patient and his family to obtain Medicare/Medicaid. Patient has secured a hemodialysis chair, and is medically cleared for discharge. Follow up with: KALEB AIKEN MD [Primary Care Provider] - 3-5 Days JOSEPH MORAN MD [Staff Physician] - 7 Days Prescriptions: hydrALAZINE [Apresoline TAB] 50 mg PO Q8H #90 tablet Calcium Carb/Vit D3/Minerals [Caltrate Plus] 1 each PO BID #60 tablet carvediloL [Coreg] 12.5 mg PO BID #60 tablet Valsartan [Diovan] 160 mg PO BID #60 tablet Epoetin Wellington-Epbx 10,000 Unit [Retacrit] 4,000 unit IV EM PRN #2 vial PRN Reason: anemia calcitrioL [Rocaltrol] 0.5 mcg PO QDAY #30 capsule allopurinoL [Zyloprim] 100 mg PO Q72H 11 Days #16 tab
[2021-07-04] MEDS: VALSARTAN 160MG TAB PO SCH ×2 (17:55→21:00)
[2021-07-04] MEDS: carvediloL 12.5 MG TAB PO SCH ×2 (17:55→21:01)
[2021-07-04] MEDS: amLODIPine 5 MG TAB PO SCH (21:03)
[2021-07-05] MEDS: hydrALAZINE 25 MG TAB PO SCH ×2 (02:06→10:22)
[2021-07-05 06:18] LABS: Calcium 7.4 mg/dL (8.4-10.2)
[2021-07-05] MEDS: carvediloL 12.5 MG TAB PO SCH (10:21)
[2021-07-05] MEDS: VALSARTAN 160MG TAB PO SCH (10:21)
[2021-07-05] MEDS: CALCITRIOL 0.5 MCG CAP PO SCH (10:21)
[2021-07-05] MEDS: predniSONE 10 MG TAB PO SCH (10:21)
[2021-07-05] MEDS: amLODIPine 5 MG TAB PO SCH (10:21)
[2021-07-05] MEDS: FAMOTIDINE 10 MG TAB PO SCH (10:21)
[2021-07-05] MEDS: CALCIUM CARB/VIT D3/MINERALS 600 MG/800 UNITS TAB PO SCH (10:21)
[2021-07-05] MEDS: CALCIUM ACETATE 667 MG CAP PO SCH (10:22)
[2021-07-05 12:16] VITALS: BP 190/102
[2021-07-05] MEDS ORDERED: HEPARIN/NS 5000 UNIT/500ML 500 ML IR ONE (12:37)
[2021-07-05] MEDS ORDERED: HEPARIN 10,000 UNITS/10 ML VIAL ONE (12:38)
[2021-07-05] MEDS ORDERED: LIDOCAINE 1%/EPINEPHRINE 1:100,000 VIAL (20 ML) INFILTRATI ONE ×2 (12:38→12:54)
[2021-07-05] MEDS ORDERED: MIDAZOLAM 2 MG/2 ML INJ ONE (12:41)
[2021-07-05] MEDS ORDERED: ceFAZolin/Water 2 GM/20 ML 2 GM/20 ML SYRINGE IV ONE (12:42)
[2021-07-05] MEDS ORDERED: ceFAZolin/STERILE WATER 2 GM/20 ML SYRINGE IV ONE (12:55)
[2021-07-05] MEDS ORDERED: HEPARIN/NS 5000 UNITS/500 ML BAG (CATH LAB ONLY) IR ONE (13:05)
--- NOTE | 2021-07-05 13:16 | Progress Note ---
Assessment and Plan Impression - End-stage renal disease on hemodialysis --HD intiation on Jun 30 --permacath insertion Jul 05 - Hypertension - Anemia of ESRD - Secondary hyperparathyroidism Recommendations - Hemodialysis yesterday, reviewed with dialysis nurse, no issues noted. Plan for HD tomorrow for MWF schedule - UF as tolerated - Continue home antihypertensives; hold antihypertensives on hemodialysis days for systolics less than 160 - Continuen with HD Calcitriol - Epogen prn - Continue calcium acetate - ESRD diet with 1.4 g/kg per day protein - Renally dose medication for creatinine clearance less than 15 cc/min - Outpatient HD clnic placement- appreciate placement at [facility] to start tomorrow if discharged today - Appreciate permacath placement today Subjective Date of service: 07/05/21 Principal diagnosis: Uremia Interval history: Getting permacath at time of rounds Objective - Exam Narrative Exam: Exam deferred as patient in procedure - Vital Signs Vital signs: Vital Signs - 12hr 07/05/21 07/05/21 07/05/21 04:24 04:39 08:57 Temperature 99.1 F 97.3 F L Pulse Rate 77 77 Respiratory 18 18 Rate Blood Pressure 176/98 O2 Sat by Pulse 98 98 Oximetry 07/05/21 10:30 Temperature Pulse Rate Respiratory Rate Blood Pressure 190/102 O2 Sat by Pulse Oximetry - Lab 07/03/21 04:11 07/05/21 04:36 Most recent lab results Calcium 7.4 mg/dL (8.4-10.2) L 07/05/21 04:36 Phosphorus 4.40 mg/dL (2.5-4.5) 07/05/21 04:36 Magnesium 1.70 mg/dL (1.7-2.3) 07/05/21 04:36 Medications & Allergies - Medications Allergies/Adverse Reactions: Allergies tramadol Adverse Reaction (Verified 07/01/21 07:05) Vomiting Patient states that when he takes tramadol on an empty stomach, it makes him vomit Home Medications: Home Medications Medication Instructions Recorded Confirmed Last Taken Type NIFEdipine XL [Procardia Xl] 60 mg PO BID #30 tablet 06/16/21 06/30/21 06/28/21 Rx AtorvaSTATin [Lipitor] 40 mg PO QHS 06/30/21 06/30/21 06/28/21 History Cholecalciferol (Vitamin D3) 2 cap PO QDAY 06/30/21 06/30/21 06/28/21 History [Vitamin D3 5,000 UNIT] Cyanocobalamin (Vitamin B-12) 500 mcg SL QDAY 06/30/21 06/30/21 06/28/21 History [Vitamin B-12] Doxazosin [Cardura] 4 mg PO QDAY 06/30/21 06/30/21 06/28/21 History Calcium Carb/Vit D3/Minerals 1 each PO BID #60 tablet 07/04/21 Unknown Rx [Caltrate Plus] Epoetin Wellington-Epbx 10,000 Unit 4,000 unit IV EM PRN #2 vial 07/04/21 Unknown Rx [Retacrit] Valsartan [Diovan] 160 mg PO BID #60 tablet 07/04/21 Unknown Rx allopurinoL [Zyloprim] 100 mg PO Q72H 11 Days #16 tab 07/04/21 Unknown Rx calcitrioL [Rocaltrol] 0.5 mcg PO QDAY #30 capsule 07/04/21 Unknown Rx carvediloL [Coreg] 12.5 mg PO BID #60 tablet 07/04/21 Unknown Rx hydrALAZINE [Apresoline TAB] 50 mg PO Q8H #90 tablet 07/04/21 Unknown Rx Active Medications: Generic Name Dose Route Start Last Admin Trade Name Freq PRN Reason Stop Dose Admin Acetaminophen 650 mg 06/30/21 01:53 Acetaminophen 325 Mg Tab PO Q4H PRN Pain MILD(1-3)/Fever >100.5/TAVERAS Amlodipine Besylate 5 mg 07/04/21 10:00 07/05/21 10:21 Amlodipine 5 Mg Tab PO 5 mg QDAY MELLISA Administration Calcitriol 0.5 mcg 07/03/21 10:00 07/05/21 10:21 Calcitriol 0.5 Mcg Cap PO 0.5 mcg QDAY MELLISA Administration Calcium Acetate 667 mg 07/01/21 20:00 07/05/21 10: Calcium Acetate 667 Mg Cap PO 667 mg TID MELLISA Administration Carvedilol 12.5 mg 06/30/21 02:00 07/05/21 10:21 Carvedilol 12.5 Mg Tab PO 12.5 mg BID MELLISA Administration Famotidine 10 mg 06/30/21 10:00 07/05/21 10:21 Famotidine 10 Mg Tab PO 10 mg BID MELLISA Administration Hydralazine HCl 50 mg 06/30/21 02:00 07/05/21 10:22 Hydralazine 25 Mg Tab PO 50 mg Q8H MELLISA Administration Hydralazine HCl 10 mg 06/30/21 02:00 07/02/21 17:13 Hydralazine 20 Mg/1 Ml Inj IV 10 mg Q3H PRN Administration Blood Pressure Hydromorphone HCl 0.5 mg 06/30/21 01:53 Hydromorphone 1 Mg/1 Ml Inj IV Q3H PRN Pain , Severe (7-10) Sodium Chloride 100 mls @ 999 mls/hr 06/30/21 10:00 Nacl 0.9% IV EM PRN Hypotension Metoclopramide HCl 2.5 mg 06/30/21 02:03 Metoclopramide 10 Mg/2 Ml Inj IV Q6H PRN Nausea And Vomiting Multivitamins/Minerals 1 each 06/30/21 10:00 07/05/21 10:21 Calcium Carb/Vit D3/Minerals 600 Mg/800 Units Tab PO 1 each BID MELLISA Administration Ondansetron HCl 4 mg 06/30/21 01:53 Ondansetron 4 Mg/2 Ml Inj IV Q8H PRN Nausea And Vomiting Oxycodone/Acetaminophen 1 tab 06/30/21 01:53 07/02/21 21:47 Oxycodone /Acetaminophen 5-325mg Tab PO 1 tab Q6H PRN Administration Pain, Moderate (4-6) Sodium Chloride 10 ml 06/30/21 10:00 07/05/21 10:22 Sodium Chloride 0.9% 10 Ml Flush Syringe IV 10 ml BID MELLISA Administration Sodium Chloride 10 ml 06/30/21 01:53 Sodium Chloride 0.9% 10 Ml Flush Syringe IV PRN PRN LINE FLUSH Valsartan 160 mg 06/30/21 06:35 07/05/21 10:21 Valsartan 160mg Tab PO 160 mg BID MELLISA Administration
[2021-07-05] MEDS ORDERED: ONDANSETRON 4 MG/2 ML INJ ONE (13:20)
[2021-07-05] MEDS ORDERED: fentaNYL 100 MCG/2 ML INJ ONE (13:21)
[2021-07-05] MEDS ORDERED: ONDANSETRON 4 MG/2 ML INJ IV ONE (13:24)
[2021-07-05] MEDS ORDERED: MIDAZOLAM 2 MG/2 ML INJ IV ONE ×2 (13:25→13:27)
[2021-07-05] MEDS ORDERED: fentaNYL 100 MCG/2 ML INJ IV ONE ×2 (13:25→13:27)
[2021-07-05] MEDS ORDERED: HEPARIN 10,000 UNITS/10 ML VIAL IV ONE (13:50)
--- NOTE | 2021-07-05 14:04 | Operative Report ---
Operative Report Operative Report: EXAM: 1. Fluoroscopic-guided placement of a right internal jugular tunneled cuffed hemodialysis catheter. DATE: 07/05/2021 INDICATION: End-stage renal disease requiring hemodialysis access. MEDICATIONS: Please see nursing report for full details. DEVICES: 23 cm tip to cuff dual lumen hemodialysis catheter INSTITUTIONAL COOK: SARAH TORREZ MD CONTRAST: None PROCEDURE: The risks, benefits, and alternatives were discussed and informed consent was obtained. The patient was transported to the angiography suite in satisfactory/stable condition and was transported onto the angiography table. The patient was prepped and draped in a sterile fashion. The existing vascath was prepped and draped in a sterile fashion. Suture was cut. 0.035 inch wire was advanced through the Vas-Cath into the IVC. Vas-Cath was removed. The wire was cleaned with ChloraPrep. Over the 0.035 inch wire, serial dilatation was performed with ultimate placement of a peel-away sheath. Reverse tunneled PermCath was inserted to the peel-away sheath and positioned in the right atrium. Peel-away sheath removed. A suitable exit site was identified on the patient's chest inferior and lateral to the venotomy. The site was anesthetized with local anesthetic and the track was anesthetized. Dermatotomy was made. Reverse tunneler was then tunneled from dermatotomy to the venotomy site/catheter. The PermCath was attached to the tunneling device and reverse tunneled between the dermatotomy to the venotomy. The catheter was reassembled. 4-0 Vicryl suture was used to close the venotomy and Dermabond was then applied. 2-0 Ethilon suture was used to secure the catheter at the dermatotomy. The catheter was charged with heparin 1000 units/mL space. The patient was transferred from the angiography suite back to the floor in stable condition. FINDINGS: 1. Excellent flow was obtained through the dialysis catheter with 20 mL syringes. 2. The catheter tip is in the right atrium. IMPRESSION: 1. Fluoroscopic-guided placement of a right internal jugular tunneled cuffed hemodialysis catheter.
--- NOTE | 2021-07-05 14:36 | Discharge Summary ---
Providers - Providers Date of Admission: 06/29/21 19:22 Date of discharge: 07/05/21 Attending physician: DUSTIN GONZALEZ MD 06/30/21 01:53 Consult to Physician [CONS] Routine Comment: Consulting Provider: JOSEPH MORAN Physician Instructions: Reason For Exam: esrd 06/30/21 01:57 Consult to Physician [CONS] Routine Comment: Consulting Provider: SARAH LE Physician Instructions: Reason For Exam: Vas cath placement Primary care physician: ANTENNA INSTALLER Hospitalization Reason for admission: Shortness of breath and ESRD Condition: Fair Hospital course: 70-year-old male with history of hypertension and ESRD who presented on 07/03 evaluation for dialysis. He was found to be hypoxic and started on supplemental O2. Creatinine was 10.8. Nephrology was consulted for initiation of hemodialysis. Vas-Cath was placed and patient was dialyzed on 06/30. There is improvement in volume status and blood pressure. He was also treated for acute gout flare. He was weaned off of oxygen. Dialysis center was located and permacath was placed on 07/05. Patient was discharged home clinically stable. Disposition: 01 HOME / SELF CARE / HOMELESS Final Discharge Diagnosis (Prints w/discharge instructions): ESRD requiring HD. Acute hypoxic respiratory failure. hyperkalemia. Gout flare Time spent for discharge: 20 minutes Core Measure Documentation - Palliative Care Palliative Care/ Comfort Measures: Not Applicable - Core Measures Any of the following diagnoses?: none Exam - Physical Exam Narrative exam: GENERAL: Well-developed well-nourished. Sitting on the side of the bed in no acute distress. HEENT: Normocephalic. Atraumatic. CHEST/LUNGS: Vas-Cath at right chest. CTAB on room air. HEART/CARDIOVASCULAR: RRR. No murmur, rubs or gallops appreciated. ABDOMEN: +BS. NT/ND. MUSCULOSKELETAL: No joint effusion EXTREMITIES: No cyanosis, clubbing or edema. PSYCH: Cooperative. - Constitutional Vitals: Temp Pulse Resp BP Pulse Ox 97.3 F L 77 18 190/102 98 07/05/21 04:39 07/05/21 08:57 07/05/21 04:39 07/05/21 10:30 07/05/21 08:57 Plan Activity: advance as tolerated Diet: renal Care Plan Goals: You are accepted to start dialysis at: [facility] dialysis clinic [address] [place] [address] [place] [address] Phone number: [phone] Time/days: Every Sunday, Sunday and Sunday at 3 PM Your first treatment is scheduled for July 06, 2021 at 2:15 PM to fill out paperwork. Assessment: The patient was admitted for initiation of hemodialysis after being declared ESRD. Patient tolerated placement of Vas-Cath in the right upper chest without any complications. The patient has since been undergoing hemodialysis (a total of 2 times while hospitalized). Social work and case management have been working with the patient and his family to obtain Medicare/Medicaid. Permacath was placed on 07/05 without complications. Patient has secured a hemodialysis chair, and is medically cleared for discharge. Follow up with: PRIMARY CAREMD [Primary Care Provider] - 3-5 Days JOSEPH MORAN MD [Staff Physician] - 7 Days Prescriptions: hydrALAZINE [Apresoline TAB] 50 mg PO Q8H #90 tablet Calcium Carb/Vit D3/Minerals [Caltrate Plus] 1 each PO BID #60 tablet carvediloL [Coreg] 12.5 mg PO BID #60 tablet Valsartan [Diovan] 160 mg PO BID #60 tablet Epoetin [place]-Epbx 10,000 Unit [Retacrit] 4,000 unit IV EM PRN #2 vial PRN Reason: anemia calcitrioL [Rocaltrol] 0.5 mcg PO QDAY #30 capsule allopurinoL [Zyloprim] 100 mg PO Q72H 11 Days #16 tab
== END 2021-07-05 17:00 | disposition home or self-care (01) | DRG 673 ==
LOC: ED 15:16 → 4A 19:22
PROVIDERS: ADMIT Internal Medicine; ATTEND Student in an Organized Health Care Education/Training Program
PROC: 05HM33Z Insertion of Infusion Device into Right Internal Jugular Vein, Percutaneous Approach (ICD-10-PCS; principal; 2021-06-30)
PROC: B5131ZA Fluoroscopy of Right Jugular Veins using Low Osmolar Contrast, Guidance (ICD-10-PCS; 2021-06-30)
PROC: B543ZZA Ultrasonography of Right Jugular Veins, Guidance (ICD-10-PCS; 2021-06-30)
PROC: 5A1D70Z Performance of Urinary Filtration, Intermittent, Less than 6 Hours Per Day (ICD-10-PCS; 2021-06-30)
PROC: 5A1D70Z Performance of Urinary Filtration, Intermittent, Less than 6 Hours Per Day (ICD-10-PCS; 2021-07-02)
PROC: 5A1D70Z Performance of Urinary Filtration, Intermittent, Less than 6 Hours Per Day (ICD-10-PCS; 2021-07-04)
PROC: 0JH63XZ Insertion of Tunneled Vascular Access Device into Chest Subcutaneous Tissue and Fascia, Percutaneous Approach (ICD-10-PCS; 2021-07-05)
PROC: 02H633Z Insertion of Infusion Device into Right Atrium, Percutaneous Approach (ICD-10-PCS; 2021-07-05)
PROC: B5181ZA Fluoroscopy of Superior Vena Cava using Low Osmolar Contrast, Guidance (ICD-10-PCS; 2021-07-05)
DX: I12.0 Hypertensive chronic kidney disease with stage 5 chronic kidney disease or end stage renal disease (principal); N18.6 End stage renal disease; J96.01 Acute respiratory failure with hypoxia; I16.1 Hypertensive emergency; N25.81 Secondary hyperparathyroidism of renal origin; I10 Essential (primary) hypertension; E87.5 Hyperkalemia; E87.70 Fluid overload, unspecified; D64.9 Anemia, unspecified; E83.51 Hypocalcemia; E83.39 Other disorders of phosphorus metabolism; Z20.822 Contact with and (suspected) exposure to COVID-19
CPT/HCPCS: 36415; 36556; 36558; 77001; 80048; 80053; 80074; 82306; 82962; 83735; 83970; 84100; 85025; 85610; 85730; 87641; 93005; G0378; C1750; C1752; C1769; J0360; J0610; J0690; J1644; J1815; J2250; J2405; J3010; J7040; J7050; J7512; U0003

== ENCOUNTER 2021-09-06 05:53 | Day surgery (SDC) | payer MEDICAID ==
[2021-09-06] MEDS ORDERED: MIDAZOLAM 2 MG/2 ML INJ IV NR (06:00)
[2021-09-06] MEDS ORDERED: fentaNYL 100 MCG/2 ML INJ IV PRN (06:00)
[2021-09-06] MEDS ORDERED: SODIUM CHLORIDE 0.9% 1000 ML 1,000 ML IV SCH (06:00)
[2021-09-06 06:49] LABS: Hematocrit 33.6 % (35.5-45.6); Hemoglobin 10.4 gm/dl (11.8-15.2); Mean Corpuscular HGB Conc 31 % (32-34); Mean Corpuscular Volume 87 fl (84-94); Platelet Count 196 K/mm3 (140-440); Red Blood Count 3.86 M/mm3 (3.65-5.03); Red Cell Distribution Width 18.7 % (13.2-15.2)
[2021-09-06 07:00] LABS: Calcium 8.9 mg/dL (8.4-10.2)
[2021-09-06] MEDS ORDERED: ceFAZolin/STERILE WATER 2 GM/20 ML SYRINGE IV NR (07:00)
[2021-09-06] MEDS ORDERED: fentaNYL 100 MCG/2 ML INJ ONE (07:21)
[2021-09-06] MEDS ORDERED: propofoL 200 MG/20 ML VIAL IV ONE ×5 (07:22→09:36)
[2021-09-06] MEDS ORDERED: LIDOCAINE PF 100 MG/5 ML (CARDIAC SYRINGE) IV ONE (07:22)
--- NOTE | 2021-09-06 07:32 | Anesthesia Day of Surgery ---
Anesthesia Day of Surgery - Day of Surgery Patient Examined: Yes Patient H&P Reviewed: Yes Patient is NPO: Yes
--- NOTE | 2021-09-06 07:32 | Anesthesia Consultation ---
Anesthesia Consult and Med Hx Date of service: 09/06/21 - Airway Anesthetic Teeth Evaluation: Good, Dentures (upper, permanent) ROM Head & Neck: Adequate Mental/Hyoid Distance: Adequate Mallampati Class: Class III Intubation Access Assessment: Possibly Difficult - Pre-Operative Health Status ASA Pre-Surgery Classification: ASA3 Proposed Anesthetic Plan: MAC Nerve Block: supraclavicular - Pulmonary Hx Smoking: Yes (quit >20yrs ago) Hx Respiratory Symptoms: No - Cardiovascular System Hx Hypertension: Yes (took nifedipine this morning) Hx Heart Attack/AMI: No Hx Percutaneous Transluminal Coronary Angioplasty (PTCA): No Hx Cardia Arrhythmia: No - Central Nervous System CVA: No - Endocrine Hx End Stage Renal Disease: Yes (last HD 09/05/21) Hx Liver Disease: No Hx Insulin Dependent Diabetes: No Hx Non-Insulin Dependent Diabetes: No Hx Thyroid Disease: No - Hematic Hx Anemia: Yes - Other Systems Hx Obesity: Yes (BMI 37) - Additional Comments Anesthesia Medical History Comments: No hx anesthetic complications. Reports negative COVID test at HD 09/05.
[2021-09-06] MEDS ORDERED: BUPIVACAINE/PF (0.5%) 5 MG/1 ML 30 ML VIAL INFILTRATI ONE ×2 (07:41→07:47)
[2021-09-06] MEDS ORDERED: HEPARIN 10,000 UNITS/10 ML VIAL ONE (07:41)
[2021-09-06] MEDS ORDERED: SODIUM CHLORIDE 0.9% 500 ML 500 ML ONE (07:42)
[2021-09-06] MEDS ORDERED: LIDOCAINE (1%) 10 MG/1 ML VIAL 20 ML MDV ONE (07:47)
[2021-09-06] MEDS ORDERED: KETAMINE/STERILE WATER 50 MG/ML SYRINGE ONE (08:32)
[2021-09-06] MEDS ORDERED: HEPARIN 10,000 UNITS/10 ML VIAL IR ONE (08:45)
[2021-09-06] MEDS ORDERED: SODIUM CHLORIDE 0.9% 500 ML IVPB IRRIGATION ONE (08:47)
--- NOTE | 2021-09-06 09:59 | Short Stay Summary ---
Short Stay Documentation Date of service: 09/06/21 Narrative H&P: See H&P - History H&P: obtained from office - Allergies and Medications Current Medications: Allergies tramadol Adverse Reaction (Verified 07/01/21 07:05) Vomiting Patient states that when he takes tramadol on an empty stomach, it makes him vomit Home Medications Medication Instructions Recorded Confirmed Last Taken Type NIFEdipine XL [Procardia Xl] 60 mg PO BID #30 tablet 06/16/21 09/06/21 09/06/21 05:00 Rx Cholecalciferol (Vitamin D3) 2 cap PO QDAY 06/30/21 09/06/21 09/05/21 09:00 History [Vitamin D3 5,000 UNIT] Cyanocobalamin (Vitamin B-12) 500 mcg SL QDAY 06/30/21 09/06/21 09/05/21 09:00 History [Vitamin B-12] Calcium Carb/Vit D3/Minerals 1 each PO BID #60 tablet 07/04/21 09/06/21 09/05/21 17:00 Rx [Caltrate Plus] Epoetin [place]-Epbx 10,000 Unit 4,000 unit IV EM PRN #2 vial 07/04/21 08/30/21 Unknown Rx [Retacrit] allopurinoL [Zyloprim] 100 mg PO Q72H 11 Days #16 tab 07/04/21 08/30/21 Unknown Rx calcitrioL [Rocaltrol] 0.5 mcg PO QDAY #30 capsule 07/04/21 09/06/21 09/05/21 09:00 Rx Active Medications Cefazolin Sodium (Cefazolin/Sterile Water 2 Gm/20 Ml Syringe) 2 gm IV PREOP NR Stop: 09/07/21 23:59 Fentanyl (Fentanyl 100 Mcg/2 Ml Inj) 100 mcg IV ONCE PRN PRN Reason: sedation for nerve block Stop: 09/06/21 20:00 Last Admin: 09/06/21 07:55 Dose: 100 mcg Documented by: Sodium Chloride (Nacl 0.9% 1000 Ml) 1,000 mls @ 42 mls/hr IV DIRECT MELLISA Stop: 09/06/21 23:59 Last Admin: 09/06/21 07:50 Dose: 42 mls/hr Documented by: Midazolam HCl (Midazolam 2 Mg/2 Ml Inj) 2 mg IV PREOP NR Stop: 09/06/21 20:00 Last Admin: 09/06/21 07:55 Dose: 2 mg Documented by: - Brief post op/procedure progress note Date of procedure: 09/06/21 Pre-op diagnosis: End-stage renal disease Post-op diagnosis: same (End-Stage Renal Disease) Procedure: Creation of Left Brachiocephalic Arteriovenous Fistula Anesthesia: MAC, regional Surgeon: RISA ARIAS Estimated blood loss: minimal Pathology: none Condition: stable - Disposition Condition at discharge: Good Disposition: 01 HOME / SELF CARE / HOMELESS Short Stay Discharge Plan Activity: other (No heavy lifting with left arm for 2 weeks. Please use a s tress ball with left hand as often as possible.) Wound: open to air, keep clean and dry, other (Okay to wash the left arm wound with soap and water but do not soak in water for 2 weeks.) Follow up with: PRIMARY CARE, [Primary Care Provider] - 7 Days Prescriptions: HYDROcodone/APAP 7.5-325 [[place] 7.5/325] 1 each PO Q6HR PRN #30 tablet PRN Reason: Pain
--- NOTE | 2021-09-06 10:01 | Operative Report ---
Operative Report Operative Report: Date of procedure: 09/06/2021 Pre-operative diagnosis: End-Stage Renal Disease Post-operative diagnosis: End-Stage Renal Disease Procedure(s): Creation of Left Brachial Artery to Cephalic Vein Arteriovenous Fistula Surgeon: Sudhir Ornelas MD Electronics Assembler And Tester: None Anesthesia: Regional/MAC EBL: Minimal Counts: Correct Complications: None Condition: Stable Findings: Successful creation of left brachiocephalic arteriovenous fistula with palpable thrill and palpable radial pulse at the completion of the case. Specimen: None Indications: The patient is a 70-year-old male with history of end-stage renal disease who is currently on hemodialysis through a right internal jugular permacath. He is in need of long-term dialysis access and was found to be a suitable candidate for creation of a left brachiocephalic arteriovenous fistula. He was given the risk, benefits, and alternative procedures and consented to the procedure. Description of Procedure: The patient had a regional block of the patient's left arm was performed in the preoperative area prior to being transported to the operating room. Once the regional block was performed the patient was transported to the operating room and adequate sedation was given. When the patient was sedated a timeout was pe rformed and the patient's left arm was then prepped and draped in normal sterile fashion. A transverse incision was then made and carried down to the cephalic vein using sharp dissection. The vein was dissected out both proximally and distally and suture ligated and divided distally. I flushed the vein with heparinized saline and flow was controlled with a bulldog clamp. I then dissected out the brachial artery through this incision circumferentially both proximal and distal and controlled the artery with vessel loops. I systemically heparinized the patient with 3000 units of heparin IV and used angled DeBakey clamps to control flow through the artery. I created an arteriotomy using an 11 blade and Peralta scissors. I created an end to side anastomosis between the cephalic vein and brachial artery using a 6-0 Prolene in running fashion. Prior to completing the anastomosis I flashed the artery both proximally and distally and then flushed the anastomosis with heparinized saline to remove any debris. I then completed the anastomosis and removed all clamps allowing flow into the fistula which had an adequate thrill. I achieved hemostasis with a combination of Quick Clot and electrocautery. Once hemostasis had been achieved I closed the wound in 2 layers using a 3-0 Vicryl in a running fashion in the deep dermal layer and a 4-0 Monocryl in running fashion in the subcuticular layer. I then dressed the wound with Dermabond. The patient tolerated the procedure well. All sponge, needle, and instrument counts were correct. The patient was taken to the recovery area in stable condition.
[2021-09-06 12:13] VITALS: BP 120/74
--- NOTE | 2021-09-06 12:52 | Post Anesthesia Evaluation ---
- Post Anesthesia Evaluation Patient Participated: Yes Airway Patent: Yes Stable Respiratory Function: Yes Nausea/Vomiting: No Temp > 96.8F: Yes Pain Manageable: Yes Adequeate Hydration: Yes Anesthesia Complications: No
== END 2021-09-06 11:20 | disposition home or self-care (01) ==
LOC: OR 05:53
PROVIDERS: ATTEND Surgery Vascular Surgery
DX: I12.0 Hypertensive chronic kidney disease with stage 5 chronic kidney disease or end stage renal disease (principal); N18.6 End stage renal disease; Z99.2 Dependence on renal dialysis; E66.9 Obesity, unspecified; Z68.37 Body mass index [BMI] 37.0-37.9, adult; Z87.891 Personal history of nicotine dependence; Z79.899 Other long term (current) drug therapy; Z88.8 Allergy status to other drugs, medicaments and biological substances; Z98.890 Other specified postprocedural states
CPT/HCPCS: 36415; 36818; 64450; 80048; 82962; 85027; J0690; J1644; J2001; J2250; J2704; J3010; J3490; J7030; J7040; J7120; Q0162

== ENCOUNTER 2022-02-06 11:47 | Emergency (ER) | payer MEDICARE, MEDICAID ==
[2022-02-06 11:58] VITALS: BP 150/89
[2022-02-06 13:41] LABS: Albumin 4.9 g/dL (3.9-5); Calcium 9.4 mg/dL (8.4-10.2)
[2022-02-06 13:44] LABS: Basophils % (Auto) 0.6 % (0.0-1.8); Eosinophils # (Auto) 0.2 K/mm3 (0.0-0.4); Eosinophils % (Auto) 3.1 % (0.0-4.3); Hematocrit 34.1 % (35.5-45.6); Hemoglobin 11.1 gm/dl (11.8-15.2); Lymphocytes # (Auto) 1.3 K/mm3 (1.2-5.4); Lymphocytes % (Auto) 24.9 % (13.4-35.0); Mean Corpuscular HGB Conc 33 % (32-34); Mean Corpuscular Volume 87 fl (84-94); Monocytes # (Auto) 0.4 K/mm3 (0.0-0.8); Monocytes % (Auto) 8.4 % (0.0-7.3); Platelet Count 184 K/mm3 (140-440); Red Blood Count 3.92 M/mm3 (3.65-5.03); Red Cell Distribution Width 16.4 % (13.2-15.2)
--- NOTE | 2022-02-06 14:21 | XRay Report ---
CHEST 2 VIEWS INDICATION / CLINICAL INFORMATION: Catheter confirmation. COMPARISON: 06/15/21. FINDINGS: SUPPORT DEVICES: There is a large bore catheter on the right with the tip overlying the right lower n wayne, directed superiorly. HEART / MEDIASTINUM: The heart size and pulmonary vasculature are normal. LUNGS / PLEURA: No significant pulmonary or pleural abnormality. No pneumothorax. ADDITIONAL FINDINGS: No significant additional findings. IMPRESSION: There is a catheter overlying the right neck which could be extravascular. If the tip is intravascular, it is presumably in the right jugular vein and directed superiorly. Signer Name: Frank Macedo MD Signed: 02/06/2022 2:17 PM Workstation Name: [id number]
--- NOTE | 2022-02-06 17:17 | Emergency Department Report ---
HPI - General Chief Complaint: Wound/Laceration Time Seen by Provider: 02/06/22 17:13 - HPI HPI: The patient was told at dialysis to come here to take a look at his right supraclavicular hemodialysis catheter. The patient has a working left upper extremity AV fistula. He says the catheter seems like it slipped out a little bit but denies any localized pain and no other symptoms. He denies nausea vomiting fever chills chest pain focal weakness shortness of breath or any other associated symptoms. He is scheduled to get this catheter removed in 3 days from now. ED Past Medical Hx - Past Medical History Hx Hypertension: Yes (took nifedipine this morning) Hx Heart Attack/AMI: No Hx Congestive Heart Failure: Yes Hx Liver Disease: No Hx Renal Disease: Yes (STAGE 4 WITH HEMODIALYSIS M/W/F) - Surgical History Additional Surgical History: AV fistula in upper left arm, cath in upper right chest - Social History Smoking Status: Never Smoker Substance Use Type: None - Medications Home Medications: Home Medications Medication Instructions Recorded Confirmed Last Taken Type NIFEdipine XL [Procardia Xl] 60 mg PO BID #30 tablet 06/16/21 09/06/21 09/06/21 05:00 Rx Cholecalciferol (Vitamin D3) 2 cap PO QDAY 06/30/21 09/06/21 09/05/21 09:00 History [Vitamin D3 5,000 UNIT] Cyanocobalamin (Vitamin B-12) 500 mcg SL QDAY 06/30/21 09/06/21 09/05/21 09:00 History [Vitamin B-12] Calcium Carb/Vit D3/Minerals 1 each PO BID #60 tablet 07/04/21 09/06/21 09/05/21 17:00 Rx [Caltrate Plus] Epoetin [place]-Epbx 10,000 Unit 4,000 unit IV EM PRN #2 vial 07/04/21 08/30/21 Unknown Rx [Retacrit] allopurinoL [Zyloprim] 100 mg PO Q72H 11 Days #16 tab 07/04/21 08/30/21 Unknown Rx calcitrioL [Rocaltrol] 0.5 mcg PO QDAY #30 capsule 07/04/21 09/06/21 09/05/21 09:00 Rx HYDROcodone/APAP 7.5-325 [[place] 1 each PO Q6HR PRN #30 tablet 09/06/21 Unknown Rx 7.5/325] ED Review of Systems ROS: Stated complaint: DIALYSIS TUBE COMING OUT Other details as noted in HPI Other: All other systems reviewed and negative. Physical Exam - Physical Exam Vital Signs: Vital Signs 02/06/22 11:53 Temperature 98.3 F Pulse Rate 89 Respiratory 16 Rate Blood Pressure 150/89 O2 Sat by Pulse 99 Oximetry Physical Exam: Physical Exam: Constitutional: AAOX3. No acute distress. No diaphoresis. HENT: Normocephalic. Pupils equal and reactive. No throat edema or erythema. Neck: No neck rigidity or tenderness. Cardiovascular: Heart sounds: No murmur. Normal rate and regular rhythm. Pulses: Intact distal pulses. Lungs: No wheezing or rales. Chest wall: No tenderness. There is a hemodialysis catheter on the patient's right anterior chest which is supra clavicular. It seems it might have been pulled a couple centimeters but all seems intact without any evidence of localized infection. Abdominal: No distension. No mass/pulsatile mass. No abdominal tenderness, guarding nor rebound. Back: No CVA TTP. Musculoskeletal: Normal range of motion. No edema, No calf TTP. The patient has an intact left arm AV fistula with thrill. Skin: Warm and dry. Neurological: Alert and oriented to person, place, and time. Psychiatric: Mood and affect normal. Normal cognition and memory. Normal judgement. ED Course Vital Signs 02/06/22 11:53 Temperature 98.3 F Pulse Rate 89 Respiratory 16 Rate Blood Pressure 150/89 O2 Sat by Pulse 99 Oximetry - Reevaluation(s) Reevaluation #1: 02/06/22 17:15 Since he is already having an appointment with his surgeon I will leave the catheter where it is which is very secure. They will take it out once he sees a surgeon in 3 days or he will return if any other issues arise. ED Medical Decision Making - Lab Data Result diagrams: 02/06/22 12:58 02/06/22 12:58 Critical care attestation.: If time is entered above; I have spent that time in minutes in the direct care of this critically ill patient, excluding procedure time. ED Disposition Clinical Impression: Problem with intravenous catheter Disposition: HOME / SELF CARE / HOMELESS Is pt being admited?: No Does the pt Need Aspirin: No Condition: Stable Additional Instructions: Your catheter might help but displaced by couple centimeters but it seems in good place and well secured. Please make sure to make your appointment with your surgeon to get it removed in 3 days. Return if any other issues arise.
--- NOTE | 2022-02-06 20:17 | Electrocardiograph Report ---
[facility] Test Date: 2022-02-06 Test Time: 12:50:07 Pat Name: SHANA MARSH Department: Room: Gender: M Meter Record Clerk: AMELIA : 1950 Requested By: ED DOC Order Number: [id number] Reading MD: Rashawn Gee Measurements Intervals [place] Rate: 76 P: 48 VA: 222 QRS: -30 QRSD: 93 T: 66 QT: 396 QTc: 446 Interpretive Statements Sinus rhythm Prolonged VA interval Probable left atrial enlargement Left ventricular hypertrophy Compared to ECG 06/29/2021 18:29:21 First degree AV block now present Left ventricular hypertrophy now present Electronically Signed On 02-06-2022 20:17:13 EDT by Rashawn Gee
== END 2022-02-06 17:57 | disposition home or self-care (01) ==
LOC: ED 11:47
DX: T82.42XA Displacement of vascular dialysis catheter, initial encounter (principal); I13.0 Hypertensive heart and chronic kidney disease with heart failure and stage 1 through stage 4 chronic kidney disease, or unspecified chronic kidney disease; N18.4 Chronic kidney disease, stage 4 (severe); I50.9 Heart failure, unspecified; Z99.2 Dependence on renal dialysis; Y84.9 Medical procedure, unspecified as the cause of abnormal reaction of the patient, or of later complication, without mention of misadventure at the time of the procedure; Y92.89 Other specified places as the place of occurrence of the external cause
CPT/HCPCS: 36415; 71046; 80053; 85025; 93005; 99283

== ENCOUNTER 2022-06-03 18:22 | Inpatient (IN) | payer MEDICARE ==
[2022-06-03] MEDS ORDERED: SODIUM BICARB 8.4% 50 MEQ/50 ML SYRINGE IV ONE (22:10)
--- NOTE | 2022-06-03 22:19 | Emergency Department Report ---
ED Recheck HPI - General Chief Complaint: Recheck/Abnormal Lab/Rx Stated Complaint: HIGH BP Time Seen by Provider: 06/03/22 22:01 Source: patient Mode of arrival: Ambulatory Limitations: No Limitations - History of Present Illness Initial Comments: 71-year-old male with history of end-stage renal disease (dialysis Sunday/Sunday/Sunday) presents to the emergency department possible hyperkalemia. Patient was at dialysis yesterday, and called today stating that his potassium was 7.0. Patient reports crampy, bilaterally is 1 week. The pain is moderate and only occurs when he is standing up or walking. Patient denies chest pain, shortness of breath, palpitations lightheadedness, or any other symptoms. Reports similarly high potassium, but denies alleviating or aggravating factors. - Related Data Home Medications Medication Instructions Recorded Confirmed Last Taken Cholecalciferol (Vitamin D3) 2 cap PO QDAY 06/30/21 09/06/21 09/05/21 09:00 [Vitamin D3 5,000 UNIT] Cyanocobalamin (Vitamin B-12) 500 mcg SL QDAY 06/30/21 09/06/21 09/05/21 09:00 [Vitamin B-12] Previous Rx's Medication Instructions Recorded Last Taken Type NIFEdipine XL [Procardia Xl] 60 mg PO BID #30 tablet 06/16/21 09/06/21 05:00 Rx Calcium Carb/Vit D3/Minerals 1 each PO BID #60 tablet 07/04/21 09/05/21 17:00 Rx [Caltrate Plus] Epoetin Wellington-Epbx 10,000 Unit 4,000 unit IV EM PRN #2 vial 07/04/21 Unknown Rx [Retacrit] allopurinoL [Zyloprim] 100 mg PO Q72H 11 Days #16 tab 07/04/21 Unknown Rx calcitrioL [Rocaltrol] 0.5 mcg PO QDAY #30 capsule 07/04/21 09/05/21 09:00 Rx HYDROcodone/APAP 7.5-325 [[place] 1 each PO Q6HR PRN #30 tablet 09/06/21 Unknown Rx 7.5/325] Allergies Allergy/AdvReac Type Severity Reaction Status Date / Time tramadol AdvReac Vomiting Verified 07/01/21 07:05 ED Review of Systems ROS: Stated complaint: HIGH BP Other details as noted in HPI Comment: All other systems reviewed and negative Constitutional: denies: chills, fever Eyes: denies: eye pain, eye discharge, vision change ENT: denies: ear pain, throat pain Respiratory: denies: cough, shortness of breath, wheezing Cardiovascular: denies: chest pain, palpitations Endocrine: no symptoms reported Gastrointestinal: denies: abdominal pain, nausea, diarrhea Genitourinary: denies: urgency, dysuria Musculoskeletal: myalgia. denies: back pain, joint swelling, arthralgia Skin: denies: rash, lesions Neurological: denies: headache, weakness, paresthesias Psychiatric: denies: anxiety, depression Hematological/Lymphatic: denies: easy bleeding, easy bruising ED Past Medical Hx - Past Medical History Hx Hypertension: Yes (took nifedipine this morning) Hx Heart Attack/AMI: No Hx Congestive Heart Failure: Yes Hx Liver Disease: No Hx Renal Disease: Yes (STAGE 4 WITH HEMODIALYSIS M/W/F) - Surgical History Additional Surgical History: AV fistula in upper left arm, cath in upper right chest - Social History Smoking Status: Never Smoker Substance Use Type: None - Medications Home Medications: Home Medications Medication Instructions Recorded Confirmed Last Taken Type NIFEdipine XL [Procardia Xl] 60 mg PO BID #30 tablet 06/16/21 09/06/21 09/06/21 05:00 Rx Cholecalciferol (Vitamin D3) 2 cap PO QDAY 06/30/21 09/06/21 09/05/21 09:00 History [Vitamin D3 5,000 UNIT] Cyanocobalamin (Vitamin B-12) 500 mcg SL QDAY 06/30/21 09/06/21 09/05/21 09:00 History [Vitamin B-12] Calcium Carb/Vit D3/Minerals 1 each PO BID #60 tablet 07/04/21 09/06/21 09/05/21 17:00 Rx [Caltrate Plus] Epoetin [place]-Epbx 10,000 Unit 4,000 unit IV EM PRN #2 vial 07/04/21 08/30/21 Unknown Rx [Retacrit] allopurinoL [Zyloprim] 100 mg PO Q72H 11 Days #16 tab 07/04/21 08/30/21 Unknown Rx calcitrioL [Rocaltrol] 0.5 mcg PO QDAY #30 capsule 07/04/21 09/06/21 09/05/21 09:00 Rx HYDROcodone/APAP 7.5-325 [[place] 1 each PO Q6HR PRN #30 tablet 09/06/21 Unknown Rx 7.5/325] ED Physical Exam - General Limitations: No Limitations General appearance: alert, in no apparent distress - Head Head exam: Present: atraumatic, normocephalic - Eye Eye exam: Present: normal appearance, PERRL, EOMI - ENT ENT exam: Present: mucous membranes moist - Neck Neck exam: Present: normal inspection - Respiratory Respiratory exam: Present: normal lung sounds bilaterally. Absent: respiratory distress, wheezes, chest wall tenderness - Cardiovascular Cardiovascular Exam: Present: regular rate, normal rhythm. Absent: systolic murmur, diastolic murmur, rubs, gallop - GI/Abdominal GI/Abdominal exam: Present: soft, normal bowel sounds - Rectal Rectal exam: Present: deferred - Extremities Exam Extremities exam: Present: normal inspection - Back Exam Back exam: Present: normal inspection - Neurological Exam Neurological exam: Present: alert, oriented X3 - Psychiatric Psychiatric exam: Present: normal affect, normal mood - Skin Skin exam: Present: warm, dry, intact, normal color. Absent: rash ED Course Vital Signs 06/03/22 06/03/22 21:03 23:46 Temperature 98.6 F Pulse Rate 72 Pulse Rate [ 68 Bilateral Throughout] Respiratory 20 Rate Respiratory 16 Rate [Bilateral Throughout] Blood Pressure 169/93 [Right] O2 Sat by Pulse 99 Oximetry ED Recheck MDM - Medical Decision Making 71-year-old male with history of end-stage renal disease presents to the emergency department with concern that he may have elevated potassium, and he was notified that his potassium from dialysis was 7.0, yesterday. Patient's only complaints are crampy bilateral leg pain. Vital signs and physical exam are unremarkable. Chest x-ray shows no acute abnormalities. Patient's chemistry is remarkable for potassium of 7.8, BUN of 90, and creatinine of 17.9. Patient was given calcium chloride, dextrose, insulin, sodium bicarbonate, and nebulized albuterol. Kayexalate was also ordered. Nephrology was consulted, and order stat dialysis. Patient verbalized understanding of his diagnoses, and is amenable to plan and admission. Patient will be admitted to Dr. Polanco. EKG is sinus rhythm at 71 with long SC interval, LVH with no hyperacute T waves and no ST-T wave changes concerning for infarct. Critical Care Time: Yes Critical care time in (mins) excluding proc time.: 33 Critical care attestation.: If time is entered above; I have spent that time in minutes in the direct care of this critically ill patient, excluding procedure time. ED Disposition Clinical Impression: Hyperkalemia, Acute on chronic renal failure Disposition: ADMITTED INPATIENT Is pt being admited?: Yes Condition: Stable Time of Disposition: 23:52
[2022-06-03 22:30] LABS: Basophils % (Auto) 0.4 % (0.0-1.8); Eosinophils # (Auto) 0.2 K/mm3 (0.0-0.4); Eosinophils % (Auto) 2.9 % (0.0-4.3); Hematocrit 34.5 % (35.5-45.6); Hemoglobin 11.3 gm/dl (11.8-15.2); Lymphocytes # (Auto) 1.8 K/mm3 (1.2-5.4); Lymphocytes % (Auto) 29.7 % (13.4-35.0); Mean Corpuscular HGB Conc 33 % (32-34); Mean Corpuscular Volume 91 fl (84-94); Monocytes # (Auto) 0.6 K/mm3 (0.0-0.8); Monocytes % (Auto) 9.4 % (0.0-7.3); Platelet Count 166 K/mm3 (140-440); Red Blood Count 3.79 M/mm3 (3.65-5.03); Red Cell Distribution Width 15.2 % (13.2-15.2)
[2022-06-03 22:53] LABS: Albumin 5.4 g/dL (3.9-5); Calcium 8.9 mg/dL (8.4-10.2)
[2022-06-03] MEDS ORDERED: INSULIN REGULAR, HUMAN 100 UNITS/1 ML IV ONE (23:07)
[2022-06-03] MEDS ORDERED: CALCIUM CHLORIDE 1,000 MG/10 ML SYRINGE IV ONE (23:07)
[2022-06-03] MEDS ORDERED: DEXTROSE 50% IN WATER (25GM) 50 ML SYRINGE IV ONE (23:07)
[2022-06-03] MEDS ORDERED: ALBUTEROL 2.5 MG/3 ML NEBU IH ONE (23:12)
--- NOTE | 2022-06-03 23:46 | XRay Report ---
CHEST 1 VIEW 06/03/2022 11:20 PM INDICATION / CLINICAL INFORMATION: hyperkalemia. COMPARISON: 02/06/2022 FINDINGS: SUPPORT DEVICES: None. HEART / MEDIASTINUM: No significant abnormality. LUNGS / PLEURA: No significant pulmonary or pleural abnormality. No pneumothorax. ADDITIONAL FINDINGS: None IMPRESSION: 1. No acute chest process. Signer Name: Frank Schaeffer MD Signed: 06/03/2022 11:41 PM Workstation Name: [id number]
[2022-06-03] MEDS ORDERED: SODIUM POLYSTYRENE 15 GM/60 ML ORAL LIQD PO ONE (23:55)
[2022-06-04 01:37] LABS: Hepatitis B Surface Antigen Non-Reactive (Negative); Hepatitis C Virus Antibody Non-Reactive (NonReactive)
[2022-06-04] MEDS ORDERED: ALBUTEROL 2.5 MG/3 ML NEBU IH PRN ×2 (01:58→09:00)
[2022-06-04] MEDS ORDERED: MORPHINE 4 MG/1 ML INJ IV PRN (01:58)
[2022-06-04] MEDS ORDERED: MORPHINE 2 MG/1 ML INJ IV PRN (01:58)
[2022-06-04] MEDS ORDERED: ONDANSETRON 4 MG/2 ML INJ IV PRN (01:58)
[2022-06-04] MEDS ORDERED: ACETAMINOPHEN 325 MG TAB PO PRN (01:58)
[2022-06-04] MEDS ORDERED: EPOETIN ALFA-EPBX 10,000 UNIT/1 ML VIAL IV PRN (02:00)
--- NOTE | 2022-06-04 02:06 | History and Physical Report ---
History of Present Illness Date of examination: 06/04/22 Date of admission: 06/04/22 Chief complaint: Hyperkalemia Abnormal labs History of present illness: 71-year-old male with history of end-stage renal disease presents to the emergency department with concern that he may have elevated potassium, and he was notified that his potassium from dialysis was 7.0, yesterday. Patient's only complaints are crampy bilateral leg pain. Vital signs and physical exam are unremarkable. Chest x-ray shows no acute abnormalities. Patient's chemistry is remarkable for potassium of 7.8, BUN of 90, and creatinine of 17.9. Patient was given calcium chloride, dextrose, insulin, sodium bicarbonate, and nebulized albuterol. Kayexalate was also ordered. Nephrology was consulted, and patient is having stat dialysis. EKG is sinus rhythm at 71 with long [place] interval, LVH with no hyperacute T waves and no ST-T wave changes concerning for infarct. Past History Past Medical History: ESRD, heart failure, hypertension, renal failure, other (Yes (STAGE 4 WITH HEMODIALYSIS M/W/F)) Past Surgical History: Other (AV fistula in upper left arm, cath in upper right chest) Social history: no significant social history Family history: hypertension Medications and Allergies Allergies Allergy/AdvReac Type Severity Reaction Status Date / Time tramadol AdvReac Vomiting Verified 07/01/21 07:05 Home Medications Medication Instructions Recorded Confirmed Last Taken Type NIFEdipine XL [Procardia Xl] 60 mg PO BID #30 tablet 06/16/21 09/06/21 09/06/21 05:00 Rx Cholecalciferol (Vitamin D3) 2 cap PO QDAY 06/30/21 09/06/21 09/05/21 09:00 History [Vitamin D3 5,000 UNIT] Cyanocobalamin (Vitamin B-12) 500 mcg SL QDAY 06/30/21 09/06/21 09/05/21 09:00 History [Vitamin B-12] Calcium Carb/Vit D3/Minerals 1 each PO BID #60 tablet 07/04/21 09/06/21 09/05/21 17:00 Rx [Caltrate Plus] Epoetin [place]-Epbx 10,000 Unit 4,000 unit IV EM PRN #2 vial 07/04/21 08/30/21 Unknown Rx [Retacrit] allopurinoL [Zyloprim] 100 mg PO Q72H 11 Days #16 tab 07/04/21 08/30/21 Unknown Rx calcitrioL [Rocaltrol] 0.5 mcg PO QDAY #30 capsule 07/04/21 09/06/21 09/05/21 09:00 Rx HYDROcodone/APAP 7.5-325 [Metaline 1 each PO Q6HR PRN #30 tablet 09/06/21 Unknown Rx 7.5/325] Review of Systems All systems: negative Constitutional: other (Bilaterally crampy for 1 week) Exam - Constitutional Vitals: Temp Pulse Resp BP Pulse Ox 98.6 F 78 16 169/93 99 06/03/22 21:03 06/04/22 00:18 06/04/22 00:18 06/03/22 21:03 06/03/22 21:03 General appearance: Present: no acute distress, well-nourished - EENT Eyes: Present: PERRL ENT: hearing intact, clear oral mucosa - Neck Neck: Present: supple, normal ROM - Respiratory Respiratory effort: normal Respiratory: bilateral: CTA - Cardiovascular Heart Sounds: Present: S1 & S2. Absent: rub, click - Extremities Extremities: pulses symmetrical, No edema Peripheral Pulses: within normal limits - Abdominal General gastrointestinal: Present: soft, non-tender, non-distended, normal bowel sounds Male genitourinary: Present: normal - Integumentary Integumentary: Present: clear, warm, dry - Musculoskeletal Musculoskeletal: gait normal, strength equal bilaterally - Psychiatric Psychiatric: appropriate mood/affect, intact judgment & insight - Neurologic Neurologic: CNII-XII intact, moves all extremities Results - Labs CBC & Chem 7: 06/03/22 21:33 06/03/22 21:33 Labs: Laboratory Last Values WBC 6.1 K/mm3 (4.5-11.0) 06/03/22 21:33 RBC 3.79 M/mm3 (3.65-5.03) 06/03/22 21:33 Hgb 11.3 gm/dl (11.8-15.2) L 06/03/22 21:33 Hct 34.5 % (35.5-45.6) L 06/03/22 21:33 MCV 91 fl (84-94) 06/03/22 21:33 MCH 30 pg (28-32) 06/03/22 21:33 MCHC 33 % (32-34) 06/03/22 21:33 RDW 15.2 % (13.2-15.2) 06/03/22 21:33 Plt Count 166 K/mm3 (140-440) 06/03/22 21:33 Lymph % (Auto) 29.7 % (13.4-35.0) 06/03/22 21:33 [place] % (Auto) 9.4 % (0.0-7.3) H 06/03/22 21:33 Eos % (Auto) 2.9 % (0.0-4.3) 06/03/22 21:33 Baso % (Auto) 0.4 % (0.0-1.8) 06/03/22 21:33 Lymph # (Auto) 1.8 K/mm3 (1.2-5.4) 06/03/22 21:33 [place] # (Auto) 0.6 K/mm3 (0.0-0.8) 06/03/22 21:33 Eos # (Auto) 0.2 K/mm3 (0.0-0.4) 06/03/22 21:33 Baso # (Auto) 0.0 K/mm3 (0.0-0.1) 06/03/22 21:33 Seg Neutrophils % 57.6 % (40.0-70.0) 06/03/22 21:33 Seg Neutrophils # 3.5 K/mm3 (1.8-7.7) 06/03/22 21:33 Sodium 139 mmol/L (137-145) 06/03/22 21:33 Potassium 7.8 mmol/L (3.6-5.0) H* 06/03/22 21:33 Chloride 102.0 mmol/L (98-107) 06/03/22 21:33 Carbon Dioxide 16 mmol/L (22-30) L 06/03/22 21:33 Anion Gap 29 mmol/L 06/03/22 21:33 BUN 90 mg/dL (9-20) H 06/03/22 21:33 Creatinine 17.6 mg/dL (0.8-1.3) H 06/03/22 21:33 Estimated GFR 3 ml/min 06/03/22 21:33 BUN/Creatinine Ratio 5 % 06/03/22 21:33 Glucose 73 mg/dL (75-100) L 06/03/22 21:33 Calcium 8.9 mg/dL (8.4-10.2) 06/03/22 21:33 Total Bilirubin 0.20 mg/dL (0.1-1.2) 06/03/22 21:33 AST 10 units/L (5-40) 06/03/22 21:33 ALT 9 units/L (7-56) 06/03/22 21:33 Alkaline Phosphatase 110 units/L (35-129) 06/03/22 21:33 Total Protein 8.5 g/dL (6.3-8.2) H 06/03/22 21:33 Albumin 5.4 g/dL (3.9-5) H 06/03/22 21:33 Albumin/Globulin Ratio 1.7 % 06/03/22 21:33 Hepatitis A IgM Ab Non-reactive (NonReactive) 06/04/22 00:36 Hep Bs Antigen Non-reactive (Negative) 06/04/22 00:36 Hep B Core IgM Ab Non-reactive (NonReactive) 06/04/22 00:36 Hepatitis C Antibody Non-reactive (NonReactive) 06/04/22 00:36 - Imaging and Cardiology Chest x-ray: report reviewed Assessment and Plan VTE prophylaxis?: Mechanical Plan of care discussed with patient/family: Yes - Patient Problems (1) ESRD needing dialysis Current Visit: No Status: Acute Plan to address problem: Admit the patient to the medical telemetry. Renal diet.Patient was given calcium chloride, dextrose, insulin, sodium bicarbonate, and nebulized albuterol. Kayexalate was also ordered. Nephrology was consulted, and patient is having stat dialysis. Recheck CBC BMP in the morning. Most likely the dialysis catheter is not working properly. The pannus pressure is high and that is why the hyperkalemia. Check with nephrology and consult vascular surgeon if needed to address that (2) Hyperkalemia Current Visit: Yes Status: Acute Plan to address problem: Renal diet.Patient was given calcium chloride, dextrose, insulin, sodium bicarbonate, and nebulized albuterol. Kayexalate was also ordered. Nephrology was consulted, and patient is having stat dialysis. Recheck CBC BMP in the morning. Most likely the dialysis catheter is not working properly. The pannus pressure is high and that is why the hyperkalemia. Check with nephrology and consult vascular surgeon if needed to address that (3) CHF (congestive heart failure) Current Visit: Yes Status: Acute Plan to address problem: Fluid restriction. Daily weight. Maintain input output. Continue dialysis. Continue home medication (4) Uncontrolled hypertension Current Visit: No Status: Acute Plan to address problem: Nifedipine XL 60 mg p.o. twice daily. Hydralazine 10 mg IV every 6 hours as needed. We will monitor the patient closely (5) DVT prophylaxis Current Visit: No Status: Acute Plan to address problem: SCD for DVT prophylaxis. Pepcid 20 mg p.o. twice daily for GI prophylaxis. Patient is a full code
[2022-06-04] MEDS ORDERED: SODIUM POLYSTYRENE 15 GM/60 ML ORAL LIQD PO ONE ×2 (02:07→10:40)
[2022-06-04] MEDS ORDERED: SODIUM BICARB 8.4% 50 MEQ/50 ML SYRINGE IV ONE (02:08)
[2022-06-04] MEDS ORDERED: CALC GLUCONATE 1GM/NS 100 ML 1 GM/100 ML BAG IV ONE (02:15)
[2022-06-04] MEDS: IPRATROPIUM/ALBUTEROL SULFATE 3 ML AMPUL.NEB IH SCH ×2 (05:46→08:40)
[2022-06-04] MEDS ORDERED: EPOETIN ALFA-EPBX 2,000 UNIT/1 ML INJ IV PRN (08:00)
[2022-06-04 09:00] LABS: Calcium 8.5 mg/dL (8.4-10.2)
[2022-06-04] MEDS: CYANOCOBALAMIN (VIT B-12) 1000 MCG TAB PO SCH (09:41)
--- NOTE | 2022-06-04 09:41 | Consultation ---
History of Present Illness - Reason for Consult Consult date: 06/04/22 end stage renal disease - History of Present Illness The patient is a 71 year old male with ESRD was admitted yesterday for severe hyperkalemia. STAT HD ordered but had malfunctioned access, 2L UF were tolerated but remains to have elevated K Past History Past Medical History: ESRD, heart failure, hypertension, renal failure, other (Yes (STAGE 4 WITH HEMODIALYSIS M/W/F)) Past Surgical History: Other (AV fistula in upper left arm, cath in upper right chest) Social history: no significant social history Family history: hypertension Medications and Allergies Allergies Allergy/AdvReac Type Severity Reaction Status Date / Time tramadol AdvReac Vomiting Verified 06/04/22 05:30 Home Medications Medication Instructions Recorded Confirmed Last Taken Type NIFEdipine XL [Procardia Xl] 60 mg PO BID #30 tablet 06/16/21 06/04/22 05/29/22 Rx Cholecalciferol (Vitamin D3) 2 cap PO QDAY 06/30/21 06/04/22 05/29/22 History [Vitamin D3 5,000 UNIT] Cyanocobalamin (Vitamin B-12) 500 mcg SL QDAY 06/30/21 06/04/22 05/29/22 History [Vitamin B-12] AtorvaSTATin [Lipitor] 40 mg PO QHS 06/04/22 06/04/22 05/29/22 History Doxazosin [Cardura] 4 mg PO QDAY 06/04/22 06/04/22 05/21/22 History Active Meds: Active Medications Acetaminophen (Acetaminophen 325 Mg Tab) 650 mg PO Q4H PRN PRN Reason: Pain MILD(1-3)/Fever >100.5/TAVERAS Albuterol (Albuterol 2.5 Mg/3 Ml Nebu) 2.5 mg IH Q4HRT PRN PRN Reason: Shortness Of Breath Allopurinol (Allopurinol 100 Mg Tab) 100 mg PO MoWeFr MELLISA Calcitriol (Calcitriol 0.5 Mcg Cap) 0.5 mcg PO QDAY MELLISA Cholecalciferol (Cholecalciferol (Vit D3) 5,000 Unit Tab) 10,000 unit PO QDAY MELLISA Cyanocobalamin (Cyanocobalamin (Vit B-12) 1000 Mcg Tab) 500 mcg PO QDAY MELLISA Dextrose (Dextrose 50% In Water (25gm) 50 Ml Syringe) 25 ml IV Q30MIN [facility]; Protocol Stop: 06/05/22 10:01 Epoetin [place]-epbx (Epoetin [place]-Epbx 2,000 Unit/1 Ml Inj) 4,000 unit IV EM PRN PRN Reason: anemia Famotidine (Famotidine 10 Mg Tab) 10 mg PO BID [facility] Calcium Gluconate 1,000 mg/ (Sodium Chloride) 110 mls @ 660 mls/hr IV ONCE ONE Stop: 06/04/22 09:44 Insulin Human Regular (Insulin Regular, Human 100 Units/1 Ml) 5 units IV ONCE ONE Stop: 06/04/22 09:35 Morphine Sulfate (Morphine 2 Mg/1 Ml Inj) 2 mg IV Q4H PRN PRN Reason: Pain, Moderate (4-6) Morphine Sulfate (Morphine 4 Mg/1 Ml Inj) 4 mg IV Q4H PRN PRN Reason: Pain , Severe (7-10) Multivitamins/Minerals (Calcium Carb/Vit D3/Minerals 600 Mg/800 Units Tab) 1 each PO BID [facility] Nifedipine (Nifedipine Xl 60 Mg Tab) 60 mg PO BID [facility] Ondansetron HCl (Ondansetron 4 Mg/2 Ml Inj) 4 mg IV Q8H PRN PRN Reason: Nausea And Vomiting Sodium Chloride (Sodium Chloride 0.9% 10 Ml Flush Syringe) 10 ml IV BID [facility] Sodium Chloride (Sodium Chloride 0.9% 10 Ml Flush Syringe) 10 ml IV PRN PRN PRN Reason: LINE FLUSH Sodium Polystyrene Sulfonate (Sodium Polystyrene 15 Gm/60 Ml Oral Liqd) 30 gm PO ONCE ONE Stop: 06/04/22 09:36 Review of Systems All systems: negative (weakness) Exam - Vital Signs Vital signs: Vital Signs Temp Pulse Resp BP Pulse Ox 98.6 F 72 20 169/93 99 06/03/22 21:03 06/03/22 21:03 06/03/22 21:03 06/03/22 21:03 06/03/22 21:03 - General Appearance General appearance: well-developed EENT: ATNC, PERRL Neck: Present: neck supple Respiratory: Clear to Ascultation Heart: regular, S1S2 Gastrointestinal: Present: normoactive bowel sounds Integumentary: no rash, warm and dry Neurologic: no focal deficit, no asterixis Musculoskeletal: Present: deferred Results - Lab Results 06/03/22 21:33 06/04/22 08:00 Most recent lab results Calcium 8.5 mg/dL (8.4-10.2) 06/04/22 08:00 Assessment and Plan ESRD on HD Anemia in CKD HTN Hyperklaemia S/P STAT HD yesterday for clearance volume removal, malfunctioned access, vascular surgery was consulted HD again today with 1K bath hyperkalemia cocktail ordered. will assess dialysis needs daily STEFFANY with HD Renally dose meds Strict I&O Daily weight
[2022-06-04] MEDS: NIFEdipine XL 60 MG TAB PO SCH ×2 (09:42→21:46)
[2022-06-04] MEDS: CHOLECALCIFEROL (VIT D3) 5,000 UNIT TAB PO SCH (09:42)
[2022-06-04] MEDS: CALCITRIOL 0.5 MCG CAP PO SCH (09:42)
[2022-06-04] MEDS: FAMOTIDINE 10 MG TAB PO SCH ×2 (09:42→21:46)
[2022-06-04] MEDS: CALCIUM CARB/VIT D3/MINERALS 600 MG/800 UNITS TAB PO SCH ×2 (09:53→21:46)
[2022-06-04] MEDS ORDERED: DEXTROSE 50% IN WATER (25GM) 50 ML SYRINGE IV SCH (10:00)
[2022-06-04] MEDS ORDERED: FAMOTIDINE 20 MG TAB PO SCH (10:00)
[2022-06-04] MEDS ORDERED: CHOLECALCIFEROL 125 MCG PO SCH (10:00)
[2022-06-04] MEDS ORDERED: CYANOCOBALAMIN 500 MCG SL SCH (10:00)
[2022-06-04] MEDS ORDERED: [UNRECOGNIZED DRUG - OTHER] PO SCH (10:00)
--- NOTE | 2022-06-04 10:10 | Event Note ---
Date: 06/04/22 Patient seen and examined still with hyperkalemia. He reports that he has been told that his AV graft is malfunctioning. We will consult vascular to evaluate him while in house.
[2022-06-04] MEDS ORDERED: INSULIN REGULAR, HUMAN 100 UNITS/1 ML IV ONE (10:40)
[2022-06-04] MEDS ORDERED: CALCIUM GLUCONATE 1,000 MG in SODIUM CHLORIDE 0.9% 100 ML IV ONE (10:40)
--- NOTE | 2022-06-04 10:57 | Electrocardiograph Report ---
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
--- NOTE | 2022-06-04 12:25 | Consultation ---
History of Present Illness - Reason for Consult Consult date: 06/04/22 Complications of Dialysis Access Requesting physician: FEMI KLEIN - History of Present Illness The patient is a 71-year-old male with history of end-stage renal disease who had a creation of a left brachiocephalic arteriovenous fistula in August 2021. He presents to the hospital with hyperkalemia that persist despite hemodialysis being performed. The patient states he was told he had a malfunction of his access requiring possible intervention. He denies any pain or prolonged bleeding. He has no additional complaints at this time. Past History Past Medical History: dialysis, ESRD, heart failure, hypertension, renal failure, other (Yes (STAGE 4 WITH HEMODIALYSIS M/W/F)) Past Surgical History: Other (Creation of left brachiocephalic arteriovenous fistula) Social history: no significant social history Family history: hypertension Medications and Allergies Allergies Allergy/AdvReac Type Severity Reaction Status Date / Time tramadol AdvReac Vomiting Verified 06/04/22 05:30 Home Medications Medication Instructions Recorded Confirmed Last Taken Type NIFEdipine XL [Procardia Xl] 60 mg PO BID #30 tablet 06/16/21 06/04/22 05/29/22 Rx Cholecalciferol (Vitamin D3) 2 cap PO QDAY 06/30/21 06/04/22 05/29/22 History [Vitamin D3 5,000 UNIT] Cyanocobalamin (Vitamin B-12) 500 mcg SL QDAY 06/30/21 06/04/22 05/29/22 History [Vitamin B-12] AtorvaSTATin [Lipitor] 40 mg PO QHS 06/04/22 06/04/22 05/29/22 History Doxazosin [Cardura] 4 mg PO QDAY 06/04/22 06/04/22 05/21/22 History Active Meds: Active Medications Acetaminophen (Acetaminophen 325 Mg Tab) 650 mg PO Q4H PRN PRN Reason: Pain MILD(1-3)/Fever >100.5/TAVERAS Albuterol (Albuterol 2.5 Mg/3 Ml Nebu) 2.5 mg IH Q4HRT PRN PRN Reason: Shortness Of Breath Allopurinol (Allopurinol 100 Mg Tab) 100 mg PO MoWeFr MELLISA Calcitriol (Calcitriol 0.5 Mcg Cap) 0.5 mcg PO QDAY MELLISA Last Admin: 06/04/22 09:42 Dose: 0.5 mcg Cholecalciferol (Cholecalciferol (Vit D3) 5,000 Unit Tab) 10,000 unit PO QDAY [facility] Last Admin: 06/04/22 09:42 Dose: 10,000 unit Cyanocobalamin (Cyanocobalamin (Vit B-12) 1000 Mcg Tab) 500 mcg PO QDAY [facility] Last Admin: 06/04/22 09:41 Dose: 500 mcg Dextrose (Dextrose 50% In Water (25gm) 50 Ml Syringe) 25 ml IV Q30MIN [facility]; Protocol Stop: 06/05/22 10:01 Epoetin [place]-epbx (Epoetin [place]-Epbx 2,000 Unit/1 Ml Inj) 4,000 unit IV EM PRN PRN Reason: anemia Famotidine (Famotidine 10 Mg Tab) 10 mg PO BID [facility] Last Admin: 06/04/22 09:42 Dose: 10 mg Morphine Sulfate (Morphine 2 Mg/1 Ml Inj) 2 mg IV Q4H PRN PRN Reason: Pain, Moderate (4-6) Morphine Sulfate (Morphine 4 Mg/1 Ml Inj) 4 mg IV Q4H PRN PRN Reason: Pain , Severe (7-10) Multivitamins/Minerals (Calcium Carb/Vit D3/Minerals 600 Mg/800 Units Tab) 1 each PO BID [facility] Last Admin: 06/04/22 09:53 Dose: 1 each Nifedipine (Nifedipine Xl 60 Mg Tab) 60 mg PO BID [facility] Last Admin: 06/04/22 09:42 Dose: 60 mg Ondansetron HCl (Ondansetron 4 Mg/2 Ml Inj) 4 mg IV Q8H PRN PRN Reason: Nausea And Vomiting Sodium Chloride (Sodium Chloride 0.9% 10 Ml Flush Syringe) 10 ml IV BID [facility] Last Admin: 06/04/22 09:43 Dose: 10 ml Sodium Chloride (Sodium Chloride 0.9% 10 Ml Flush Syringe) 10 ml IV PRN PRN PRN Reason: LINE FLUSH Review of Systems All systems: negative Exam - Constitutional Vitals: Temp Pulse Resp BP Pulse Ox 98.4 F 76 16 144/85 99 06/04/22 07:34 06/04/22 08:40 06/04/22 08:40 06/04/22 05:27 06/04/22 08:50 General appearance: Present: no acute distress - Respiratory Respiratory effort: normal - Cardiovascular Rhythm: regular - Extremities Extremities: abnormal (Left arm AV fistula with pulsatility near the arterial inflow and cannulation zone, no pulse or thrill is felt near the outflow) - Abdominal General gastrointestinal: Present: deferred Male genitourinary: Present: deferred - Rectal Rectal Exam: deferred Results - Labs CBC & Chem 7: 06/03/22 21:33 06/04/22 08:00 Labs: Abnormal lab results 06/03/22 06/03/22 06/04/22 Range/Units 21:33 21:33 08:00 Hgb 11.3 L (11.8-15.2) gm/dl Hct 34.5 L (35.5-45.6) % [place] % (Auto) 9.4 H (0.0-7.3) % Potassium 7.8 H* 6.6 H* (3.6-5.0) mmol/L Carbon Dioxide 16 L 19 L (22-30) mmol/L BUN 90 H 74 H (9-20) mg/dL Creatinine 17.6 H 17.1 H (0.8-1.3) mg/dL Glucose 73 L (75-100) mg/dL Total Protein 8.5 H (6.3-8.2) g/dL Albumin 5.4 H (3.9-5) g/dL Assessment and Plan The patient is a 71-year-old male with history of end-stage renal disease who presents with hyperkalemia and complications of his arteriovenous access. Examination of the access is consistent with venous outflow stenosis versus occlusion. The patient requires a diagnostic fistulogram with possible intervention. I discussed the risk, benefits, and alternative procedures with the patient has expressed understanding and agrees to proceed. He will be made n.p.o. after midnight and plans for intervention tomorrow.
[2022-06-04 13:13] LABS: Calcium 8.8 mg/dL (8.4-10.2)
[2022-06-04] MEDS ORDERED: SODIUM CHLORIDE 0.9% 100 ML IV PRN (14:02)
[2022-06-05 05:46] LABS: Basophils % (Auto) 0.8 % (0.0-1.8); Eosinophils # (Auto) 0.2 K/mm3 (0.0-0.4); Eosinophils % (Auto) 3.8 % (0.0-4.3); Hematocrit 31.9 % (35.5-45.6); Hemoglobin 9.9 gm/dl (11.8-15.2); Lymphocytes # (Auto) 1.8 K/mm3 (1.2-5.4); Lymphocytes % (Auto) 34.4 % (13.4-35.0); Mean Corpuscular HGB Conc 31 % (32-34); Mean Corpuscular Volume 91 fl (84-94); Monocytes # (Auto) 0.7 K/mm3 (0.0-0.8); Monocytes % (Auto) 12.6 % (0.0-7.3); Platelet Count 130 K/mm3 (140-440); Red Blood Count 3.49 M/mm3 (3.65-5.03); Red Cell Distribution Width 14.8 % (13.2-15.2)
[2022-06-05 06:04] LABS: Calcium 8.1 mg/dL (8.4-10.2)
--- NOTE | 2022-06-05 08:33 | Progress Note ---
Assessment and Plan Assessment and plan: History of present illness: 71-year-old male with history of end-stage renal disease presents to the emergency department with concern that he may have elevated potassium, and he was notified that his potassium from dialysis was 7.0, yesterday. Patient's only complaints are crampy bilateral leg pain. Vital signs and physical exam are unremarkable. Chest x-ray shows no acute abnormalities. Patient's chemistry is remarkable for potassium of 7.8, BUN of 90, and creatinine of 17.9. Patient was given calcium chloride, dextrose, insulin, sodium bicarbonate, and nebulized albuterol. Kayexalate was also ordered. Nephrology was consulted, and patient is having stat dialysis. EKG is sinus rhythm at 71 with long MN interval, LVH with no hyperacute T waves and no ST-T wave changes concerning for infarct. Patient was admitted to telemetry bed for malfunctioning AV fistula Hospital course 06/05: Procedure planned today for today. Diagnostic fistulogram today with possible intervention by Vascular. Assessment and Plan: #Malfunctioning AV fistula - vascular surgery consulted - planned fistulogram 06/05. #ESRD on hemodialysis #Hyperkalemia - 6.6 on admission, kionex is ordered - correct with HD - nephrology consulted, will follow recs. #Anemia of chronic kidney disease - hgb stable #Essential Hypertension - 164/83 on admission, more controlled now - on procardial xl 60 mg po bid #Advance care planning Disease education conducted, care plan discussed, diagnoses discussed, prognosis discussed, patient is full code, patient acknowledges understanding and agree with care plan, discussed about patient clinical course and answered all questions to satisfaction. +30 minutes. +30 minutes. Time spent: +35 min CPT 67897 History Interval history: No acute overnight events. Off to pathology lab technician for fistulogram with vascular. Hospitalist Physical - Physical exam Narrative exam: General appearance: Present: no acute distress - Respiratory Respiratory effort: normal - Cardiovascular Rhythm: regular - Extremities Extremities: abnormal (Left arm AV fistula with pulsatility near the arterial inflow and cannulation zone, no pulse or thrill is felt near the outflow) - Abdominal General gastrointestinal: Present: deferred Male genitourinary: Present: deferred - Rectal Rectal Exam: deferred - Constitutional Vitals: Temp Pulse Resp BP Pulse Ox 98.3 F 71 18 133/66 96 06/05/22 07:22 06/05/22 07:22 06/05/22 07:22 06/05/22 07:22 06/05/22 07:22 General appearance: Present: no acute distress Results - Labs CBC & Chem 7: 06/05/22 05:03 06/05/22 05:03 Labs: Laboratory Last Values WBC 5.3 K/mm3 (4.5-11.0) 06/05/22 05:03 RBC 3.49 M/mm3 (3.65-5.03) L 06/05/22 05:03 Hgb 9.9 gm/dl (11.8-15.2) L 06/05/22 05:03 Hct 31.9 % (35.5-45.6) L 06/05/22 05:03 MCV 91 fl (84-94) 06/05/22 05:03 MCH 29 pg (28-32) 06/05/22 05:03 MCHC 31 % (32-34) L 06/05/22 05:03 RDW 14.8 % (13.2-15.2) 06/05/22 05:03 Plt Count 130 K/mm3 (140-440) L 06/05/22 05:03 Lymph % (Auto) 34.4 % (13.4-35.0) 06/05/22 05:03 Osborne % (Auto) 12.6 % (0.0-7.3) H 06/05/22 05:03 Eos % (Auto) 3.8 % (0.0-4.3) 06/05/22 05:03 Baso % (Auto) 0.8 % (0.0-1.8) 06/05/22 05:03 Lymph # (Auto) 1.8 K/mm3 (1.2-5.4) 06/05/22 05:03 Osborne # (Auto) 0.7 K/mm3 (0.0-0.8) 06/05/22 05:03 Eos # (Auto) 0.2 K/mm3 (0.0-0.4) 06/05/22 05:03 Baso # (Auto) 0.0 K/mm3 (0.0-0.1) 06/05/22 05:03 Seg Neutrophils % 48.4 % (40.0-70.0) 06/05/22 05:03 Seg Neutrophils # 2.6 K/mm3 (1.8-7.7) 06/05/22 05:03 Sodium 141 mmol/L (137-145) 06/05/22 05:03 Potassium 6.0 mmol/L (3.6-5.0) H 06/05/22 05:03 Chloride 100.4 mmol/L (98-107) 06/05/22 05:03 Carbon Dioxide 19 mmol/L (22-30) L 06/05/22 05:03 Anion Gap 28 mmol/L 06/05/22 05:03 BUN 84 mg/dL (9-20) H 06/05/22 05:03 Creatinine 17.2 mg/dL (0.8-1.3) H 06/05/22 05:03 Estimated GFR 3 ml/min 06/05/22 05:03 BUN/Creatinine Ratio 5 % 06/05/22 05:03 Glucose 75 mg/dL (75-100) 06/05/22 05:03 Calcium 8.1 mg/dL (8.4-10.2) L 06/05/22 05:03 Total Bilirubin 0.20 mg/dL (0.1-1.2) 06/03/22 21:33 AST 10 units/L (5-40) 06/03/22 21:33 ALT 9 units/L (7-56) 06/03/22 21:33 Alkaline Phosphatase 110 units/L (35-129) 06/03/22 21:33 Total Protein 8.5 g/dL (6.3-8.2) H 06/03/22 21:33 Albumin 5.4 g/dL (3.9-5) H 06/03/22 21:33 Albumin/Globulin Ratio 1.7 % 06/03/22 21:33 Nasal Screen MRSA (PCR) Negative (Negative) 06/04/22 06:30 Hepatitis A IgM Ab Non-reactive (NonReactive) 06/04/22 00:36 Hep Bs Antigen Non-reactive (Negative) 06/04/22 00:36 Hep B Core IgM Ab Non-reactive (NonReactive) 06/04/22 00:36 Hepatitis C Antibody Non-reactive (NonReactive) 06/04/22 00:36 Garcia/IV: Voiding Method Urinal Active Medications - Current Medications Current Medications: Generic Name Dose Route Start Last Admin Trade Name Freq PRN Reason Stop Dose Admin Acetaminophen 650 mg 06/04/22 01:58 Acetaminophen 325 Mg Tab PO Q4H PRN Pain MILD(1-3)/Fever >100.5/TAVERAS Albuterol 2.5 mg 06/04/22 09:00 Albuterol 2.5 Mg/3 Ml Nebu IH Q4HRT PRN Shortness Of Breath Allopurinol 100 mg 06/05/22 10:00 Allopurinol 100 Mg Tab PO MoWeFr MELLISA Calcitriol 0.5 mcg 06/04/22 10:00 06/04/22 09:42 Calcitriol 0.5 Mcg Cap PO 0.5 mcg QDAY MELLISA Administration Cholecalciferol 10,000 unit 06/04/22 10:00 06/04/22 09:42 Cholecalciferol (Vit D3) 5,000 Unit Tab PO 10,000 unit QDAY MELLISA Administration Cyanocobalamin 500 mcg 06/04/22 10:00 06/04/22 09:41 Cyanocobalamin (Vit B-12) 1000 Mcg Tab PO 500 mcg QDAY MELLISA Administration Dextrose 25 ml 06/04/22 10:00 Dextrose 50% In Water (25gm) 50 Ml Syringe IV 06/05/22 10:01 Q30MIN [facility] Protocol Epoetin [place]-epbx 4,000 unit 06/04/22 08:00 Epoetin [place]-Epbx 2,000 Unit/1 Ml Inj IV EM PRN anemia Famotidine 10 mg 06/04/22 10:00 06/04/22 21:46 Famotidine 10 Mg Tab PO 10 mg BID MELLISA Administration Sodium Chloride 100 mls @ 999 mls/hr 06/04/22 14:02 Nacl 0.9% IV EM PRN Hypotension Morphine Sulfate 2 mg 06/04/22 01:58 Morphine 2 Mg/1 Ml Inj IV Q4H PRN Pain, Moderate (4-6) Morphine Sulfate 4 mg 06/04/22 01:58 Morphine 4 Mg/1 Ml Inj IV Q4H PRN Pain , Severe (7-10) Multivitamins/Minerals 1 each 06/04/22 10:00 06/04/22 21:46 Calcium Carb/Vit D3/Minerals 600 Mg/800 Units Tab PO 1 each BID MELLISA Administration Nifedipine 60 mg 06/04/22 10:00 06/04/22 21:46 Nifedipine Xl 60 Mg Tab PO 60 mg BID MELLISA Administration Ondansetron HCl 4 mg 06/04/22 01:58 Ondansetron 4 Mg/2 Ml Inj IV Q8H PRN Nausea And Vomiting Sodium Chloride 10 ml 06/04/22 10:00 06/04/22 21:49 Sodium Chloride 0.9% 10 Ml Flush Syringe IV 10 ml BID MELLISA Administration Sodium Chloride 10 ml 06/04/22 01:58 Sodium Chloride 0.9% 10 Ml Flush Syringe IV PRN PRN LINE FLUSH Nutrition/Malnutrition Assess - Dietary Evaluation Nutrition/Malnutrition Findings: Nutrition Notes Start: 06/04/22 12:15 Freq: Status: Active Protocol: Document 06/04/22 12:15 MARIA ALEJANDRA (Rec: 06/04/22 12:25 MARIA ALEJANDRA [id number]) Nutrition Notes Need for Assessment generated from: MD Order,Education Initial or Follow up Brief Note Current Diagnosis CKD(stage I-IV),Hypertension Other Pertinent Diagnosis ESDRD+HD, AV-Graft Malfuction, CHF, Hyperkalemia. Current Diet Renal Diet (since B 06/04). Height 5 ft 11 in Weight 119.1 kg [place] Body Weight (kg) 78.18 BMI 36.6 Intake Prior to Admission Good Weight change and time frame Pt denies having loss body weight [employer]. Weight Status Obese Subjective/Other Information RD consult for nutrition education assessment. Pt's PO intake of meals has been Good (75-100%) and well tolerated, according to ADL notes. Pt is on Room Air, O2 saturation @ 97%, according to Vital Signs notes. Pt still in critical condition , not a candidate for Nutrition Education at the time, will assess feasibility on F/U. Percent of energy/protein needs met: Prescribed Renal Diet provides for energy/protein needs (2, 072 Kcal/77 g) during LOS. Nutrition Intervention Follow-Up By: 06/09/22 Additional Comments Nutrition education will be provided at F/U, if feasible. Continue monitoring food tolerance, %PO intake of meals , and BM.
[2022-06-05] MEDS ORDERED: WATER FOR INJ Sterile (PF) 10 ML ONE ×3 (10:22→13:32)
[2022-06-05] MEDS ORDERED: ALTEPLASE 2 MG INJ ONE ×3 (10:22→13:32)
[2022-06-05] MEDS ORDERED: SODIUM POLYSTYRENE 15 GM/60 ML ORAL LIQD PO NR (11:00)
[2022-06-05] MEDS: allopurinoL 100 MG TAB PO SCH (11:22)
[2022-06-05] MEDS: CALCITRIOL 0.5 MCG CAP PO SCH ×2 (11:22→15:38)
[2022-06-05] MEDS: CALCIUM CARB/VIT D3/MINERALS 600 MG/800 UNITS TAB PO SCH ×2 (11:22→22:07)
[2022-06-05] MEDS: FAMOTIDINE 10 MG TAB PO SCH ×2 (11:22→22:07)
[2022-06-05] MEDS: NIFEdipine XL 60 MG TAB PO SCH ×2 (11:22→22:07)
[2022-06-05] MEDS: CYANOCOBALAMIN (VIT B-12) 1000 MCG TAB PO SCH (11:22)
[2022-06-05] MEDS: CHOLECALCIFEROL (VIT D3) 5,000 UNIT TAB PO SCH (11:22)
[2022-06-05] MEDS ORDERED: HEPARIN/NS 5000 UNIT/500ML 1,000 ML IR ONE (11:37)
[2022-06-05] MEDS ORDERED: LIDOCAINE 1%/EPINEPHRINE 1:100,000 VIAL (20 ML) INFILTRATI ONE (11:38)
[2022-06-05] MEDS ORDERED: ceFAZolin/Water 2 GM/20 ML 2 GM/20 ML SYRINGE IV ONE (11:38)
[2022-06-05] MEDS: fentaNYL 100 MCG/2 ML INJ ONE ×4 (11:43→13:07)
[2022-06-05] MEDS: MIDAZOLAM 2 MG/2 ML INJ ONE ×4 (11:44→13:07)
[2022-06-05] MEDS: HEPARIN 10,000 UNITS/10 ML VIAL ONE ×3 (11:45→13:11)
[2022-06-05] MEDS ORDERED: SODIUM CHLORIDE 0.9% 500 ML 500 ML ONE (11:58)
[2022-06-05] MEDS ORDERED: ONDANSETRON 4 MG/2 ML INJ ONE (12:38)
[2022-06-05] MEDS ORDERED: METOCLOPRAMIDE 10 MG/2 ML INJ ONE ×2 (12:39→14:22)
[2022-06-05] MEDS ORDERED: HEPARIN/NS 5000 UNIT/500ML 500 ML IR ONE (13:12)
--- NOTE | 2022-06-05 13:45 | Progress Note ---
Assessment and Plan Assessment: ESRD on HD Anemia in CKD Hypertension Hyperkalemia Plan: Hemodialysis again today for Hyperkalemia after vascular interventon to Left AVF Patient undergoing vascular intervention this morning for AVF malfunction Kayexalate 30 gram po x 1 today Low potassium diet Fluid restriction of 1 liter per day Renally dose medications Strict I&O's daily Obtain daily weights Assess dialysis needs daily Plan of care reviewed by Dr. Becerra Subjective Date of service: 06/05/22 Principal diagnosis: ESRD Interval history: Patient off floor for surgery Objective - Vital Signs Vital signs: Vital Signs - 12hr 06/05/22 06/05/22 06/05/22 05:09 07:22 09:05 Temperature 98.4 F 98.3 F Pulse Rate 75 71 Respiratory 16 18 18 Rate Blood Pressure 123/62 133/66 O2 Sat by Pulse 97 96 98 Oximetry - Lab 06/05/22 05:03 06/05/22 05:03 Most recent lab results Calcium 8.1 mg/dL (8.4-10.2) L 06/05/22 05:03 Medications & Allergies - Medications Allergies/Adverse Reactions: Allergies tramadol Adverse Reaction (Verified 06/05/22 10:59) Vomiting Patient states that when he takes tramadol on an empty stomach, it makes him vomit Home Medications: Home Medications Medication Instructions Recorded Confirmed Last Taken Type Cholecalciferol (Vitamin D3) 1 cap PO QDAY 06/30/21 06/05/22 09/05/21 09:00 History [Vitamin D3 5,000 UNIT] Cyanocobalamin (Vitamin B-12) 500 mcg SL QDAY 06/30/21 06/05/22 09/05/21 09:00 History [Vitamin B-12] AtorvaSTATin [Lipitor] 40 mg PO QHS 06/04/22 06/05/22 Unknown History Multivitamin [Multiple Vitamins] 1 each PO QDAY 06/05/22 06/05/22 Unknown History Sodium Zirconium Cyclosilicate 10 gm PO QWEEK 06/05/22 06/05/22 Unknown History [Lokelma] calcitrioL [Rocaltrol] 0.5 mcg PO QDAY 06/05/22 06/05/22 Unknown History Active Medications: Generic Name Dose Route Start Last Admin Trade Name Freq PRN Reason Stop Dose Admin Acetaminophen 650 mg 06/04/22 01:58 Acetaminophen 325 Mg Tab PO Q4H PRN Pain MILD(1-3)/Fever >100.5/TAVERAS Albuterol 2.5 mg 06/04/22 09:00 Albuterol 2.5 Mg/3 Ml Nebu IH Q4HRT PRN Shortness Of Breath Allopurinol 100 mg 06/05/22 10:00 06/05/22 11:22 Allopurinol 100 Mg Tab PO Not Given MoWeFr [facility] Atorvastatin Calcium 40 mg 06/05/22 22:00 Atorvastatin 40 Mg Tab PO QHS [facility] Calcitriol 0.5 mcg 06/04/22 10:00 06/05/22 11:22 Calcitriol 0.5 Mcg Cap PO Not Given QDAY [facility] Calcitriol 0.5 mcg 06/05/22 14:00 Calcitriol 0.5 Mcg Cap PO QDAY [facility] Cholecalciferol 10,000 unit 06/04/22 10:00 06/05/22 11:22 Cholecalciferol (Vit D3) 5,000 Unit Tab PO Not Given QDAY [facility] Cyanocobalamin 500 mcg 06/04/22 10:00 06/05/22 11:22 Cyanocobalamin (Vit B-12) 1000 Mcg Tab PO Not Given QDAY [facility] Epoetin [place]-epbx 4,000 unit 06/04/22 08:00 Epoetin [place]-Epbx 2,000 Unit/1 Ml Inj IV EM PRN anemia Famotidine 10 mg 06/04/22 10:00 06/05/22 11:22 Famotidine 10 Mg Tab PO Not Given BID [facility] Sodium Chloride 100 mls @ 999 mls/hr 06/04/22 14:02 Nacl 0.9% IV EM PRN Hypotension Morphine Sulfate 2 mg 06/04/22 01:58 Morphine 2 Mg/1 Ml Inj IV Q4H PRN Pain, Moderate (4-6) Morphine Sulfate 4 mg 06/04/22 01:58 Morphine 4 Mg/1 Ml Inj IV Q4H PRN Pain , Severe (7-10) Multivitamins/Minerals 1 each 06/04/22 10:00 06/05/22 11:22 Calcium Carb/Vit D3/Minerals 600 Mg/800 Units Tab PO Not Given BID [facility] Nifedipine 60 mg 06/04/22 10:00 06/05/22 11:22 Nifedipine Xl 60 Mg Tab PO Not Given BID MELLISA Ondansetron HCl 4 mg 06/04/22 01:58 Ondansetron 4 Mg/2 Ml Inj IV Q8H PRN Nausea And Vomiting Sodium Chloride 10 ml 06/04/22 10:00 06/05/22 11:22 Sodium Chloride 0.9% 10 Ml Flush Syringe IV Not Given BID MELLISA Sodium Chloride 10 ml 06/04/22 01:58 Sodium Chloride 0.9% 10 Ml Flush Syringe IV PRN PRN LINE FLUSH Sodium Polystyrene Sulfonate 30 gm 06/05/22 11:00 Sodium Polystyrene 15 Gm/60 Ml Oral Liqd PO 06/05/22 16:00 ONCE NR
[2022-06-05] MEDS ORDERED: MIDAZOLAM 2 MG/2 ML INJ ONE (13:50)
[2022-06-05] MEDS ORDERED: fentaNYL 100 MCG/2 ML INJ ONE (13:50)
[2022-06-05] MEDS ORDERED: CLOPIDOGREL 300 MG TAB PO NR (14:38)
--- NOTE | 2022-06-05 14:38 | Operative Report ---
Operative Report Operative Report: EXAM: 1. Ultrasound-guided access of the left arm cephalic vein fistula, antegrade 2. Infusion of 2 mg of tPA in the cephalic vein fistula 3. Angioplasty of the entire cephalic vein with a 7 mm x 200 mm angioplasty balloon and select areas with 7 mm x 40 mm conquest balloon 4. Infusion of 4 mg of tPA in the cephalic vein fistula 5. Stenting of the distal cephalic vein, and mid cephalic vein with an 8 mm x 15 cm Viabahn and 8 mm x 10 cm Viabahn x2 with angioplasty with a 7 mm x 200 mm angioplasty balloon 6. AngioJet of the cephalic vein fistula with subsequent core cleaner thrombectomy of the cephalic vein fistula 7. Jasen thrombectomy of the cephalic vein fistula multiple times 8. Ultrasound-guided access of the left arm cephalic vein fistula, retrograde 9. Selection of the brachial artery in a retrograde fashion with angiography of the left upper extremity 10. Jasen thrombectomy of the cephalic vein fistula 11. Angioplasty of the peripheral cephalic vein fistula with a 6 mm x 40 mm angioplasty balloon 12. Jasen thrombectomy of the cephalic vein fistula 13. Angioplasty of the mid and peripheral cephalic vein with a 9 mm x 40 mm angioplasty balloon INDICATION: THROMBOSED LEFT ARM AV FISTULA WITH END-STAGE RENAL DISEASE. DATE: 06/05/2022 MEDICATIONS: Please refer to nursing documentation for complete list of medications and heparin administration. Although the patient was first given local, due to anxiety, moderate sedation was initiated. Patient has been n.p.o. since the night before. This was discussed with patient who agreed. VERSED AND FENTANYL TITRATED TO MODERATE SEDATION. THE PATIENT WAS MONITORED UNDER CONTINUOUS CARDIOPULMONARY MONITORING THROUGHOUT THE CASE. COMPLICATIONS: NONE IMMEDIATE ACQUISITION COST ESTIMATOR: SARAH TORREZ MD PROCEDURE: The procedure was discussed with the patient and the risks, benefits, and alternatives were discussed with the patient. Informed consent was obtained. The patient was initially prepped and draped in a sterile fashion in the recovery area. Probe was prepped and draped in a sterile fashion. Lidocaine was used to anesthetize the skin. Under ultrasound guidance, the AV graft was punctured with a needle to pointing towards the venous limb. 0.018 inch wire was advanced to the needle and this was exchanged for transitional dilator. Inner dilator and wire were removed and 2 mg of tPA was infused. The area was capped and then the site was held in place with Tegaderms. Once there was room for the patient in the procedural area, the patient was transported into the angiography suite in stable condition and placed on the angiographic table. The patient was prepped and draped in a sterile fashion. The previously placed sheath and Tegaderms were removed and site was cleaned with ChloraPrep. 0.035 inch Boyle wire was advanced through the transitional dilator. The dilator was exchanged for a 7 [place] short sheath. Angled catheter was advanced over the wire and the wire was advanced into the inferior vena cava under fluoroscopic guidance. Then the wire was removed and the Angled catheter was used to perform a pullback venogram. Digital subtraction venography was performed in the left brachiocephalic vein which demonstrated no central obstruction to flow. The left subclavian, innominate vein and SVC are patent. The catheter was pulled back until clot was encountered. Pullback venogram demonstrated a severely stenotic cephalic vein throughout its course until the midportion of the fistula. 4 mg of TPA were infused through the length of the clot to the sheath as the arterial anastomosis was manually compressed. Angled catheter and Boyle wire were negotiated into the inferior vena cava. Catheter was exchanged for an 7 mm x 200 cm balloon and the left entire cephalic vein was treated. There are some areas of 99% stenosis throughout the vein suggesting the poor quality of the vein. These were treated with a 7 mm x 40 mm conquest balloon as some of them would not break with a standard angioplasty balloon. Pullback venogram was again performed demonstrating extravasation of contrast in the treated cephalic vein. I realized I needed to reline most of the cephalic vein to attempt to salvage this fistula. 8 mm x 15 cm Viabahn and 8 mm x 10 cm Viabahn x 2 were used to stent the cephalic vein to the mid cephalic vein. AngioJet thrombectomy device was used multiple times through the venous limb. AngioJet device was then removed. The Jasen balloon was used to sweep from the sheath to the central veins. The arm was then punctured towards the anastomosis under ultrasound guidance. 0.018 inch wire was advanced through the needle and exchanged for transitional dilator. The inner dilator and wire were removed and a 0.035 inch Boyle wire was advanced to the transitional dilator. The dilator was exchanged for 6 [place] short sheath. The angled catheter was advanced over the 0.035 wire and the wire was advanced into the [place] brachial artery in a retrograde fashion. Digital subtraction angiography was performed which demonstrated patency of the brachial artery proximal and distal to the anastomosis with flow-limiting thrombus in the AV fistula. Jasen catheter was inflated and use to sweep the anastomosis multiple times, pulling the plug towards the venous limb. 6 mm x 40 mm angioplasty balloon was used to perform angioplasty of the arterial anastomosis, peripheral and perianastomotic cephalic vein. Blood was aspirated from both sheaths. Jasen catheter was exchanged for the angled catheter and digital subtraction angiography was performed. This demonstrated residual thrombus within the graft. Repeated AngioJet, Jasen thrombectomy push from the venous sheath, Jasen thrombectomy pulls from the arterial sheath, and repeated AngioJet thrombectomy was performed. 9 mm x 40 mm angioplasty balloons were used to perform angioplasty in the midportion of the cephalic vein. Ultimately, the brachial artery was selected again in a retrograde fashion and digital subtraction angiography demonstrated Patency of the entire AV fistula and stents There was a strong thrill. All the wires were removed. 3-0 Vicryl sutures were used to close the fistula access sites. Dermabond was applied. Pressure was held until hemostasis was ac hieved. The patient was then transferred to the outpatient recovery area. FINDINGS: Please see the procedure note for the findings. IMPRESSION: 1. Successful pharmacomechanical thrombectomy of the thrombosed left AV fistula 2. Successful peripheral dialysis access angioplasty and stenting.
[2022-06-06] MEDS ORDERED: SODIUM POLYSTYRENE 15 GM/60 ML ORAL LIQD PO ONE (07:00)
[2022-06-06] MEDS ORDERED: INSULIN REGULAR, HUMAN 100 UNITS/1 ML SUB-Q ONE (07:00)
[2022-06-06] MEDS ORDERED: SODIUM BICARB 8.4% 50 MEQ/50 ML SYRINGE IV ONE (07:00)
[2022-06-06] MEDS ORDERED: CALCIUM GLUCONATE 1,000 MG/NS 100 ML PREMIX IV ONE (07:00)
[2022-06-06] MEDS ORDERED: DEXTROSE 50% IN WATER (25GM) 50 ML SYRINGE IV ONE (07:00)
--- NOTE | 2022-06-06 08:02 | Progress Note ---
Assessment and Plan Assessment and plan: History of present illness: 71-year-old male with history of end-stage renal disease presents to the emergency department with concern that he may have elevated potassium, and he was notified that his potassium from dialysis was 7.0, yesterday. Patient's only complaints are crampy bilateral leg pain. Vital signs and physical exam are unremarkable. Chest x-ray shows no acute abnormalities. Patient's chemistry is remarkable for potassium of 7.8, BUN of 90, and creatinine of 17.9. Patient was given calcium chloride, dextrose, insulin, sodium bicarbonate, and nebulized albuterol. Kayexalate was also ordered. Nephrology was consulted, and patient is having stat dialysis. EKG is sinus rhythm at 71 with long FL interval, LVH with no hyperacute T waves and no ST-T wave changes concerning for infarct. Patient was admitted to telemetry bed for malfunctioning AV fistula Hospital course 06/05: Procedure planned today for today. Diagnostic fistulogram today with possible intervention by vascular. 06/06: S/p fistulogram with angioplasty by vascular. Patient recieved dialysis yesterday however there are still concerns about functional status of fistula. Will be re-eval by vascular. He may need a temp HD catheter if remains nonfunctional. K = 6.8, given kionex this AM. Hyperkalemia cocktail ordered. Assessment and Plan: #Malfunctioning AV fistula - vascular surgery consulted - s/p fistulogram and angioplasty on 06/05. #ESRD on hemodialysis #Hyperkalemia - 6.6 on admission, kionex is ordered - correct with HD - nephrology consulted, will follow recs. #Anemia of chronic kidney disease - hgb stable #Essential Hypertension - 164/83 on admission, more controlled now - on procardial xl 60 mg po bid #Hyperlipidemia - resume home statin #Advance care planning Disease education conducted, care plan discussed, diagnoses discussed, prognosis discussed, patient is full code, patient acknowledges understanding and agree with care plan, discussed about patient clinical course and answered all questions to satisfaction. +30 minutes. +30 minutes. Time spent: +35 min CPT 56886 History Interval history: No acute overnight events. No complaints on my encounter this AM. He discussed the functional status of his AV fistula. I also discussed the possibility he may need a temporary dialysis catheter in the interim. Patient was very resistant to this idea but I educated him on why this was important. Hospitalist Physical - Physical exam Narrative exam: General appearance: Present: no acute distress - Respiratory Respiratory effort: normal - Cardiovascular Rhythm: regular - Extremities Extremities: abnormal (Left arm AV fistula with pulsatility near the arterial inflow and cannulation zone, no pulse or thrill is felt near the outflow) - Abdominal General gastrointestinal: Present: deferred Male genitourinary: Present: deferred - Rectal Rectal Exam: deferred - Constitutional Vitals: Temp Pulse Resp BP Pulse Ox 98.5 F 81 20 118/69 97 06/06/22 03:35 06/06/22 03:35 06/06/22 03:35 06/06/22 03:35 06/06/22 03:35 General appearance: Present: no acute distress Results - Labs CBC & Chem 7: 06/05/22 05:03 06/06/22 04:29 Labs: Laboratory Last Values WBC 5.3 K/mm3 (4.5-11.0) 06/05/22 05:03 RBC 3.49 M/mm3 (3.65-5.03) L 06/05/22 05:03 Hgb 9.9 gm/dl (11.8-15.2) L 06/05/22 05:03 Hct 31.9 % (35.5-45.6) L 06/05/22 05:03 MCV 91 fl (84-94) 06/05/22 05:03 MCH 29 pg (28-32) 06/05/22 05:03 MCHC 31 % (32-34) L 06/05/22 05:03 RDW 14.8 % (13.2-15.2) 06/05/22 05:03 Plt Count 130 K/mm3 (140-440) L 06/05/22 05:03 Lymph % (Auto) 34.4 % (13.4-35.0) 06/05/22 05:03 Allen % (Auto) 12.6 % (0.0-7.3) H 06/05/22 05:03 Eos % (Auto) 3.8 % (0.0-4.3) 06/05/22 05:03 Baso % (Auto) 0.8 % (0.0-1.8) 06/05/22 05:03 Lymph # (Auto) 1.8 K/mm3 (1.2-5.4) 06/05/22 05:03 Allen # (Auto) 0.7 K/mm3 (0.0-0.8) 06/05/22 05:03 Eos # (Auto) 0.2 K/mm3 (0.0-0.4) 06/05/22 05:03 Baso # (Auto) 0.0 K/mm3 (0.0-0.1) 06/05/22 05:03 Seg Neutrophils % 48.4 % (40.0-70.0) 06/05/22 05:03 Seg Neutrophils # 2.6 K/mm3 (1.8-7.7) 06/05/22 05:03 Sodium 140 mmol/L (137-145) 06/06/22 04:29 Potassium 6.8 mmol/L (3.6-5.0) H* 06/06/22 04:29 Chloride 97.0 mmol/L (98-107) L 06/06/22 04:29 Carbon Dioxide 22 mmol/L (22-30) 06/06/22 04:29 Anion Gap 28 mmol/L 06/06/22 04:29 BUN 76 mg/dL (9-20) H 06/06/22 04:29 Creatinine 18.1 mg/dL (0.8-1.3) H 06/06/22 04:29 Estimated GFR 3 ml/min 06/06/22 04:29 BUN/Creatinine Ratio 4 % 06/06/22 04:29 Glucose 100 mg/dL (75-100) 06/06/22 04:29 Calcium 8.0 mg/dL (8.4-10.2) L 06/06/22 04:29 Total Bilirubin 0.20 mg/dL (0.1-1.2) 06/03/22 21:33 AST 10 units/L (5-40) 06/03/22 21:33 ALT 9 units/L (7-56) 06/03/22 21:33 Alkaline Phosphatase 110 units/L (35-129) 06/03/22 21:33 Total Protein 8.5 g/dL (6.3-8.2) H 06/03/22 21:33 Albumin 5.4 g/dL (3.9-5) H 06/03/22 21:33 Albumin/Globulin Ratio 1.7 % 06/03/22 21:33 Nasal Screen MRSA (PCR) Negative (Negative) 06/04/22 06:30 Hepatitis A IgM Ab Non-reactive (NonReactive) 06/04/22 00:36 Hep Bs Antigen Non-reactive (Negative) 06/04/22 00:36 Hep B Core IgM Ab Non-reactive (NonReactive) 06/04/22 00:36 Hepatitis C Antibody Non-reactive (NonReactive) 06/04/22 00:36 Garcia/IV: Voiding Method Urinal Active Medications - Current Medications Current Medications: Generic Name Dose Route Start Last Admin Trade Name Freq PRN Reason Stop Dose Admin Acetaminophen 650 mg 06/04/22 01:58 Acetaminophen 325 Mg Tab PO Q4H PRN Pain MILD(1-3)/Fever >100.5/TAVERAS Albuterol 2.5 mg 06/04/22 09:00 Albuterol 2.5 Mg/3 Ml Nebu IH Q4HRT PRN Shortness Of Breath Allopurinol 100 mg 06/05/22 10:00 06/05/22 11:22 Allopurinol 100 Mg Tab PO Not Given MoWeFr [facility] Atorvastatin Calcium 40 mg 06/05/22 22:00 06/05/22 22:07 Atorvastatin 40 Mg Tab PO 40 mg QHS MELLISA Administration Calcitriol 0.5 mcg 06/05/22 14:00 06/05/22 15:38 Calcitriol 0.5 Mcg Cap PO Not Given QDAY MELLISA Cholecalciferol 10,000 unit 06/04/22 10:00 06/05/22 11:22 Cholecalciferol (Vit D3) 5,000 Unit Tab PO Not Given QDAY MELLISA Clopidogrel Bisulfate 75 mg 06/06/22 10:00 Clopidogrel 75 Mg Tab PO QDAY MELLISA Cyanocobalamin 500 mcg 06/04/22 10:00 06/05/22 11:22 Cyanocobalamin (Vit B-12) 1000 Mcg Tab PO Not Given QDAY MELLISA Epoetin [place]-epbx 4,000 unit 06/04/22 08:00 Epoetin [place]-Epbx 2,000 Unit/1 Ml Inj IV EM PRN anemia Famotidine 10 mg 06/04/22 10:00 06/05/22 22:07 Famotidine 10 Mg Tab PO 10 mg BID MELLISA Administration Sodium Chloride 100 mls @ 999 mls/hr 06/04/22 14:02 Nacl 0.9% IV EM PRN Hypotension Morphine Sulfate 2 mg 06/04/22 01:58 Morphine 2 Mg/1 Ml Inj IV Q4H PRN Pain, Moderate (4-6) Morphine Sulfate 4 mg 06/04/22 01:58 06/05/22 19:38 Morphine 4 Mg/1 Ml Inj IV 4 mg Q4H PRN Administration Pain , Severe (7-10) Multivitamins/Minerals 1 each 06/04/22 10:00 06/05/22 22:07 Calcium Carb/Vit D3/Minerals 600 Mg/800 Units Tab PO 1 each BID MELLISA Administration Nifedipine 60 mg 06/04/22 10:00 06/05/22 22:07 Nifedipine Xl 60 Mg Tab PO 60 mg BID MELLISA Administration Ondansetron HCl 4 mg 06/04/22 01:58 Ondansetron 4 Mg/2 Ml Inj IV Q8H PRN Nausea And Vomiting Sodium Chloride 10 ml 06/04/22 10:00 06/05/22 22:12 Sodium Chloride 0.9% 10 Ml Flush Syringe IV 10 ml BID MELLISA Administration Sodium Chloride 10 ml 06/04/22 01:58 Sodium Chloride 0.9% 10 Ml Flush Syringe IV PRN PRN LINE FLUSH Nutrition/Malnutrition Assess - Dietary Evaluation Nutrition/Malnutrition Findings: Nutrition Notes Start: 06/04/22 12:15 Freq: Status: Active Protocol: Document 06/04/22 12:15 MARIA ALEJANDRA (Rec: 06/04/22 12:25 MARIA ALEJANDRA [id number]) Nutrition Notes Need for Assessment generated from: MD Order,Education Initial or Follow up Brief Note Current Diagnosis CKD(stage I-IV),Hypertension Other Pertinent Diagnosis ESDRD+HD, AV-Graft Malfuction, CHF, Hyperkalemia. Current Diet Renal Diet (since B 06/04). Height 5 ft 11 in Weight 119.1 kg [place] Body Weight (kg) 78.18 BMI 36.6 Intake Prior to Admission Good Weight change and time frame Pt denies having loss body weight [employer]. Weight Status Obese Subjective/Other Information RD consult for nutrition education assessment. Pt's PO intake of meals has been Good (75-100%) and well tolerated, according to ADL notes. Pt is on Room Air, O2 saturation @ 97%, according to Vital Signs notes. Pt still in critical condition , not a candidate for Nutrition Education at the time, will assess feasibility on F/U. Percent of energy/protein needs met: Prescribed Renal Diet provides for energy/protein needs (2, 072 Kcal/77 g) during LOS. Nutrition Intervention Follow-Up By: 06/09/22 Additional Comments Nutrition education will be provided at F/U, if feasible. Continue monitoring food tolerance, %PO intake of meals , and BM.
--- NOTE | 2022-06-06 09:06 | Progress Note ---
Assessment and Plan ESRD on HD Anemia in CKD HTN Hyperklaemia discussed with IR, remains to have poor clearance post fitulogram, Doppler to be done today and possible need for permcath HD today after IR eval hyperkalemia cocktail ordered. will assess dialysis needs daily STEFFANY with HD Renally dose meds Strict I&O Daily weight Subjective Date of service: 06/06/22 Principal diagnosis: ESRD Interval history: s/p fistulogram and HD yesterday Objective - Vital Signs Vital signs: Vital Signs - 12hr 06/05/22 06/06/22 06/06/22 22:00 00:11 03:35 Temperature 98.0 F 98.5 F Pulse Rate 90 81 Respiratory 18 20 Rate Blood Pressure 106/71 118/69 O2 Sat by Pulse 99 98 97 Oximetry 06/06/22 08:57 Temperature Pulse Rate Respiratory Rate Blood Pressure O2 Sat by Pulse 95 Oximetry - Lab 06/05/22 05:03 06/06/22 04:29 Most recent lab results Calcium 8.0 mg/dL (8.4-10.2) L 06/06/22 04:29 Medications & Allergies - Medications Allergies/Adverse Reactions: Allergies tramadol Adverse Reaction (Verified 06/05/22 10:59) Vomiting Patient states that when he takes tramadol on an empty stomach, it makes him vomit Home Medications: Home Medications Medication Instructions Recorded Confirmed Last Taken Type Cholecalciferol (Vitamin D3) 1 cap PO QDAY 06/30/21 06/05/22 09/05/21 09:00 Hi story [Vitamin D3 5,000 UNIT] Cyanocobalamin (Vitamin B-12) 500 mcg SL QDAY 06/30/21 06/05/22 09/05/21 09:00 History [Vitamin B-12] AtorvaSTATin [Lipitor] 40 mg PO QHS 06/04/22 06/05/22 Unknown History Multivitamin [Multiple Vitamins] 1 each PO QDAY 06/05/22 06/05/22 Unknown Histor y Sodium Zirconium Cyclosilicate 10 gm PO QWEEK 06/05/22 06/05/22 Unknown History [Lokelma] calcitrioL [Rocaltrol] 0.5 mcg PO QDAY 06/05/22 06/05/22 Unknown History Active Medications: Generic Name Dose Route Start Last Admin Trade Name Freq PRN Reason Stop Dose Admin Acetaminophen 650 mg 06/04/22 01:58 Acetaminophen 325 Mg Tab PO Q4H PRN Pain MILD(1-3)/Fever >100.5/TAVERAS Albuterol 2.5 mg 06/04/22 09:00 Albuterol 2.5 Mg/3 Ml Nebu IH Q4HRT PRN Shortness Of Breath Allopurinol 100 mg 06/05/22 10:00 06/05/22 11:22 Allopurinol 100 Mg Tab PO Not Given MoWeFr [facility] Atorvastatin Calcium 40 mg 06/05/22 22:00 06/05/22 22:07 Atorvastatin 40 Mg Tab PO 40 mg QHS MELLISA Administration Calcitriol 0.5 mcg 06/05/22 14:00 06/05/22 15:38 Calcitriol 0.5 Mcg Cap PO Not Given QDAY [facility] Cholecalciferol 10,000 unit 06/04/22 10:00 06/05/22 11:22 Cholecalciferol (Vit D3) 5,000 Unit Tab PO Not Given QDAY [facility] Clopidogrel Bisulfate 75 mg 06/06/22 10:00 Clopidogrel 75 Mg Tab PO QDAY [facility] Cyanocobalamin 500 mcg 06/04/22 10:00 06/05/22 11:22 Cyanocobalamin (Vit B-12) 1000 Mcg Tab PO Not Given QDAY [facility] Epoetin [place]-epbx 4,000 unit 06/04/22 08:00 Epoetin [place]-Epbx 2,000 Unit/1 Ml Inj IV EM PRN anemia Famotidine 10 mg 06/04/22 10:00 06/05/22 22:07 Famotidine 10 Mg Tab PO 10 mg BID MELLISA Administration Sodium Chloride 100 mls @ 999 mls/hr 06/04/22 14:02 Nacl 0.9% IV EM PRN Hypotension Morphine Sulfate 2 mg 06/04/22 01:58 Morphine 2 Mg/1 Ml Inj IV Q4H PRN Pain, Moderate (4-6) Morphine Sulfate 4 mg 06/04/22 01:58 06/05/22 19:38 Morphine 4 Mg/1 Ml Inj IV 4 mg Q4H PRN Administration Pain , Severe (7-10) Multivitamins/Minerals 1 each 06/04/22 10:00 06/05/22 22:07 Calcium Carb/Vit D3/Minerals 600 Mg/800 Units Tab PO 1 each BID MELLISA Administration Nifedipine 60 mg 06/04/22 10:00 06/05/22 22:07 Nifedipine Xl 60 Mg Tab PO 60 mg BID MELLISA Administration Ondansetron HCl 4 mg 06/04/22 01:58 Ondansetron 4 Mg/2 Ml Inj IV Q8H PRN Nausea And Vomiting Sodium Chloride 10 ml 06/04/22 10:00 06/05/22 22:12 Sodium Chloride 0.9% 10 Ml Flush Syringe IV 10 ml BID MELLISA Administration Sodium Chloride 10 ml 06/04/22 01:58 Sodium Chloride 0.9% 10 Ml Flush Syringe IV PRN PRN LINE FLUSH
[2022-06-06] MEDS ORDERED: INSULIN REGULAR, HUMAN 100 UNITS/1 ML IV NR (10:00)
[2022-06-06] MEDS ORDERED: CALCIUM GLUCONATE 1,000 MG in SODIUM CHLORIDE 0.9% 100 ML IV NR (10:00)
[2022-06-06] MEDS ORDERED: DEXTROSE 50% IN WATER (25GM) 50 ML SYRINGE IV SCH (10:00)
[2022-06-06] MEDS: CLOPIDOGREL 75 MG TAB PO SCH (10:31)
[2022-06-06] MEDS: FAMOTIDINE 10 MG TAB PO SCH ×2 (10:31→22:42)
[2022-06-06] MEDS: CALCITRIOL 0.5 MCG CAP PO SCH (10:31)
[2022-06-06] MEDS: CALCIUM CARB/VIT D3/MINERALS 600 MG/800 UNITS TAB PO SCH ×2 (10:31→22:42)
[2022-06-06] MEDS: NIFEdipine XL 60 MG TAB PO SCH ×2 (10:31→22:42)
[2022-06-06] MEDS: CYANOCOBALAMIN (VIT B-12) 1000 MCG TAB PO SCH (10:32)
[2022-06-06] MEDS: CHOLECALCIFEROL (VIT D3) 5,000 UNIT TAB PO SCH (10:33)
[2022-06-06] MEDS: SODIUM POLYSTYRENE 15 GM/60 ML ORAL LIQD PO NR ×2 (10:34→10:35)
[2022-06-06] MEDS ORDERED: LIDOCAINE (2%) 20 MG/1 ML VIAL 50 ML MDV INFILTRATI ONE (13:00)
[2022-06-06] MEDS ORDERED: HEPARIN/NS 5000 UNIT/500ML 500 ML IR ONE (13:00)
[2022-06-06] MEDS ORDERED: SODIUM CHLORIDE 0.9% 250ML 250 ML ONE (13:06)
--- NOTE | 2022-06-06 13:07 | Vascular Lab Report ---
VL hemodialysis access HISTORY: Left upper extremity AV fistula evaluation, status post AV fistula declot yesterday. TECHNIQUE: Grayscale ultrasound with color and spectral Doppler imaging. FINDINGS: Left brachial artery velocity: 1 27 cm/s. AV fistula Inflow: 133 cm/s. Flow velocities at the left upper extremity AV fistula at the antecubital anastomosis measures 495 cm /s. Flow velocities in the proximal, mid and distal AV fistula measure 106, 312 and 247 cm/s respectively . Flow velocities at the left axilla measure 135 cm/s. Flow velocity in the left subclavian vein measures 95 cm/s. Volume of flow measures 384-499 mL/m. IMPRESSION: Focal areas of stenosis are noted in the left upper extremity AV fistula in the antecubital area and mid biceps area. Signer Name: Lang Mcdermott Jr, MD Signed: 06/06/2022 1:03 PM Workstation Name: [id number]
[2022-06-06] MEDS: LIDOCAINE 1%/EPINEPHRINE 1:100,000 VIAL (20 ML) INFILTRATI ONE ×2 (13:21→13:33)
[2022-06-06] MEDS: HEPARIN 10,000 UNITS/10 ML VIAL ONE ×3 (13:22→22:43)
--- NOTE | 2022-06-06 13:44 | Operative Report ---
Operative Report Operative Report: EXAM: 1. Ultrasound-guided puncture of the right internal jugular vein 2. Fluoroscopic-guided placement of a right internal jugular nontunneled noncuffed hemodialysis catheter. DATE: 06/06/2022 INDICATION: End-stage renal disease requiring requiring hemodialysis. MEDICATIONS: Please see nursing report for full details. DEVICES: 15 cm triple lumen hemodialysis catheter [employer]IP[employer] PO[employer] INSPECTOR: SARAH TORREZ MD CONTRAST: None PROCEDURE: The risks, benefits, and alternatives were discussed and informed consent was obtained. The patient was transported to the angiography suite in satisfactory/stable condition and was transported onto the angiography table. The patient's right internal jugular vein was assessed with ultrasound and determined to be patent prior to procedure. The patient was prepped and draped in a sterile fashion. The puncture site was anesthetized. The right internal jugular vein was patent on ultrasound. Under sonographic guidance, the right internal jugular vein was punctured with a 21-gauge micropuncture needle and a 0.018 inch wire was advanced through the needle. Needle was exchanged for transitional dilator. The inner dilator and wire was removed and a 0.035 inch wire was advanced through the transitional dilator into the inferior vena cava. Over the 0.035 inch wire, serial dilatation was performed. The catheter was advanced over the wire and positioned centrally under fluoroscopic guidance. 2-0 silk suture was used to secure the catheter. The dialysis lumens of the catheter was charged with heparin 1000 units/mL space. The central lumen was charged with saline. Caps applied. Biopatch and sterile dressing applied. The patient was transferred from the angiography suite back to the floor in stable condition. FINDINGS: 1. Excellent flow was obtained through the dialysis catheter with 20 mL syringes. 2. The catheter tip is in the right atrium. IMPRESSION: 1. Successful sonographically and fluoroscopically guided placement of a right internal jugular nontunneled noncuffed hemodialysis catheter.
[2022-06-06] MEDS ORDERED: SODIUM CHLORIDE 0.9% 100 ML IV PRN ×2 (15:40→16:00)
[2022-06-06] MEDS ORDERED: EPOETIN ALFA-EPBX 10,000 UNIT/1 ML VIAL IV PRN (17:00)
--- NOTE | 2022-06-06 17:49 | Electrocardiograph Report ---
[facility] Test Date: 2022-06-06 Test Time: 07:32:50 Pat Name: SHANA MARSH Department: Room: A451 1 Gender: M [employer]: EVE : 1950 Requested By: LON MCGEE Order Number: [id number] Reading MD: Rakesh Mireles Measurements Intervals [place] Rate: 72 P: 10 AR: 230 QRS: -35 QRSD: 94 T: 57 QT: 406 QTc: 445 Interpretive Statements Sinus rhythm Prolonged AR interval Left axis deviation Compared to ECG 06/04/2022 00:06:47 No significant change Electronically Signed On 06-06-2022 17:48:54 EDT by Rakesh Mireles
[2022-06-06 21:43] LABS: Calcium 8.5 mg/dL (8.4-10.2)
--- NOTE | 2022-06-07 08:02 | Progress Note ---
Assessment and Plan Assessment and plan: History of present illness: 71-year-old male with history of end-stage renal disease presents to the emergency department with concern that he may have elevated potassium, and he was notified that his potassium from dialysis was 7.0, yesterday. Patient's only complaints are crampy bilateral leg pain. Vital signs and physical exam are unremarkable. Chest x-ray shows no acute abnormalities. Patient's chemistry is remarkable for potassium of 7.8, BUN of 90, and creatinine of 17.9. Patient was given calcium chloride, dextrose, insulin, sodium bicarbonate, and nebulized albuterol. Kayexalate was also ordered. Nephrology was consulted, and patient is having stat dialysis. EKG is sinus rhythm at 71 with long [place] interval, LVH with no hyperacute T waves and no ST-T wave changes concerning for infarct. Patient was admitted to telemetry bed for malfunctioning AV fistula Hospital course 06/05: Procedure planned today for today. Diagnostic fistulogram today with possible intervention by vascular. 06/06: S/p fistulogram with angioplasty by vascular. Patient recieved dialysis yesterday however there are still concerns about functional status of fistula. Will be re-eval by vascular. He may need a temp HD catheter if remains nonfunctional. K = 6.8, given kionex this AM. Hyperkalemia cocktail ordered. 06/07: HD catheter placed. Electrolytes improved, K=4.7 this Am. Will follow nephrology plans for HD. NPO for procedure today with vascular. Assessment and Plan: #Malfunctioning AV fistula POA - vascular surgery consulted - s/p fistulogram and thrombectomy/angioplasty on 06/05. - s/p HD catheter placement on 06/06. -will follow vascular plan and findings from procedure today. #ESRD on hemodialysis #Hyperkalemia - 6.6 on admission, kionex is ordered - correct with HD - nephrology consulted, will follow recs. #Anemia of chronic kidney disease - hgb stable #Essential Hypertension - 164/83 on admission, more controlled now - on procardial xl 60 mg po bid #Hyperlipidemia - resume home statin #Advance care planning Disease education conducted, care plan discussed, diagnoses discussed, prognosis discussed, patient is full code, patient acknowledges understanding and agree with care plan, discussed about patient clinical course and answered all questions to satisfaction. +30 minutes. +30 minutes. Time spent: +35 min CPT 34299 History Interval history: Resting comfortably on a.m. encounter. No acute complaints. Tolerated HD catheter placement and subsequent hemodialysis well. No complaints of headache, nausea, vomiting. No bleeding noted around catheter site Hospitalist Physical - Physical exam Narrative exam: General appearance: Present: no acute distress - Respiratory Respiratory effort: normal, CTA & P, on room air HEENT: Right neck HD catheter. - Cardiovascular Rhythm: regular - Extremities Extremities: abnormal (Left arm AV fistula with pulsatility near the arterial inflow and cannulation zone, no pulse or thrill is felt near the outflow) - Abdominal General gastrointestinal: Present: deferred Male genitourinary: Present: deferred Psych: Appropriate mood and affect - Rectal Rectal Exam: deferred - Constitutional Vitals: Temp Pulse Resp BP Pulse Ox 98.9 F 88 18 114/68 99 06/07/22 03:26 06/07/22 03:26 06/07/22 03:26 06/07/22 03:06/07/22 03:26 General appearance: Present: no acute distress Results - Labs CBC & Chem 7: 06/05/22 05:03 06/07/22 05:43 Labs: Laboratory Last Values WBC 5.3 K/mm3 (4.5-11.0) 06/05/22 05:03 RBC 3.49 M/mm3 (3.65-5.03) L 06/05/22 05:03 Hgb 9.9 gm/dl (11.8-15.2) L 06/05/22 05:03 Hct 31.9 % (35.5-45.6) L 06/05/22 05:03 MCV 91 fl (84-94) 06/05/22 05:03 MCH 29 pg (28-32) 06/05/22 05:03 MCHC 31 % (32-34) L 06/05/22 05:03 RDW 14.8 % (13.2-15.2) 06/05/22 05:03 Plt Count 130 K/mm3 (140-440) L 06/05/22 05:03 Lymph % (Auto) 34.4 % (13.4-35.0) 06/05/22 05:03 [place] % (Auto) 12.6 % (0.0-7.3) H 06/05/22 05:03 Eos % (Auto) 3.8 % (0.0-4.3) 06/05/22 05:03 Baso % (Auto) 0.8 % (0.0-1.8) 06/05/22 05:03 Lymph # (Auto) 1.8 K/mm3 (1.2-5.4) 06/05/22 05:03 [place] # (Auto) 0.7 K/mm3 (0.0-0.8) 06/05/22 05:03 Eos # (Auto) 0.2 K/mm3 (0.0-0.4) 06/05/22 05:03 Baso # (Auto) 0.0 K/mm3 (0.0-0.1) 06/05/22 05:03 Seg Neutrophils % 48.4 % (40.0-70.0) 06/05/22 05:03 Seg Neutrophils # 2.6 K/mm3 (1.8-7.7) 06/05/22 05:03 Sodium 139 mmol/L (137-145) 06/07/22 05:43 Potassium 4.7 mmol/L (3.6-5.0) 06/07/22 05:43 Chloride 94.3 mmol/L (98-107) L 06/07/22 05:43 Carbon Dioxide 27 mmol/L (22-30) 06/07/22 05:43 Anion Gap 22 mmol/L 06/07/22 05:43 BUN 51 mg/dL (9-20) H 06/07/22 05:43 Creatinine 14.1 mg/dL (0.8-1.3) H 06/07/22 05:43 Estimated GFR 4 ml/min 06/07/22 05:43 BUN/Creatinine Ratio 4 % 06/07/22 05:43 Glucose 96 mg/dL (75-100) 06/07/22 05:43 Calcium 8.0 mg/dL (8.4-10.2) L 06/07/22 05:43 Total Bilirubin 0.20 mg/dL (0.1-1.2) 06/03/22 21:33 AST 10 units/L (5-40) 06/03/22 21:33 ALT 9 units/L (7-56) 06/03/22 21:33 Alkaline Phosphatase 110 units/L (35-129) 06/03/22 21:33 Total Protein 8.5 g/dL (6.3-8.2) H 06/03/22 21:33 Albumin 5.4 g/dL (3.9-5) H 06/03/22 21:33 Albumin/Globulin Ratio 1.7 % 06/03/22 21:33 Nasal Screen MRSA (PCR) Negative (Negative) 06/04/22 06:30 Hepatitis A IgM Ab Non-reactive (NonReactive) 06/04/22 00:36 Hep Bs Antigen Non-reactive (Negative) 06/04/22 00:36 Hep B Core IgM Ab Non-reactive (NonReactive) 06/04/22 00:36 Hepatitis C Antibody Non-reactive (NonReactive) 06/04/22 00:36 Garcia/IV: Voiding Method Toilet Active Medications - Current Medications Current Medications: Generic Name Dose Route Start Last Admin Trade Name Freq PRN Reason Stop Dose Admin Acetaminophen 650 mg 06/04/22 01:58 Acetaminophen 325 Mg Tab PO Q4H PRN Pain MILD(1-3)/Fever >100.5/TAVERAS Albuterol 2.5 mg 06/04/22 09:00 Albuterol 2.5 Mg/3 Ml Nebu IH Q4HRT PRN Shortness Of Breath Allopurinol 100 mg 06/05/22 10:00 06/05/22 11:22 [facility]opurin[facility] 100 Mg Tab [facility] Calcium 40 mg 06/05/22 22:00 06/06/22 22:42 Atorvastatin 40 Mg Tab PO 40 mg QHS MELLISA Administration Calcitriol 0.5 mcg 06/05/22 14:00 06/06/22 10:31 Calcitriol 0.5 Mcg Cap PO 0.5 mcg QDAY MELLISA Administration Cholecalciferol 10,000 unit 06/04/22 10:00 06/06/22 10:33 Cholecalciferol (Vit D3) 5,000 Unit Tab PO 10,000 unit QDAY MELLISA Administration Clopidogrel Bisulfate 75 mg 06/06/22 10:00 06/06/22 10:31 Clopidogrel 75 Mg Tab PO 75 mg QDAY MELLISA Administration Cyanocobalamin 500 mcg 06/04/22 10:00 06/06/22 10:32 Cyanocobalamin (Vit B-12) 1000 Mcg Tab PO 500 mcg QDAY MELLISA Administration Dextrose 25 ml 06/06/22 10:00 06/06/22 12:39 Dextrose 50% In Water (25gm) 50 Ml Syringe IV 06/07/22 10:01 25 ml Q30MIN MELLISA Administration Protocol Epoetin [place]-epbx 10,000 unit 06/06/22 17:00 06/06/22 17:38 Epoetin [place]-Epbx 10,000 Unit/1 Ml Vial IV 10,000 unit EM PRN Administration hemodialysis Famotidine 10 mg 06/04/22 10:00 06/06/22 22:42 Famotidine 10 Mg Tab PO 10 mg BID MELLISA Administration Sodium Chloride 100 mls @ 999 mls/hr 06/06/22 16:00 Nacl 0.9% IV EM PRN Hypotension Morphine Sulfate 2 mg 06/04/22 01:58 06/06/22 22:51 Morphine 2 Mg/1 Ml Inj IV 2 mg Q4H PRN Administration Pain, Moderate (4-6) Morphine Sulfate 4 mg 06/04/22 01:58 06/05/22 19:38 Morphine 4 Mg/1 Ml Inj IV 4 mg Q4H PRN Administration Pain , Severe (7-10) Multivitamins/Minerals 1 each 06/04/22 10:00 06/06/22 22:42 Calcium Carb/Vit D3/Minerals 600 Mg/800 Units Tab PO 1 each BID MELLISA Administration Nifedipine 60 mg 06/04/22 10:00 06/06/22 22:42 Nifedipine Xl 60 Mg Tab PO 60 mg BID MELLISA Administration Ondansetron HCl 4 mg 06/04/22 01:58 Ondansetron 4 Mg/2 Ml Inj IV Q8H PRN Nausea And Vomiting Sodium Chloride 10 ml 06/04/22 10:00 06/06/22 22:44 Sodium Chloride 0.9% 10 Ml Flush Syringe IV 10 ml BID MELLISA Administration Sodium Chloride 10 ml 06/04/22 01:58 Sodium Chloride 0.9% 10 Ml Flush Syringe IV PRN PRN LINE FLUSH Nutrition/Malnutrition Assess - Dietary Evaluation Nutrition/Malnutrition Findings: Nutrition Notes Start: 06/04/22 12:15 Freq: Status: Active Protocol: Document 06/04/22 12:15 MARIA ALEJANDRA (Rec: 06/04/22 12:25 MARIA ALEJANDRA [id number]) Nutrition Notes Need for Assessment generated from: MD Order,Education Initial or Follow up Brief Note Current Diagnosis CKD(stage I-IV),Hypertension Other Pertinent Diagnosis ESDRD+HD, AV-Graft Malfuction, CHF, Hyperkalemia. Current Diet Renal Diet (since B 06/04). Height 5 ft 11 in Weight 119.1 kg Freedom Body Weight (kg) 78.18 BMI 36.6 Intake Prior to Admission Good Weight change and time frame Pt denies having loss body weight PIT RECORDER. Weight Status Obese Subjective/Other Information RD consult for nutrition education assessment. Pt's PO intake of meals has been Good (75-100%) and well tolerated, according to ADL notes. Pt is on Room Air, O2 saturation @ 97%, according to Vital Signs notes. Pt still in critical condition , not a candidate for Nutrition Education at the time, will assess feasibility on F/U. Percent of energy/protein needs met: Prescribed Renal Diet provides for energy/protein needs (2, 072 Kcal/77 g) during LOS. Nutrition Intervention Follow-Up By: 06/09/22 Additional Comments Nutrition education will be provided at F/U, if feasible. Continue monitoring food tolerance, %PO intake of meals , and BM.
[2022-06-07] MEDS: CYANOCOBALAMIN (VIT B-12) 1000 MCG TAB PO SCH (10:43)
[2022-06-07] MEDS: CALCIUM CARB/VIT D3/MINERALS 600 MG/800 UNITS TAB PO SCH ×2 (10:44→21:32)
[2022-06-07] MEDS: CALCITRIOL 0.5 MCG CAP PO SCH (10:44)
[2022-06-07] MEDS: allopurinoL 100 MG TAB PO SCH (10:44)
[2022-06-07] MEDS: FAMOTIDINE 10 MG TAB PO SCH ×2 (10:44→21:32)
[2022-06-07] MEDS: CLOPIDOGREL 75 MG TAB PO SCH (10:44)
[2022-06-07] MEDS: NIFEdipine XL 60 MG TAB PO SCH ×2 (10:45→21:31)
[2022-06-07] MEDS: CHOLECALCIFEROL (VIT D3) 5,000 UNIT TAB PO SCH (10:45)
--- NOTE | 2022-06-07 10:48 | Progress Note ---
Assessment and Plan Assessment: ESRD on Hemodialysis Anemia in CKD Hypertension Hyperkalemia Plan: Hemodialysis today for UF and clearance via right IJ vasc cath On M,, schedule and as needed S/P vasc cath placement by IR on 06/06/22 S/P Left AVF thrombectomy and Angioplasty by IR on 06/05/22 Will need perm-cath placement prior to discharge if Left AVF remains malfunctioned Fluid restriction of 1 liter per day Low potassium diet Renally dose medications Strict I&O's daily Obtain daily weights Assess dialysis needs daily Goes to [facility] outpatiently Plan of care reviewed by Dr. Becerra Subjective Date of service: 06/07/22 Principal diagnosis: ESRD Interval history: Patient seen lying in bed. PT at bedside. Objective - Vital Signs Vital signs: Vital Signs - 12hr 06/07/22 06/07/22 06/07/22 00:00 03:26 07:29 Temperature 98.5 F 98.9 F 98.4 F Pulse Rate 98 H 88 88 Respiratory 19 18 18 Rate Blood Pressure 107/66 114/68 112/65 O2 Sat by Pulse 96 99 96 Oximetry - General Appearance General appearance: well-developed, appears stated age EENT: ATNC, PERRL, hearing intact, vision intact Neck: no JVD, supple Respiratory: Present: Decreased Breath Sounds Cardiology: S1S2 Gastrointestinal: normoactive bowel sounds Integumentary: warm and dry Neurologic: alert and oriented x3 Musculoskeletal: other (Left arm swollen at AVF site- s/p vascular procedure) - Lab 06/05/22 05:03 06/07/22 05:43 Most recent lab results Calcium 8.0 mg/dL (8.4-10.2) L 06/07/22 05:43 Medications & Allergies - Medications Allergies/Adverse Reactions: Allergies tramadol Adverse Reaction (Verified 06/05/22 10:59) Vomiting Patient states that when he takes tramadol on an empty stomach, it makes him vomit Home Medications: Home Medications Medication Instructions Recorded Confirmed Last Taken Type Cholecalciferol (Vitamin D3) 1 cap PO QDAY 06/30/21 06/05/22 09/05/21 09:00 History [Vitamin D3 5,000 UNIT] Cyanocobalamin (Vitamin B-12) 500 mcg SL QDAY 06/30/21 06/05/22 09/05/21 09:00 History [Vitamin B-12] AtorvaSTATin [Lipitor] 40 mg PO QHS 06/04/22 06/05/22 Unknown History Multivitamin [Multiple Vitamins] 1 each PO QDAY 06/05/22 06/05/22 Unknown History Sodium Zirconium Cyclosilicate 10 gm PO QWEEK 06/05/22 06/05/22 Unknown History [Lokelma] calcitrioL [Rocaltrol] 0.5 mcg PO QDAY 06/05/22 06/05/22 Unknown History Active Medications: Generic Name Dose Route Start Last Admin Trade Name Freq PRN Reason Stop Dose Admin Acetaminophen 650 mg 06/04/22 01:58 Acetaminophen 325 Mg Tab PO Q4H PRN Pain MILD(1-3)/Fever >100.5/TAVERAS Albuterol 2.5 mg 06/04/22 09:00 Albuterol 2.5 Mg/3 Ml Nebu IH Q4HRT PRN Shortness Of Breath Allopurinol 100 mg 06/05/22 10:00 06/07/22 10:44 Allopurinol 100 Mg Tab PO 100 mg MoWeFr MELLISA Administration Atorvastatin Calcium 40 mg 06/05/22 22:00 06/06/22 22:42 Atorvastatin 40 Mg Tab PO 40 mg QHS MELLISA Administration Calcitriol 0.5 mcg 06/05/22 14:00 06/07/22 10:44 Calcitriol 0.5 Mcg Cap PO 0.5 mcg QDAY MELLISA Administration Cholecalciferol 10,000 unit 06/04/22 10:00 06/07/22 10:45 Cholecalciferol (Vit D3) 5,000 Unit Tab PO 10,000 unit QDAY MELLISA Administration Clopidogrel Bisulfate 75 mg 06/06/22 10:00 06/07/22 10:44 Clopidogrel 75 Mg Tab PO 75 mg QDAY MELLISA Administration Cyanocobalamin 500 mcg 06/04/22 10:00 06/07/22 10:43 Cyanocobalamin (Vit B-12) 1000 Mcg Tab PO 500 mcg QDAY MELLISA Administration Epoetin [place]-epbx 10,000 unit 06/06/22 17:00 06/06/22 17:38 Epoetin [place]-Epbx 10,000 Unit/1 Ml Vial IV 10,000 unit EM PRN Administration hemodialysis Famotidine 10 mg 06/04/22 10:00 06/07/22 10:44 Famotidine 10 Mg Tab PO 10 mg BID MELLISA Administration Sodium Chloride 100 mls @ 999 mls/hr 06/06/22 16:00 Nacl 0.9% IV EM PRN Hypotension Morphine Sulfate 2 mg 06/04/22 01:58 06/06/22 22:51 Morphine 2 Mg/1 Ml Inj IV 2 mg Q4H PRN Administration Pain, Moderate (4-6) Morphine Sulfate 4 mg 06/04/22 01:58 06/05/22 19:38 Morphine 4 Mg/1 Ml Inj IV 4 mg Q4H PRN Administration Pain , Severe (7-10) Multivitamins/Minerals 1 each 06/04/22 10:00 06/07/22 10:44 Calcium Carb/Vit D3/Minerals 600 Mg/800 Units Tab PO 1 each BID MELLISA Administration Nifedipine 60 mg 06/04/22 10:00 06/07/22 10:45 Nifedipine Xl 60 Mg Tab PO Not Given BID MELLISA Ondansetron HCl 4 mg 06/04/22 01:58 Ondansetron 4 Mg/2 Ml Inj IV Q8H PRN Nausea And Vomiting Sodium Chloride 10 ml 06/04/22 10:00 06/07/22 10:45 Sodium Chloride 0.9% 10 Ml Flush Syringe IV 10 ml BID MELLISA Administration Sodium Chloride 10 ml 06/04/22 01:58 Sodium Chloride 0.9% 10 Ml Flush Syringe IV PRN PRN LINE FLUSH
[2022-06-07] MEDS ORDERED: SODIUM CHLORIDE 0.9% 100 ML IV PRN (12:00)
[2022-06-07] MEDS ORDERED: HEPARIN/NS 5000 UNIT/500ML 1,000 ML IR ONE (14:47)
[2022-06-07] MEDS: fentaNYL 100 MCG/2 ML INJ ONE ×3 (14:51→15:27)
[2022-06-07] MEDS: MIDAZOLAM 2 MG/2 ML INJ ONE ×3 (14:52→15:28)
[2022-06-07] MEDS: LIDOCAINE (2%) 20 MG/1 ML VIAL 20 ML MDV INFILTRATI ONE ×2 (14:52→15:17)
[2022-06-07] MEDS: HEPARIN 10,000 UNITS/10 ML VIAL ONE ×2 (14:52→21:06)
--- NOTE | 2022-06-07 20:07 | Operative Report ---
Operative Report Operative Report: Date of Procedure: 06/07/2022 Pre-operative Diagnosis: Complications of Dialysis Access Post-operative Diagnosis: Same Procedure(s): 1. Access Left Arm Arteriovenous Fistula with 7 Uzbek Sheath Venous 2. Diagnostic Fistulagram with Central Venogram 3. Angioplasty of Left Arm Arteriovenous Fistula with 12 x 40 Conquest Balloon 4. Percutaneous Mechanical Thrombectomy of Left Arm AV Fistula with Balloon Maceration 5. Radiologic Supervision with Interpretation 6. Local/Monitored Moderate Sedation (Total Anesthesia Time: 20 Minutes) Surgeon: Sudhir Ornelas M.D. Tiller Worker: [place] Anesthesia: Local/Monitored Moderate Sedation Total Anesthesia Time: 20 Minutes EBL: Minimal Counts: Correct Complications: None Condition: Stable Specimen: None Indication: The patient is a 71-year-old male with history of end-stage renal disease who recently underwent percutaneous mechanical thrombectomy of his left arm AV fistula. Despite regaining patency of the fistula there was difficulty accessing the fistula for dialysis. He therefore underwent placement of a Vas- Cath. He is in need of a diagnostic fistulogram with possible intervention to improve the flow in the fistula leading to ease of access. He was given the risk, benefits, and alternative procedures and consented to the procedure. Angiographic Findings: The diagnostic fistulogram revealed thrombus within the cannulation zone of the fistula however it was patent. The thrombus burden resulted in approximate 50% stenosis. The venous outflow of the fistula was patent without evidence of flow-limiting stenosis. The central venous system was patent without evidence of flow-limiting stenosis. After intervention the fistula was patent with less than 15% residual stenosis or significant residual thrombus. Description of Procedure: The patient was brought to the Lead Sql Developer and laid in supine position. After timeout was performed his left arm was prepped and draped in normal sterile fashion. Lidocaine was used anesthetize the skin and soft tissue overlying the fistula, near the arterial inflow, and a 21-gauge micropuncture needle was used to access the fistula towards the venous outflow. A 0.018 micropuncture wire was advanced to the fistula and after removing the needle a 7 Uzbek sheath was placed by Seldinger technique. A diagnostic fistulogram with central venogram was then performed with the previously described findings. I advanced the 0.035 J-wire into the central venous system and used a 12 x 40 Conquest Balloon to perform angioplasty of the fistula as well as macerating the thrombus. I deflated the balloon to approximately 1 marilynn pressure and then used this to remove thrombus from the wall of the fistula by dragging the balloon [id number] while applying our manual pressure. I then was able to aspirate some thrombus through the sheath. The follow-up fistulogram revealed brisk flow of contrast with less than 15% residual stenosis or thrombus. At this point the balloon and wire were removed and a 4-0 chromic in pursestring fashion was used to close the entry site after removing the sheath. A sterile dressing was then applied to the entry site and the patient was transported to the recovery area in stable condition.
[2022-06-08 06:59] LABS: Calcium 8.1 mg/dL (8.4-10.2)
--- NOTE | 2022-06-08 08:09 | Progress Note ---
Assessment and Plan Assessment and plan: 71-year-old male with history of end-stage renal disease presents to the emergency department with concern that he may have elevated potassium, and he was notified that his potassium from dialysis was 7.0, yesterday. Patient's only complaints are crampy bilateral leg pain. Vital signs and physical exam are unremarkable. Chest x-ray shows no acute abnormalities. Patient's chemistry is remarkable for potassium of 7.8, BUN of 90, and creatinine of 17.9. Patient was given calcium chloride, dextrose, insulin, sodium bicarbonate, and nebulized albuterol. Kayexalate was also ordered. Nephrology was consulted, and patient is having stat dialysis. EKG is sinus rhythm at 71 with long MA interval, LVH with no hyperacute T waves and no ST-T wave changes concerning for infarct. Patient was admitted to telemetry bed for malfunctioning AV fistula Hospital course 06/05: Procedure planned today for today. Diagnostic fistulogram today with possible intervention by vascular. 06/06: S/p fistulogram with angioplasty by vascular. Patient recieved dialysis yesterday however there are still concerns about functional status of fistula. Will be re-eval by vascular. He may need a temp HD catheter if remains nonfunctional. K = 6.8, given kionex this AM. Hyperkalemia cocktail ordered. 06/07: HD catheter placed. Electrolytes improved, K=4.7 this Am. Will follow nephrology plans for HD. NPO for procedure today with vascular. 06/08: Patient seen and examined today, reports some dizziness. Tolerated HD catheter placement and subsequent hemodialysis well. No complaints of headache, nausea, vomiting. No bleeding noted around catheter site. AWAITING final report from Vascular team. Will decrease dose of Procardia with a holding parameter. If fistula is still not able to be used patient will need a permacath and then plan for discharge. Monitor blood pressure to ensure improvement. Assessment and Plan: #Malfunctioning AV fistula POA - vascular surgery consulted - s/p fistulogram and thrombectomy/angioplasty on 06/05. - s/p HD catheter placement on 06/06. -will follow vascular plan and findings from procedure today. #ESRD on hemodialysis #Hypotension #Hyperkalemia - 6.6 on admission, kionex is ordered - correct with HD - nephrology consulted, will follow recs. #Thrombocytopenia #Anemia of chronic kidney disease - hgb stable #Essential Hypertension - 164/83 on admission, more controlled now - on procardial xl 60 mg po bid but will stop due to Hypotension. #Hyperlipidemia - resume home statin #Advance care planning Disease education conducted, care plan discussed, diagnoses discussed, prognosis discussed, patient is full code, patient acknowledges understanding and agree with care plan, discussed about patient clinical course and answered all questions to satisfaction. +30 minutes. +30 minutes. Time spent: +35 min CPT [id number] History Interval history: Patient seen and examined resting comfortably this morning however reports that throughout his stay he has been having dizziness that he believes is secondary to his blood pressure. States that he had stopped taking blood pressure medications in the last few months due to low blood pressure. Hospitalist Physical - Physical exam Narrative exam: General appearance: Present: no acute distress, sitting up, - Respiratory Respiratory effort: normal, CTA & P, on room air HEENT: Right neck HD catheter. - Cardiovascular Rhythm: regular - Extremities Extremities: abnormal (Left arm AV fistula with pulsatility near the arterial inflow and cannulation zone, no pulse or thrill is felt near the outflow) - Abdominal General gastrointestinal: Present: deferred Male genitourinary: Present: deferred Psych: Appropriate mood and affect - Rectal Rectal Exam: deferred - Constitutional Vitals: Temp Pulse Resp BP Pulse Ox 98.2 F 89 18 102/50 99 06/08/22 03:44 06/08/22 05:00 06/08/22 03:44 06/08/22 03:44 06/08/22 03:44 General appearance: Present: no acute distress Results - Labs CBC & Chem 7: 06/05/22 05:03 06/08/22 05:58 Labs: Laboratory Last Values WBC 5.3 K/mm3 (4.5-11.0) 06/05/22 05:03 RBC 3.49 M/mm3 (3.65-5.03) L 06/05/22 05:03 Hgb 9.9 gm/dl (11.8-15.2) L 06/05/22 05:03 Hct 31.9 % (35.5-45.6) L 06/05/22 05:03 MCV 91 fl (84-94) 06/05/22 05:03 MCH 29 pg (28-32) 06/05/22 05:03 MCHC 31 % (32-34) L 06/05/22 05:03 RDW 14.8 % (13.2-15.2) 06/05/22 05:03 Plt Count 130 K/mm3 (140-440) L 06/05/22 05:03 Lymph % (Auto) 34.4 % (13.4-35.0) 06/05/22 05:03 [place] % (Auto) 12.6 % (0.0-7.3) H 06/05/22 05:03 Eos % (Auto) 3.8 % (0.0-4.3) 06/05/22 05:03 Baso % (Auto) 0.8 % (0.0-1.8) 06/05/22 05:03 Lymph # (Auto) 1.8 K/mm3 (1.2-5.4) 06/05/22 05:03 [place] # (Auto) 0.7 K/mm3 (0.0-0.8) 06/05/22 05:03 Eos # (Auto) 0.2 K/mm3 (0.0-0.4) 06/05/22 05:03 Baso # (Auto) 0.0 K/mm3 (0.0-0.1) 06/05/22 05:03 Seg Neutrophils % 48.4 % (40.0-70.0) 06/05/22 05:03 Seg Neutrophils # 2.6 K/mm3 (1.8-7.7) 06/05/22 05:03 Sodium 139 mmol/L (137-145) 06/08/22 05:58 Potassium 3.9 mmol/L (3.6-5.0) 06/08/22 05:58 Chloride 92.7 mmol/L (98-107) L 06/08/22 05:58 Carbon Dioxide 28 mmol/L (22-30) 06/08/22 05:58 Anion Gap 22 mmol/L 06/08/22 05:58 BUN 33 mg/dL (9-20) H 06/08/22 05:58 Creatinine 10.1 mg/dL (0.8-1.3) H 06/08/22 05:58 Estimated GFR 6 ml/min 06/08/22 05:58 BUN/Creatinine Ratio 3 % 06/08/22 05:58 Glucose 92 mg/dL (75-100) 06/08/22 05:58 Calcium 8.1 mg/dL (8.4-10.2) L 06/08/22 05:58 Phosphorus 3.90 mg/dL (2.5-4.5) 06/07/22 23:37 Total Bilirubin 0.20 mg/dL (0.1-1.2) 06/03/22 21:33 AST 10 units/L (5-40) 06/03/22 21:33 ALT 9 units/L (7-56) 06/03/22 21:33 Alkaline Phosphatase 110 units/L (35-129) 06/03/22 21:33 Total Protein 8.5 g/dL (6.3-8.2) H 06/03/22 21:33 Albumin 5.4 g/dL (3.9-5) H 06/03/22 21:33 Albumin/Globulin Ratio 1.7 % 06/03/22 21:33 Nasal Screen MRSA (PCR) Negative (Negative) 06/04/22 06:30 Hepatitis A IgM Ab Non-reactive (NonReactive) 06/04/22 00:36 Hep Bs Antigen Non-reactive (Negative) 06/04/22 00:36 Hep B Core IgM Ab Non-reactive (NonReactive) 06/04/22 00:36 Hepatitis C Antibody Non-reactive (NonReactive) 06/04/22 00:36 Garcia/IV: Voiding Method Toilet Active Medications - Current Medications Current Medications: Generic Name Dose Route Start Last Admin Trade Name Freq PRN Reason Stop Dose Admin Acetaminophen 650 mg 06/04/22 01:58 Acetaminophen 325 Mg Tab PO Q4H PRN Pain MILD(1-3)/Fever >100.5/TAVERAS Albuterol 2.5 mg 06/04/22 09:00 Albuterol 2.5 Mg/3 Ml Nebu IH Q4HRT PRN Shortness Of Breath Allopurinol 100 mg 06/05/22 10:00 06/07/22 10:44 Allopurinol 100 Mg Tab PO 100 mg MoWeFr MELLISA Administration Amlodipine Besylate 2.5 mg 06/08/22 10:00 Amlodipine 5 Mg Tab PO QDAY MELLISA Atorvastatin Calcium 40 mg 06/05/22 22:00 06/07/22 21:31 Atorvastatin 40 Mg Tab PO 40 mg QHS MELLISA Administration Calcitriol 0.5 mcg 06/05/22 14:00 06/07/22 10:44 Calcitriol 0.5 Mcg Cap PO 0.5 mcg QDAY MELLISA Administration Cholecalciferol 10,000 unit 06/04/22 10:00 06/07/22 10:45 Cholecalciferol (Vit D3) 5,000 Unit Tab PO 10,000 unit QDAY MELLISA Administration Clopidogrel Bisulfate 75 mg 06/06/22 10:00 06/07/22 10:44 Clopidogrel 75 Mg Tab PO 75 mg QDAY MELLISA Administration Cyanocobalamin 500 mcg 06/04/22 10:00 06/07/22 10:43 Cyanocobalamin (Vit B-12) 1000 Mcg Tab PO 500 mcg QDAY MELLISA Administration Epoetin [place]-epbx 10,000 unit 06/06/22 17:00 06/06/22 17:38 Epoetin [place]-Epbx 10,000 Unit/1 Ml Vial IV 10,000 unit EM PRN Administration hemodialysis Famotidine 10 mg 06/04/22 10:00 06/07/22 21:32 Famotidine 10 Mg Tab PO 10 mg BID MELLISA Administration Sodium Chloride 100 mls @ 999 mls/hr 06/07/22 12:00 Nacl 0.9% IV EM PRN Hypotension Morphine Sulfate 2 mg 06/04/22 01:58 06/06/22 22:51 Morphine 2 Mg/1 Ml Inj IV 2 mg Q4H PRN Administration Pain, Moderate (4-6) Morphine Sulfate 4 mg 06/04/22 01:58 06/05/22 19:38 Morphine 4 Mg/1 Ml Inj IV 4 mg Q4H PRN Administration Pain , Severe (7-10) Multivitamins/Minerals 1 each 06/04/22 10:00 06/07/22 21:32 Calcium Carb/Vit D3/Minerals 600 Mg/800 Units Tab PO 1 each BID MELLISA Administration Ondansetron HCl 4 mg 06/04/22 01:58 Ondansetron 4 Mg/2 Ml Inj IV Q8H PRN Nausea And Vomiting Sodium Chloride 10 ml 06/04/22 10:00 06/07/22 21:33 Sodium Chloride 0.9% 10 Ml Flush Syringe IV 10 ml BID MELLISA Administration Sodium Chloride 10 ml 06/04/22 01:58 Sodium Chloride 0.9% 10 Ml Flush Syringe IV PRN PRN LINE FLUSH Nutrition/Malnutrition Assess - Dietary Evaluation Nutrition/Malnutrition Findings: Nutrition Notes Start: 06/04/22 12:15 Freq: Status: Active Protocol: Document 06/04/22 12:15 MARIA ALEJANDRA (Rec: 06/04/22 12:25 MARIA ALEJANDRA [id number]) Nutrition Notes Need for Assessment generated from: MD Order,Education Initial or Follow up Brief Note Current Diagnosis CKD(stage I-IV),Hypertension Other Pertinent Diagnosis ESDRD+HD, AV-Graft Malfuction, CHF, Hyperkalemia. Current Diet Renal Diet (since B 06/04). Height 5 ft 11 in Weight 119.1 kg [place] Body Weight (kg) 78.18 BMI 36.6 Intake Prior to Admission Good Weight change and time frame Pt denies having loss body weight [employer]. Weight Status Obese Subjective/Other Information RD consult for nutrition education assessment. Pt's PO intake of meals has been Good (75-100%) and well tolerated, according to ADL notes. Pt is on Room Air, O2 saturation @ 97%, according to Vital Signs notes. Pt still in critical condition , not a candidate for Nutrition Education at the time, will assess feasibility on F/U. Percent of energy/protein needs met: Prescribed Renal Diet provides for energy/protein needs (2, 072 Kcal/77 g) during LOS. Nutrition Intervention Follow-Up By: 06/09/22 Additional Comments Nutrition education will be provided at F/U, if feasible. Continue monitoring food tolerance, %PO intake of meals , and BM.
[2022-06-08] MEDS: FAMOTIDINE 10 MG TAB PO SCH (09:08)
[2022-06-08] MEDS: CLOPIDOGREL 75 MG TAB PO SCH (09:08)
[2022-06-08] MEDS: CYANOCOBALAMIN (VIT B-12) 1000 MCG TAB PO SCH (09:09)
[2022-06-08] MEDS: CALCIUM CARB/VIT D3/MINERALS 600 MG/800 UNITS TAB PO SCH (09:09)
[2022-06-08] MEDS: CALCITRIOL 0.5 MCG CAP PO SCH (09:16)
--- NOTE | 2022-06-08 09:23 | Progress Note ---
Assessment and Plan ESRD on Hemodialysis Anemia in CKD Hypertension Hyperkalemia Plan: HD today via AVF S/P vasc cath placement by IR on 06/06/22 S/P Left AVF thrombectomy and Angioplasty by IR on 06/05/22 and again on 11/07/21 Will need perm-cath placement prior to discharge if Left AVF remains malfunctioned Fluid restriction of 1 liter per day Low potassium diet Renally dose medications Strict I&O's daily Obtain daily weights Assess dialysis needs daily Goes to [facility] outpatient[facility] Subjective Date of service: 06/08/22 Principal diagnosis: ESRD Interval history: s/p fistulogram Objective - Vital Signs Vital signs: Vital Signs - 12hr 06/07/22 06/07/22 06/07/22 21:50 22:00 23:50 Temperature 98.2 F Pulse Rate 98 H Respiratory 18 18 Rate Respiratory Rate [Bilateral Leg] Blood Pressure 94/53 O2 Sat by Pulse 95 96 98 Oximetry 06/08/22 06/08/22 06/08/22 03:44 05:00 08:00 Temperature 98.2 F Pulse Rate 101 H 89 Respiratory 18 Rate Respiratory 18 Rate [Bilateral Leg] Blood Pressure 102/50 O2 Sat by Pulse 99 Oximetry 06/08/22 06/08/22 08:07 09:16 Temperature 98.8 F Pulse Rate 98 H Respiratory 18 Rate Respiratory Rate [Bilateral Leg] Blood Pressure 102/57 84/54 O2 Sat by Pulse 97 Oximetry - Lab 06/05/22 05:03 06/08/22 05:58 Most recent lab results Calcium 8.1 mg/dL (8.4-10.2) L 06/08/22 05:58 Phosphorus 3.90 mg/dL (2.5-4.5) 06/07/22 23:37 Medications & Allergies - Medications Allergies/Adverse Reactions: Allergies tramadol Adverse Reaction (Verified 06/05/22 10:59) Vomiting Patient states that when he takes tramadol on an empty stomach, it makes him vomit Home Medications: Home Medications Medication Instructions Recorded Confirmed Last Taken Type Cholecalciferol (Vitamin D3) 1 cap PO QDAY 06/30/21 06/05/22 09/05/21 09:00 History [Vitamin D3 5,000 UNIT] Cyanocobalamin (Vitamin B-12) 500 mcg SL QDAY 06/30/21 06/05/2209/05/21 09:00 History [Vitamin B-12] AtorvaSTATin [Lipitor] 40 mg PO QHS 06/04/22 06/05/22 Unknown History Multivitamin [Multiple Vitamins] 1 each PO QDAY 06/05/22 06/05/22 Unknown History Sodium Zirconium Cyclosilicate 10 gm PO QWEEK 06/05/22 06/05/22 Unknown History [Lokelma] calcitrioL [Rocaltrol] 0.5 mcg PO QDAY 06/05/22 06/05/22 Unknown History Active Medications: Generic Name Dose Route Start Last Admin Trade Name Freq PRN Reason Stop Dose Admin Acetaminophen 650 mg 06/04/22 01:58 Acetaminophen 325 Mg Tab PO Q4H PRN Pain MILD(1-3)/Fever >100.5/TAVERAS Albuterol 2.5 mg 06/04/22 09:00 Albuterol 2.5 Mg/3 Ml Nebu IH Q4HRT PRN Shortness Of Breath Allopurinol 100 mg 06/05/22 10:00 06/07/22 10:44 Allopurinol 100 Mg Tab PO 100 mg MoWeFr MELLISA Administration Amlodipine Besylate 2.5 mg 06/08/22 10:00 06/08/22 09:16 Amlodipine 5 Mg Tab PO Not Given QDAY MELLISA Atorvastatin Calcium 40 mg 06/05/22 22:00 06/07/22 21:31 Atorvastatin 40 Mg Tab PO 40 mg QHS MELLISA Administration Calcitriol 0.5 mcg 06/05/22 14:00 06/08/22 09:16 Calcitriol 0.5 Mcg Cap PO 0.5 mcg QDAY MELLISA Administration Cholecalciferol 10,000 unit 06/04/22 10:00 06/07/22 10:45 Cholecalciferol (Vit D3) 5,000 Unit Tab PO 10,000 unit QDAY MELLISA Administration Clopidogrel Bisulfate 75 mg 06/06/22 10:00 06/08/22 09:08 Clopidogrel 75 Mg Tab PO 75 mg QDAY MELLISA Administration Cyanocobalamin 500 mcg 06/04/22 10:00 06/08/22 09:09 Cyanocobalamin (Vit B-12) 1000 Mcg Tab PO 500 mcg QDAY MELLISA Administration Epoetin [place]-epbx 10,000 unit 06/06/22 17:00 06/06/22 17:38 Epoetin [place]-Epbx 10,000 Unit/1 Ml Vial IV 10,000 unit EM PRN Administration hemodialysis Famotidine 10 mg 06/04/22 10:00 06/08/22 09:08 Famotidine 10 Mg Tab PO 10 mg BID MELLISA Administration Sodium Chloride 100 mls @ 999 mls/hr 06/07/22 12:00 Nacl 0.9% IV EM PRN Hypotension Morphine Sulfate 2 mg 06/04/22 01:58 06/06/22 22:51 Morphine 2 Mg/1 Ml Inj IV 2 mg Q4H PRN Administration Pain, Moderate (4-6) Morphine Sulfate 4 mg 06/04/22 01:58 06/05/22 19:38 Morphine 4 Mg/1 Ml Inj IV 4 mg Q4H PRN Administration Pain , Severe (7-10) Multivitamins/Minerals 1 each 06/04/22 10:00 06/08/22 09:09 Calcium Carb/Vit D3/Minerals 600 Mg/800 Units Tab PO 1 each BID MELLISA Administration Ondansetron HCl 4 mg 06/04/22 01:58 Ondansetron 4 Mg/2 Ml Inj IV Q8H PRN Nausea And Vomiting Sodium Chloride 10 ml 06/04/22 10:00 06/07/22 21:33 Sodium Chloride 0.9% 10 Ml Flush Syringe IV 10 ml BID MELLISA Administration Sodium Chloride 10 ml 06/04/22 01:58 Sodium Chloride 0.9% 10 Ml Flush Syringe IV PRN PRN LINE FLUSH
[2022-06-08] MEDS ORDERED: amLODIPine 5 MG TAB PO SCH (10:00)
[2022-06-08] MEDS ORDERED: MIDODRINE 5 MG TAB PO ONE (11:54)
[2022-06-08] MEDS ORDERED: SODIUM CHLORIDE 0.9% 250ML 250 ML IV ONE (11:55)
--- NOTE | 2022-06-08 12:06 | Discharge Summary ---
Providers - Providers Date of Admission: 06/04/22 01:58 Attending physician: FEMI KLEIN MD 06/03/22 23:50 Consult to Physician [CONS] Stat Comment: Consulting Provider: LUPE MARIEE Physician Instructions: Reason For Exam: severe hyperkalemia 06/04/22 08:09 Physical Therapy Evaluation and Treat [CONS] Routine Comment: Reason For Exam: debility 06/04/22 09:24 Consult to Physician [CONS] Routine Comment: Consulting Provider: SARAH LE Physician Instructions: Reason For Exam: LEFT AV GRAFT MALFUNCTION 06/04/22 09:26 Consult to Dietitian/Nutrition [CONS] Routine Physician Instructions: Reason For Exam: Reason for Consult: Diet education Primary care physician: TREVOR HARRIS Hospitalization Reason for admission: Hyperkalemia Condition: Stable Hospital course: 71-year-old male with history of end-stage renal disease presents to the emergency department with concern that he may have elevated potassium, and he was notified that his potassium from dialysis was 7.0, yesterday. Patient's only complaints are crampy bilateral leg pain. Vital signs and physical exam are unremarkable. Chest x-ray shows no acute abnormalities. Patient's chemistry is remarkable for potassium of 7.8, BUN of 90, and creatinine of 17.9. Patient was given calcium chloride, dextrose, insulin, sodium bicarbonate, and nebulized albuterol. Kayexalate was also ordered. Nephrology was consulted, and patient is having stat dialysis. EKG is sinus rhythm at 71 with long VT interval, LVH with no hyperacute T waves and no ST-T wave changes concerning for infarct. Patient was admitted to telemetry bed for malfunctioning AV fistula Hospital course 06/05: Procedure planned today for today. Diagnostic fistulogram today with possible intervention by vascular. 06/06: S/p fistulogram with angioplasty by vascular. Patient recieved dialysis yesterday however there are still concerns about functional status of fistula. Will be re-eval by vascular. He may need a temp HD catheter if remains nonfunctional. K = 6.8, given kionex this AM. Hyperkalemia cocktail ordered. 06/07: HD catheter placed. Electrolytes improved, K=4.7 this Am. Will follow nephrology plans for HD. NPO for procedure today with vascular. 06/08: Patient seen and examined today, reports some dizziness. Tolerated HD catheter placement and subsequent hemodialysis well. No complaints of headache, nausea, vomiting. No bleeding noted around catheter site. AWAITING final report from Vascular team. Will decrease dose of Procardia with a holding parameter. If fistula is still not able to be used patient will need a permacath and then plan for discharge. Monitor blood pressure to ensure improvement. On re-evaluation and discussion with the vascular surgeon, patients Left Arm fistula is functional. I discussed with the HD nurse and the Internist Medical Doctor Md. Patient can be discharged post HD. Bp meds adjusted, Patient to monitor BP Before taking medications. Plan discussed in detail with the patient. Assessment and Plan: #Malfunctioning AV fistula POA - vascular surgery consulted - s/p fistulogram and thrombectomy/angioplasty on 06/05. - s/p HD catheter placement on 06/06. -will follow vascular plan and findings from procedure today. #ESRD on hemodialysis #Hypotension #Hyperkalemia - 6.6 on admission, kionex is ordered - correct with HD - nephrology consulted, will follow recs. #Thrombocytopenia #Anemia of chronic kidney disease - hgb stable #Essential Hypertension - 164/83 on admission, more controlled now - on procardial xl 60 mg po bid but will stop due to Hypotension. #Hyperlipidemia - resume home statin #Advance care planning Disease education conducted, care plan discussed, diagnoses discussed, prognosis discussed, patient is full code, patient acknowledges understanding and agree with care plan, discussed about patient clinical course and answered all questions to satisfaction. +30 minutes. +30 minutes. Disposition: HOME / SELF CARE / HOMELESS Final Discharge Diagnosis (Prints w/discharge instructions): Malfunctioning Left AV fistula POA. #ESRD on hemodialysis. #Hypotension. #Hyperkalemia. #Thrombocytopenia. #Anemia of chronic kidney disease. #Essential Hypertension. #Hyperlipidemia Time spent for discharge: 35 mins Core Measure Documentation - Palliative Care Palliative Care/ Comfort Measures: Not Applicable - Core Measures Any of the following diagnoses?: none Exam - Physical Exam Narrative exam: General appearance: Present: no acute distress, sitting up, - Respiratory Respiratory effort: normal, CTA & P, on room air HEENT: Right neck HD catheter. - Cardiovascular Rhythm: regular - Extremities Extremities: abnormal (Left arm AV fistula with pulsatility near the arterial inflow and cannulation zone, no pulse or thrill is felt near the outflow) - Abdominal General gastrointestinal: Present: deferred Male genitourinary: Present: deferred Psych: Appropriate mood and affect - Rectal Rectal Exam: deferred - Constitutional Vitals: Temp Pulse Resp BP Pulse Ox 98.8 F 98 H 18 84/54 97 06/08/22 08:07 06/08/22 08:07 06/08/22 08:07 06/08/22 09:16 06/08/22 08:07 Plan Activity: advance as tolerated, fall precautions Diet: renal Special Instructions: record daily weights, record daily BP diary Care Plan Goals: Please follow with your primary doctor about BP checks Follow up with: TREVOR HARRIS MD [Primary Care Provider] - 7 Days SARAH LE MD [Staff Physician] - 7 Days LUPE MARIEE MD [Staff Physician] - 7 Days Prescriptions: Clopidogrel [Plavix] 75 mg PO QDAY #30 tablet
[2022-06-08 13:21] VITALS: BP 118/65
== END 2022-06-08 16:00 | disposition home or self-care (01) | DRG 252 ==
LOC: ED 18:22 → 4A 06-04 01:58 → 3A 06-04 04:20 → IMCU 06-04 04:34 → 4A 06-04 18:37
PROVIDERS: ADMIT Hospitalist; ATTEND Internal Medicine
PROC: 5A1D70Z Performance of Urinary Filtration, Intermittent, Less than 6 Hours Per Day (ICD-10-PCS; 2022-06-04)
PROC: 057F3DZ Dilation of Left Cephalic Vein with Intraluminal Device, Percutaneous Approach (ICD-10-PCS; principal; 2022-06-05)
PROC: 05CF3ZZ Extirpation of Matter from Left Cephalic Vein, Percutaneous Approach (ICD-10-PCS; 2022-06-05)
PROC: 3E03317 Introduction of Other Thrombolytic into Peripheral Vein, Percutaneous Approach (ICD-10-PCS; 2022-06-05)
PROC: 5A1D70Z Performance of Urinary Filtration, Intermittent, Less than 6 Hours Per Day (ICD-10-PCS; 2022-06-05)
PROC: B5181ZA Fluoroscopy of Superior Vena Cava using Low Osmolar Contrast, Guidance (ICD-10-PCS; 2022-06-06)
PROC: 02H633Z Insertion of Infusion Device into Right Atrium, Percutaneous Approach (ICD-10-PCS; 2022-06-06)
PROC: B548ZZA Ultrasonography of Superior Vena Cava, Guidance (ICD-10-PCS; 2022-06-06)
PROC: 5A1D70Z Performance of Urinary Filtration, Intermittent, Less than 6 Hours Per Day (ICD-10-PCS; 2022-06-06)
PROC: 05CY3ZZ Extirpation of Matter from Upper Vein, Percutaneous Approach (ICD-10-PCS; 2022-06-07)
PROC: B51W1ZZ Fluoroscopy of Dialysis Shunt/Fistula using Low Osmolar Contrast (ICD-10-PCS; 2022-06-07)
PROC: 5A1D70Z Performance of Urinary Filtration, Intermittent, Less than 6 Hours Per Day (ICD-10-PCS; 2022-06-07)
PROC: 037Y3ZZ Dilation of Upper Artery, Percutaneous Approach (ICD-10-PCS; 2022-06-07)
PROC: 03CY3ZZ Extirpation of Matter from Upper Artery, Percutaneous Approach (ICD-10-PCS; 2022-06-07)
PROC: 5A1D70Z Performance of Urinary Filtration, Intermittent, Less than 6 Hours Per Day (ICD-10-PCS; 2022-06-08)
DX: T82.590A Other mechanical complication of surgically created arteriovenous fistula, initial encounter (principal); N18.6 End stage renal disease; I13.2 Hypertensive heart and chronic kidney disease with heart failure and with stage 5 chronic kidney disease, or end stage renal disease; E87.5 Hyperkalemia; D63.1 Anemia in chronic kidney disease; I50.9 Heart failure, unspecified; Z82.49 Family history of ischemic heart disease and other diseases of the circulatory system; Z20.822 Contact with and (suspected) exposure to COVID-19
CPT/HCPCS: 36415; 36556; 36902; 36906; 71045; 80048; 80053; 80074; 82962; 84100; 85025; 85027; 87641; 93005; 93990; 94640; 94644; 99291; G0378; J3490; Q9967; C1725; C1751; C1752; C1757; C1769; C1874; C1894; J0610; J0690; J0885; J1644; J1815; J2250; J2270; J2405; J2765; J2997; J3010; J7040; J7050